=== PATIENT | female | born 1985 | race Caucasian/White ===

== ENCOUNTER 2016-12-30 08:31 | Emergency (ER) | payer BC, MEDICAID ==
[2016-12-30 08:47] VITALS: BP 110/63
--- NOTE | 2016-12-30 09:01 | EDM.PDOC ---
ED HPI ENT - General Chief Complaint: ENT Problem Stated Complaint: TOOTH Time Seen by Provider: 12/30/16 08:45 Source of Information: Reports: Patient History Limitations: Reports: No limitations - History of Present Illness INITIAL COMMENTS - FREE TEXT/NARRATIVE: HISTORY AND PHYSICAL: History of present illness: [31-year-old female with no significant past medical history now several days status post wisdom teeth extraction. Patient is a smoker and she has smoked after her extraction. Now she is having increased pain at the right maxillary molar extraction site. Patient thinks she has dry socket. She had it once before after an extraction and she smoked in that post procedural period as well. No swelling no fevers chills sweats or shaking chills no headache or stiff neck. Patient describes painless extraocular muscle excursion. No chest pain palpitations or shortness of breath Review of systems: As per history of present illness and below otherwise all systems reviewed and negative. Past medical history: As per history of present illness and as reviewed below otherwise noncontributory. Surgical history: As per history of present illness and as reviewed below otherwise noncontributory. Social history: No reported history of drug or alcohol abuse. Family history: As per history of present illness and as reviewed below otherwise noncontributory. Physical exam: HEENT: Atraumatic, normocephalic, pupils reactive, negative for conjunctival pallor or scleral icterus, mucous membranes moist, throat clear, neck supple, nontender, trachea midline. Intraoral exam benign and unremarkable appearance of right maxillary molar extraction site with no swelling mass or fluctuance. There is some local tenderness Lungs: Clear to auscultation, breath sounds equal bilaterally, chest nontender. Heart: S1S2, regular, negative for clicks, rubs, or JVD. Abdomen: nondistended, . Negative for costovertebral tenderness. Pelvis: Normal appearing. Genitourinary: Deferred. Rectal: Deferred. Extremities: Atraumatic, normal-appearing Neuro: Awake, alert, oriented. Cranial nerves grossly unremarkable. Cerebellum unremarkable. Motor and sensory unremarkable throughout. Exam nonfocal. Diagnostics: [] Therapeutics: [] Impression: [] Plan: [Signs and symptoms consistent with dry socket in a patient who is an active smoker with a prior history of dry socket in the context of smoking after prior dental extraction. Patient feels symptoms are identical with worsening pain at the site of a single extraction. No evidence of abscess swelling or mass. Patient aware to take NSAIDs. Topical lidocaine dental ball applied. Patient given dose of NSAIDs in the emergency department. Discussed with patient will give prescription for 5 [place] for use as needed as patient states the pain is significant and makes it difficult for her to sleep. She is aware to followup with her dental provider for reevaluation tomorrow. No further workup or treatment indicated. patient agrees with outpatient followup. Strict return precautions given Definitive disposition and diagnosis as appropriate pending reevaluation and review of above. - Related Data Allergies/ADRs: Allergies Allergy/AdvReac Type Severity Reaction Status Date / Time lurasidone [From Latuda] Allergy Hives Verified 12/30/16 08:45 Home Meds: Home Meds Levofloxacin [Levaquin] 750 mg PO DAILY #10 tablet 07/25/16 [Rx] Past Medical History - Past Health History Medical/Surgical History: Denies Medical/Surgical History HEENT History: Reports: Impaired vision Other HEENT History: wears glasses Cardiovascular History: Reports: None Respiratory History: Reports: None Gastrointestinal History: Reports: Chronic constipation Genitourinary History: Reports: None [employer] CHIEF History: Reports: Musculoskeletal History: Reports: Fracture, Fibromyalgia Other Musculoskeletal History: hx of fx left wrist Neurological History: Reports: None Psychiatric History: Reports: Anxiety, Depression Endocrine/Metabolic History: Reports: None Hematologic History: Reports: None Immunologic History: Reports: None Oncologic (Cancer) History: Reports: None Dermatologic History: Reports: None - Infectious Disease History Infectious Disease History: Reports: Chicken pox, MRSA - Past Surgical History Head Surgeries/Procedures: Reports: None HEENT Surgical History: Reports: None Cardiovascular Surgical History: Reports: None Respiratory Surgical History: Reports: None GI Surgical History: Reports: None Female Surgical History: Reports: Other (see below) Other Female Surgeries/Procedures: Laparoscopy Endocrine Surgical History: Reports: None Neurological Surgical History: Reports: None Musculoskeletal Surgical History: Reports: None Oncologic Surgical History: Reports: None Dermatological Surgical History: Reports: None Social & Family History - Family History Family Medical History: Noncontributory - Tobacco Use Smoking Status *Q: Current Every Day Smoker Years of Tobacco use: 13 Packs/Tins Daily: 0.5 Second Hand Smoke Exposure: Yes - Caffeine Use Caffeine Use: Reports: Coffee, Energy drinks, Soda Caffeine Use Comment: 1-2/day - Recreational Drug Use Recreational Drug Use: No Drug Use in Last 12 Months: Yes Recreational Drug Type: Reports: Methamphetamine, Other (see below) Other Recreational Drug Type: pain killers Recreational Drug Use Frequency: Weekly Recreational Drug Last Use: 07/23/16 ED ROS ENT - Review of Systems Review Of Systems: See Below (Per history of present illness) ED EXAM, ENT - Physical Exam Exam: See Below (Per history of present illness) Course - Vital Signs Last Recorded V/S: Last Vital Signs Temp 36.9 C 12/30/16 08:42 Pulse 92 12/30/16 08:42 Resp 16 12/30/16 08:42 BP 110/63 12/30/16 08:42 Pulse Ox 99 12/30/16 08:42 - Orders/Labs/Meds Meds: Medications Discontinued Medications Generic Name Dose Route Start Last Admin Trade Name Tony PRN Reason Stop Dose Admin Benzocaine 2 each 12/30/16 09:05 12/30/16 09:13 Hurricaine One 20% MUCMEM 12/30/16 09:06 2 each ONETIME ONE Administration Ketorolac Tromethamine 60 mg 12/30/16 09:05 12/30/16 09:13 Toradol IM 12/30/16 09:06 60 mg ONETIME ONE Administration Lidocaine HCl 20 ml 12/30/16 09:05 12/30/16 09:16 Xylocaine 2% Viscous PO 12/30/16 09:06 Not Given ONETIME ONE Lidocaine HCl 15 ml 12/30/16 09:12 12/30/16 09:13 Xylocaine 2% Viscous PO 12/30/16 09:13 15 ml ONETIME ONE Administration Lidocaine HCl Confirm 12/30/16 09:10 12/30/16 09:17 Xylocaine 2% Viscous Administered 12/30/16 09:11 Not Given Dose 15 ml .ROUTE .STK-MED ONE Departure - Departure Time of Disposition: 09:23 Disposition: Home, Self-Care 01 Condition: good Clinical Impression: Alveolar osteitis Instructions: Dental Dry Socket, [id number] Referrals: PCP,None [Primary Care Provider] - Forms: ED Department Discharge Additional Instructions: Your symptoms and findings suggesting a dry socket from your recent tooth extraction. It is very likely that your continued smoking after the dental procedure precipitated this. Stop smoking. Take 800 mg ibuprofen every 6 hours as needed for pain. You've been given a prescription for 5 [place] 5/325 -use [place] as needed time if you're unable to sleep because of pain drink alcohol or take any other sedative medication in addition to this medication. Failure to heed this warning could result in . Followup with your oral surgeon tomorrow for reevaluation, further care, and continued pain control as needed.
[2016-12-30] MEDS ORDERED: Benzocaine 20% Topical Spray UD MUCMEM ONE (09:05)
[2016-12-30] MEDS ORDERED: Lidocaine 2% Viscous Solution 100 ML Bottle PO ONE (09:05)
[2016-12-30] MEDS ORDERED: Ketorolac 60 MG/2 ML SDV IM ONE (09:05)
[2016-12-30] MEDS ORDERED: Lidocaine 2% Viscous Solution 15 ML Cup ONE (09:10)
[2016-12-30] MEDS ORDERED: Lidocaine 2% Viscous Solution 15 ML Cup PO ONE (09:12)
== END 2016-12-30 09:37 | disposition home or self-care (01) ==
LOC: MW.ED 08:31
DX: M27.3 Alveolitis of jaws (principal); F17.210 Nicotine dependence, cigarettes, uncomplicated; Z88.8 Allergy status to other drugs, medicaments and biological substances; Z79.899 Other long term (current) drug therapy; Z98.890 Other specified postprocedural states
CPT/HCPCS: 99282; A9270; J1885; 99283

== ENCOUNTER → 2017-01-22 | Outpatient (CLI) | payer BC, MEDICAID ==
--- NOTE | 2017-01-23 12:14 | CR ---
EXAM DATE: 01/22/17 PATIENT'S AGE: 31 Patient: GENEVIEVE GOMEZ Facility: [place], [place] Site . Site : 1985 Study: XRay Spine Cervical [id number]/25/2017 9:03:41 AM Ordering Physician: Germaine Otero Final Report: HISTORY: Neck pain to right shoulder. Findings: AP, lateral and open-mouth views of the cervical spine demonstrate the dens is intact. The lateral masses are situated normally on C2. The atlanto dens interval is normal. There is loss of lordosis present. Prevertebral soft tissues are normal. There is minimal peridiscal spurring seen at C5-6. No subluxation is seen. Impression: 1. Loss of lordosis. This may be a result of muscle spasm versus positioning. 2. Minimal degenerative changes of the disc at C5-6. Dictated by Brittany Reinoso MD @ Jan 23 2017 1:54AM (Electronic Signature) Report Signed by Proxy and Original Signed Document filed in the Medical Record. MTDD
--- NOTE | 2017-01-25 15:19 | BTN ---
SERVICE DATE: 01/25/2017 PATIENT #: [id number] #: NOT DICTATED IDENTIFICATION: Naveen is a 31-year-old female, who is here today for a followup visit. I saw her, almost a month ago. CURRENT MEDICATIONS: Wellbutrin XL 450 mg daily, Paxil 20 mg b.i.d. She also takes Seroquel 200 mg at bedtime, vitamin B complex, elemental folate, and fish oil. ALLERGIES: She has an allergy to Latuda. CHIEF COMPLAINT: "Alright." HISTORY OF PRESENT ILLNESS: Naveen states that she is kind a headed down week. Her mom and her 9-year-old daughter just left about a week ago, so she has been more down this week than before. She thinks the increase in the Paxil has helped a little bit and in reviewing her previous medications, she has been on just about every medication and most of them have provided very little benefit or no benefit at all. She is getting 7 or 8 hours of sleep at night, but does wake up in the night but gets to sleep within 5-10 minutes. Rates her mood on a scale of 1-10, 1 is the worst, 10 is the best, at about a seven. PHQ-9 score is 15, JORDEN-7 score is 8. She still has some anxiety symptoms, trouble relaxing, worries, feels anxious, no energy and that is probably her number one symptom. As she just has no energy, she constantly feels tired, trouble concentrating. No suicidal or homicidal ideation. Denies any hallucinations. PAST FAMILY SOCIAL HISTORY: She is going to probably be moving back to [place] where her daughter is. She said it is just too hard being away from her. Her mom lives in [place]. Her daughter lives with the daughter's dad in [place] and so Naveen feels that it would be best for her to go back there. She left there about 6-8 months ago because she got caught up in some drug staff, but she said she feels she has come a long ways and if she did leave it, would not be until at the earliest next June or maybe the following October. REVIEW OF SYSTEMS: She recently had some musculoskeletal issues. She felt something pulling her neck, so she went to see her primary care provider, and she may need to have an MRI. The provider gave her some diclofenac as well as some cyclobenzaprine. She said she did not have to take cyclobenzaprine during the day yesterday, but last night she did have to. She is also concerned because she has had a 35- pound weight gain in the last 6 months, but we discussed that this might because beforehand she was not eating when she was doing drugs and now she has a bigger appetite. It also could be from the Seroquel. PHYSICAL EXAMINATION: VITAL SIGNS: Blood pressure is 117/77, heart rate 88, respirations 16, temperature is 98.8. Height 65-1/2 inches tall, weight is 169.4 pounds. GENERAL APPEARANCE: She is very well groomed, very pleasant, appears her stated age. Muscle strength and tone appears good. Gait and station are good. Speech is clear and appropriate. Coherent. Thought processes are logical. Associations are intact. I do not see any delusions. She denies hallucinations. Mood and affect are pleasant, euthymic, and are congruent. Insight and judgment appear to be intact. MENTAL STATUS EXAM: She is alert and oriented x3. Recent and remote memory appear intact. Attention span appears to be good. Language is adequate. Fund of knowledge appears adequate. DIAGNOSES: [place] I: Bipolar depression, F31.60; anxiety, F41.8. [place] II: No diagnosis. [place] III: She has some kind of a muscle issue in her neck right now. [place] IV: Stressors, her daughter going back to [place], her fatigue during the day which has been significant still. [place] V: Current Global Assessment of Functioning score 69. TREATMENT PLAN: We discussed different options. We also discussed the possibility of maybe trying to get the sleep study done, but she said there was just absolutely no way she can afford it with her high deductible at this time. The tiredness and fatigue are not anything real new. She has always had a tendency to be very tired throughout her life, but she has noticed it more in the last year, so I am going to increase the Paxil to 30 mg b.i.d. and see if that makes any benefit for her or if it helps at all. Paxil has been the one thing that has been helpful to her, so hopefully we can get a little bit more benefit from it. I am going to see her back in a month. If she has problems before that, she will call. /[id number]
== END ==
LOC: MW.CHFP 08:50
PROVIDERS: ATTEND Nurse Practitioner Family
DX: S16.1XXA Strain of muscle, fascia and tendon at neck level, initial encounter (principal); M40.50 Lordosis, unspecified, site unspecified
CPT/HCPCS: 72040; 72040-26

== ENCOUNTER → 2017-02-13 | Outpatient (CLI) | payer BC, MEDICAID ==
--- NOTE | 2017-02-27 16:50 | BTN ---
SERVICE DATE: 02/27/2017 PATIENT #: [id number] #: NOT DICTATED IDENTIFICATION: Naveen is a 31-year-old female, who is here today for a followup. CURRENT MEDICATIONS: Paxil 30 mg b.i.d., Wellbutrin XL 450 mg a day, Seroquel 200 mg at bedtime, L- methylfolate 15 mg a day. She takes omega-3 fatty acids and B complex. ALLERGIES: She has an allergy to Latuda. CHIEF COMPLAINT: "just being so tired." HISTORY OF PRESENT ILLNESS: Naveen has had some issues with this fatigue now for quite a while. Initially it sounded like it just started recently, but in talking to her today, it has been going on for quite a while, even before she moved to [place], she has gained a lot a weight, but her weight has bounced back and forth over the last 5 years. Highest her weight went was 190 pounds, today she is at 171.8 pounds. She has lost weight in the past by doing exercising and doing phentermine from her doctor. She has tried recently shred stack, Hydroxycut, and crave but none of those seems to have helped. She is extremely tired. She does not get any exercise. She said her mood is okay. No suicidal or homicidal ideation. Sleeps too good. PHQ-9 score is 16. She states that since we increased the Paxil to 30 mg twice a day, she has not really seen a big change with that. Stressors are just her extreme fatigue, her weight gain, and the fact that her daughters in [place]. I talked to her about the Seroquel at bedtime and that could certainly create some of this weight gain plus it can also create the sedation, but she said she has to take Seroquel at bedtime or she does not sleep, so she does not want to get rid of that. She is willing to get rid of the Paxil and maybe try something different. She has tried just a huge variety of medications in the past and those include previous medication she has tried include Abilify, Cymbalta, Zoloft, Celexa, trazodone, Paxil, Effexor, Latuda, Lamictal, and Risperdal, to name a few, she said there might even be more than that, she does not remember. So, overall her big issues are the weight gain and extreme fatigue and she does have a history in the past of some drug abuse. She said her drug of choice was always the opiates. PAST FAMILY AND SOCIAL HISTORY: She is from [place], and I think part of the issue is that she is lonesome here, she does not have anyone here other than she does have a sister, but she is pretty much on her own. 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 REVIEW OF SYSTEMS: I went back, I checked her lab, she recently had a UTI but other than that, there have been no medical problems. She states that when she lived in [place], they did do some checking on her thyroid, she thinks, but she is not sure and I do not have anything on file for that, but she does not know about anemia. She is not really sure whether it is thyroid, but other than that, she has never had any like cardiac problems, respiratory problems, although she does smoke cigarettes still. PHYSICAL EXAMINATION: VITAL SIGNS: Blood pressure is 114/74, heart rate 92, respirations 16, temperature is 98.5, weight is 171.8 pounds, height 65-1/2 inches. GENERAL APPEARANCE: Naveen is well groomed. She is very pleasant, well developed, well nourished. She appears her stated age. Her gait and station are normal. Her speech is clear and appropriate. I do not see any perseverating. Her thought processes are logical and linear. I do not see any pressured speech or tangential speech. She denies hallucinations. I do not see any delusions. She said her mood is "okay." Affect appears a little bit flat. Insight and judgment appears to be fairly good. MENTAL STATUS EXAMINATION: She is alert and oriented x3. Recent and remote memory appear intact. Attention span appears good. Language good. Fund of knowledge appears adequate for developmental age. DIAGNOSES: [place] I: Bipolar, mixed, F31.60. Anxiety, F41.8. [place] II: No diagnosis. [place] III: No diagnosis. [place] IV: Current stressors; her fatigue, the weight gain. [place] V: Current Global Assessment of Functioning score 67. TREATMENT PLAN: We discussed many options, such as maybe going back to her primary care and see if she can get on phentermine again and get on a good diet plan and that might increase her energy and also help her lose weight on top of she needs to do some exercising. She does not want to stop the Seroquel because she feels like she will not sleep without that and that could be a culprit with both of these issues. She wants to try something different in the Paxil. She said she is doing okay, but she has never really seen a good benefit with it. We have talked in the past about different medications and whatever we have talked about is Trintellix. She would like to give that a try. If that does not work, I want her to see her primary care to see if they can come up with why she is so incredibly fatigued. She was supposed to have a sleep study done, that has not been done because she could not get to [facility] and do it and I do not know, if that is indeed what is going on here, but anyway we will wean off the Paxil, she will do 15 mg b.i.d. for 7 days and then discontinue. At the same time, this week, she will start Trintellix 5 mg a day. I discussed side effects with her. I had considered momentarily maybe doing a stimulant but with her history of drug abuse, I do not think that is a good idea. I am also going to get some labs. I cannot find any labs in her record whatsoever. I am going to get a CMP, a CBC, and a thyroid study and see if there is anything there that indicates why she is so incredibly tired. Hopefully, we will get some benefit from the Trintellix. I am going to see her back in a month. If she has problems before that, she will call. /[id number]
== END ==
LOC: MW.CHFP 15:35
PROVIDERS: ATTEND Nurse Practitioner Family
DX: Z00.00 Encounter for general adult medical examination without abnormal findings (principal); R39.9 Unspecified symptoms and signs involving the genitourinary system
CPT/HCPCS: 81001; 81025; 87086; 87088; 87186

== ENCOUNTER 2018-01-11 09:07 | Emergency (ER) | payer BC ==
[2018-01-11] MEDS ORDERED: Ketorolac 30 MG/ML SDV IVPUSH ONE (09:23)
[2018-01-11] MEDS ORDERED: Sodium Chloride 0.9% 1,000 ML IV ONE (09:23)
[2018-01-11] MEDS ORDERED: Sodium Chloride 0.9% 500 ML IV SCH ×2 (09:45)
[2018-01-11 10:21] LABS: CHLORIDE,CL 107 mmol/L (98-107); SODIUM,NA 141 mmol/L (136-145)
[2018-01-11] MEDS ORDERED: LORazepam 2 MG/ML SDV IVPUSH ONE (10:53)
[2018-01-11] MEDS ORDERED: Promethazine 25 MG/ML SDV IM ONE (10:53)
[2018-01-11] MEDS ORDERED: diphenhydrAMINE 50 MG/ML SDV IVPUSH ONE (10:53)
[2018-01-11] MEDS ORDERED: Meperidine PF 25 MG/ML Syringe IVPUSH ONE (11:29)
--- NOTE | 2018-01-11 11:36 | EDM.PDOC ---
ED HPI GENERAL MEDICAL PROBLEM - General Chief Complaint: Headache Stated Complaint: HEADACHES Time Seen by Provider: 01/11/18 11:32 Source of Information: Reports: Patient - History of Present Illness INITIAL COMMENTS - FREE TEXT/NARRATIVE: HISTORY AND PHYSICAL: History of present illness: [Patient with history of migraine presents with headache which is lasted 4-5 days, she has been taking Fioricet without any benefit she rates pain 5 out of 10 diffuse with intermittent nausea no current fever nausea vomiting diarrhea constipation chest pain shortness breath dizziness or palpitation no bowel or urine symptoms no scotomas or visual change ] Review of systems: As per history of present illness and below otherwise all systems reviewed and negative. Past medical history: As per history of present illness and as reviewed below otherwise noncontributory. Surgical history: As per history of present illness and as reviewed below otherwise noncontributory. Social history: No reported history of drug or alcohol abuse. Family history: As per history of present illness and as reviewed below otherwise noncontributory. Physical exam: HEENT: Atraumatic, normocephalic, pupils reactive, negative for conjunctival pallor or scleral icterus, mucous membranes moist, throat clear, neck supple, nontender, trachea midline. Lungs: Clear to auscultation, breath sounds equal bilaterally, chest nontender. Heart: S1S2, regular, negative for clicks, rubs, or JVD. Abdomen: Soft, nondistended, nontender. Negative for masses or hepatosplenomegaly. Negative for costovertebral tenderness. Pelvis: Stable nontender. Genitourinary: Deferred. Rectal: Deferred. Extremities: Atraumatic, negative for cords or calf pain. Neurovascular unremarkable. Neuro: Awake, alert, oriented. Cranial nerves II through XII unremarkable. Cerebellum unremarkable. Motor and sensory unremarkable throughout. Exam nonfocal. Diagnostics: [ BCT CMP UA hCG Head CT no contrast ] Therapeutics: [1 L normal saline bolus Zofran 8 mg IV Toradol 30 mg IV Ativan 1 mg, Benadryl 50 mg, Phenergan 25 mg IV Demerol 25 mg IV Patient headache improved Follow-up with neurology Impression: [ headache - improved] Definitive disposition and diagnosis as appropriate pending reevaluation and review of above. Headache Pain Score (Numeric/FACES): 7 - Related Data Allergies Allergy/AdvReac Type Severity Reaction Status Date / Time lurasidone [From Latuda] Allergy Hives Verified 01/11/18 09:16 Home Meds: Home Meds Levofloxacin [Levaquin] 750 mg PO DAILY #10 tablet 07/25/16 [Rx] Acetaminophen/Butalbital/Caff [Fioricet 325-50-40 MG] 1 tab PO BID 01/11/18 [ History] Desvenlafaxine Succinate [Pristiq] 25 mg PO DAILY 01/11/18 [History] Escitalopram [Lexapro] 20 mg PO DAILY 01/11/18 [History] Ramireno Carbonate [Eskalith] 300 mg PO DAILY 01/11/18 [History] buPROPion [buPROPion XL] 450 mg PO DAILY 01/11/18 [History] Past Medical History - Past Health History Medical/Surgical History: Denies Medical/Surgical History HEENT History: Reports: Impaired Vision Other HEENT History: wears glasses Cardiovascular History: Reports: None Respiratory History: Reports: None Gastrointestinal History: Reports: Chronic Constipation Genitourinary History: Reports: None 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: Musculoskeletal History: Reports: Fracture, Fibromyalgia Other Musculoskeletal History: hx of fx left wrist Neurological History: Reports: None Psychiatric History: Reports: Anxiety, Depression Endocrine/Metabolic History: Reports: None Hematologic History: Reports: None Immunologic History: Reports: None Oncologic (Cancer) History: Reports: None Dermatologic History: Reports: None - Infectious Disease History Infectious Disease History: Reports: Hepatitis C - Past Surgical History Head Surgeries/Procedures: Reports: None Cardiovascular Surgical History: Reports: None Respiratory Surgical History: Reports: None Female Surgical History: Reports: Other (See Below) Endocrine Surgical History: Reports: None Neurological Surgical History: Reports: None Musculoskeletal Surgical History: Reports: None Oncologic Surgical History: Reports: None Dermatological Surgical History: Reports: None Social & Family History - Family History Family Medical History: Noncontributory - Tobacco Use Smoking Status *Q: Current Every Day Smoker Years of Tobacco use: 15 Packs/Tins Daily: 0.2 Second Hand Smoke Exposure: Yes - Caffeine Use Caffeine Use: Reports: Energy Drinks Caffeine Use Comment: 1-2/day - Recreational Drug Use Recreational Drug Use: No Drug Use in Last 12 Months: Yes Recreational Drug Type: Reports: Methamphetamine, Other (see below) Other Recreational Drug Type: pain killers Recreational Drug Use Frequency: Weekly Recreational Drug Last Use: 07/23/16 ED ROS GENERAL - Review of Systems Review Of Systems: ROS reveals no pertinent complaints other than HPI. ED EXAM, GENERAL - Physical Exam Exam: See Below Course - Vital Signs Last Recorded V/S: Last Vital Signs Temp 98.0 F 01/11/18 09:14 Pulse 82 01/11/18 10:37 Resp 16 01/11/18 10:37 BP 113/63 01/11/18 10:37 Pulse Ox 98 01/11/18 10:37 - Orders/Labs/Meds Orders: Active Orders 24 hr Category Date Time Status Head wo Cont [CT] Stat Exams 01/11/18 09:19 Taken HCG QUALITATIVE,URINE [URCHEM] Stat Lab 01/11/18 09:25 Ordered LITHIUM [REF] Stat Lab 01/11/18 09:40 Received UA W/MICROSCOPIC [URIN] Stat Lab 01/11/18 09:25 Ordered Sodium Chloride 0.9% [Normal Saline] 500 ml Med 01/11/18 09:45 Active IV .BOLUS Sodium Chloride 0.9% [Normal Saline] 500 ml Med 01/11/18 09:45 Active IV .BOLUS Medication Orders Sodium Chloride (Normal Saline) 500 mls @ 999 mls/hr IV .BOLUS YESSI Last Admin: 01/11/18 09:42 Dose: 999 mls/hr Sodium Chloride (Normal Saline) 500 mls @ 99 mls/hr IV .BOLUS YESSI Last Admin: 01/11/18 09:41 Dose: 99 mls/hr Labs: Laboratory Tests 01/11/18 01/11/18 01/11/18 Range/Units 09:25 09:25 09:40 WBC 5.81 (4.0-11.0) K/uL RBC 4.33 (4.30-5.90) M/uL Hgb 13.6 (12.0-16.0) g/dL Hct 39.1 (36.0-46.0) % MCV 90.3 (80.0-98.0) fL MCH 31.4 (27.0-32.0) pg MCHC 34.8 (31.0-37.0) g/dL RDW Std Deviation 40.8 (28.0-62.0) fl RDW Coeff of Ana 12 (11.0-15.0) % Plt Count 238 (150-400) K/uL MPV 9.20 (7.40-12.00) fL Neut % (Auto) 59.6 (48.0-80.0) % Lymph % (Auto) 28.2 (16.0-40.0) % [place] % (Auto) 7.4 (0.0-15.0) % Eos % (Auto) 4.5 (0.0-7.0) % Baso % (Auto) 0.3 (0.0-1.5) % Neut # (Auto) 3.5 (1.4-5.7) K/uL Lymph # (Auto) 1.6 (0.6-2.4) K/uL [place] # (Auto) 0.4 (0.0-0.8) K/uL Eos # (Auto) 0.3 (0.0-0.7) K/uL Baso # (Auto) 0.0 (0.0-0.1) K/uL Nucleated RBC % 0.0 /100WBC Nucleated RBCs # 0 K/uL Sodium (136-145) mmol/L Potassium (3.5-5.1) mmol/L Chloride (98-107) mmol/L Carbon Dioxide (21.0-32.0) mmol/L BUN (7.0-18.0) mg/dL Creatinine (0.6-1.0) mg/dL Est Cr Clr Drug Dosing mL/min Estimated GFR (MDRD) ml/min Glucose (74-106) mg/dL Calcium (8.5-10.1) mg/dL Total Bilirubin (0.2-1.0) mg/dL AST (15-37) IU/L ALT (14-63) IU/L Alkaline Phosphatase (46-116) U/L Total Protein (6.4-8.2) g/dL Albumin (3.4-5.0) g/dL Globulin (2.0-3.5) g/dL Albumin/Globulin Ratio (1.3-2.8) Urine Color YELLOW Urine Appearance CLEAR Urine pH 5.5 (5.0-8.0) Ur Specific [place] >= 1.030 (1.001-1.035) Urine Protein NEGATIVE (NEGATIVE) mg/dL Urine Glucose (UA) NEGATIVE (NEGATIVE) mg/dL Urine Ketones NEGATIVE (NEGATIVE) mg/dL Urine Occult Blood NEGATIVE (NEGATIVE) Urine Nitrite NEGATIVE (NEGATIVE) Urine Bilirubin NEGATIVE (NEGATIVE) Urine Urobilinogen 0.2 (<2.0) EU/dL Ur Leukocyte Esterase NEGATIVE (NEGATIVE) Urine RBC 1-3 (0-2/HPF) Urine WBC 2-4 (0-5/HPF) Ur Epithelial Cells MODERATE (NONE-FEW) Urine Bacteria FEW (NEGATIVE) Urine Mucus LIGHT (NONE-MOD) Urine HCG, Qual NEGATIVE (NEGATIVE) 01/11/18 Range/Units 09:40 WBC (4.0-11.0) K/uL RBC (4.30-5.90) M/uL Hgb (12.0-16.0) g/dL Hct (36.0-46.0) % MCV (80.0-98.0) fL MCH (27.0-32.0) pg MCHC (31.0-37.0) g/dL RDW Std Deviation (28.0-62.0) fl RDW Coeff of Ana (11.0-15.0) % Plt Count (150-400) K/uL MPV (7.40-12.00) fL Neut % (Auto) (48.0-80.0) % Lymph % (Auto) (16.0-40.0) % [place] % (Auto) (0.0-15.0) % Eos % (Auto) (0.0-7.0) % Baso % (Auto) (0.0-1.5) % Neut # (Auto) (1.4-5.7) K/uL Lymph # (Auto) (0.6-2.4) K/uL [place] # (Auto) (0.0-0.8) K/uL Eos # (Auto) (0.0-0.7) K/uL Baso # (Auto) (0.0-0.1) K/uL Nucleated RBC % /100WBC Nucleated RBCs # K/uL Sodium 141 (136-145) mmol/L Potassium 3.7 (3.5-5.1) mmol/L Chloride 107 (98-107) mmol/L Carbon Dioxide 25.5 (21.0-32.0) mmol/L BUN 15 (7.0-18.0) mg/dL Creatinine 0.8 (0.6-1.0) mg/dL Est Cr Clr Drug Dosing 90.96 mL/min Estimated GFR (MDRD) > 60.0 ml/min Glucose 125 H (74-106) mg/dL Calcium 9.0 (8.5-10.1) mg/dL Total Bilirubin 0.2 (0.2-1.0) mg/dL AST 21 (15-37) IU/L ALT 21 (14-63) IU/L Alkaline Phosphatase 37 L (46-116) U/L Total Protein 7.3 (6.4-8.2) g/dL Albumin 3.8 (3.4-5.0) g/dL Globulin 3.5 (2.0-3.5) g/dL Albumin/Globulin Ratio 1.1 L (1.3-2.8) Urine Color Urine Appearance Urine pH (5.0-8.0) Ur Specific [place] (1.001-1.035) Urine Protein (NEGATIVE) mg/dL Urine Glucose (UA) (NEGATIVE) mg/dL Urine Ketones (NEGATIVE) mg/dL Urine Occult Blood (NEGATIVE) Urine Nitrite (NEGATIVE) Urine Bilirubin (NEGATIVE) Urine Urobilinogen (<2.0) EU/dL Ur Leukocyte Esterase (NEGATIVE) Urine RBC (0-2/HPF) Urine WBC (0-5/HPF) Ur Epithelial Cells (NONE-FEW) Urine Bacteria (NEGATIVE) Urine Mucus (NONE-MOD) Urine HCG, Qual (NEGATIVE) Meds: Medications Generic Name Dose Route Start Last Admin Trade Name Freq PRN Reason Stop Dose Admin Sodium Chloride 500 mls @ 999 mls/hr 01/11/18 09:45 01/11/18 09:42 Normal Saline IV 999 mls/hr .BOLUS YESSI Administration Sodium Chloride 500 mls @ 99 mls/hr 01/11/18 09:45 01/11/18 09:41 Normal Saline IV 99 mls/hr .BOLUS YESSI Administration Discontinued Medications Generic Name Dose Route Start Last Admin Trade Name Freq PRN Reason Stop Dose Admin Diphenhydramine HCl 50 mg 01/11/18 10:53 01/11/18 11:04 Benadryl IVPUSH 01/11/18 10:54 50 mg ONETIME ONE Administration Sodium Chloride 1,000 mls @ 999 mls/hr 01/11/18 09:23 01/11/18 09:42 Normal Saline IV 01/11/18 10:23 Not Given STAT ONE Ketorolac Tromethamine 30 mg 01/11/18 09:23 01/11/18 09:42 Toradol IVPUSH 01/11/18 09:24 30 mg ONETIME ONE Administration Lorazepam 1 mg 01/11/18 10:53 01/11/18 11:04 Ativan IVPUSH 01/11/18 10:54 1 mg ONETIME ONE Administration Meperidine HCl 25 mg 01/11/18 11:29 Demerol IVPUSH 01/11/18 11:30 ONETIME ONE Promethazine HCl 25 mg 01/11/18 10:53 01/11/18 11:04 Phenergan IM 01/11/18 10:54 25 mg ONETIME ONE Administration Departure - Departure Time of Disposition: 11:34 Disposition: Home, Self-Care 01 Condition: Good Clinical Impression: Migraine - Discharge Information Referrals: PCP,None [Primary Care Provider] - Additional Instructions: Continue current home medications as prescribed Return if symptoms persist or worsen ER referra for neurology consultation follow-up PRIMARY care as needed [facility] - Neurology Professional Building [address] [place] [address], [address] [place] [address] [facility] [address] [place] [address] The following information is given to patients seen in the emergency department who are being discharged to home. This information is to outline your options for follow-up care. We provide all patients seen in our emergency department with a follow-up referral. The need for follow-up, as well as the timing and circumstances, are variable depending upon the specifics of your emergency department visit. If you don't have a primary care physician on staff, we will provide you with a referral. We always advise you to contact your personal physician following an emergency department visit to inform them of the circumstance of the visit and for follow-up with them and/or the need for any referrals to a consulting specialist. The emergency department will also refer you to a specialist when appropriate. This referral assures that you have the opportunity for follow-up care with a specialist. All of these measure are taken in an effort to provide you with optimal care, which includes your follow-up. Under all circumstances we always encourage you to contact your private physician who remains a resource for coordinating your care. When calling for follow-up care, please make the office aware that this follow-up is from your recent emergency room visit. If for any reason you are refused follow-up, please contact the [facility] emergency department at and asked to speak to the emergency department charge nurse. - My Orders Last 24 Hours: My Active Orders 01/11/18 09:19 Head wo Cont [CT] Stat 01/11/18 09:25 HCG QUALITATIVE,URINE [URCHEM] Stat UA W/MICROSCOPIC [URIN] Stat 01/11/18 09:40 LITHIUM [REF] Stat 01/11/18 09:45 Sodium Chloride 0.9% [Normal Saline] 500 ml IV .BOLUS Sodium Chloride 0.9% [Normal Saline] 500 ml IV .BOLUS - Assessment/Plan Last 24 Hours: My Active Orders 01/11/18 09:19 Head wo Cont [CT] Stat 01/11/18 09:25 HCG QUALITATIVE,URINE [URCHEM] Stat UA W/MICROSCOPIC [URIN] Stat 01/11/18 09:40 LITHIUM [REF] Stat 01/11/18 09:45 Sodium Chloride 0.9% [Normal Saline] 500 ml IV .BOLUS Sodium Chloride 0.9% [Normal Saline] 500 ml IV .BOLUS
[2018-01-11 12:10] VITALS: BP 114/66
--- NOTE | 2018-01-13 09:57 | CT ---
EXAM DATE: 01/11/18 PATIENT'S AGE: 32 Patient: GENEVIEVE GOMEZ Facility: [place], [place] Site . Site : 1985 Study: CT Head WO CONT [id number]/14/2018 10:31:35 AM Ordering Physician: Doctor Kendall Final Report: INDICATION: Headaches. Frontal pain. COMPARISON: None. TECHNIQUE: Axial CT of the head without contrast. FINDINGS: Normal brain parenchymal morphology. No acute intracranial hemorrhage, focal edema, mass effect, or fracture. No midline shift. No abnormal ventricular dilatation. Normal calvarium and skull base. Visualized paranasal sinuses and mastoid air cells are clear. Visualized orbits are unremarkable. IMPRESSION: No acute intracranial abnormality. Normal brain parenchymal morphology Please note that all CT scans at this facility use dose modulation, iterative reconstruction, and/or weight-based dosing when appropriate to reduce radiation dose to as low as reasonably achievable. Dictated by Juan Carlos Vallejo MD @ Jan 11 2018 10:37AM (Electronic Signature) Report Signed by Proxy. MTDD
== END 2018-01-11 12:07 | disposition home or self-care (01) ==
LOC: MW.ED 09:07
DX: G43.909 Migraine, unspecified, not intractable, without status migrainosus (principal); F41.9 Anxiety disorder, unspecified; F17.210 Nicotine dependence, cigarettes, uncomplicated; F32.9 Major depressive disorder, single episode, unspecified; Z86.19 Personal history of other infectious and parasitic diseases; Z88.8 Allergy status to other drugs, medicaments and biological substances; Z79.899 Other long term (current) drug therapy
CPT/HCPCS: 70450; 80053; 80178; 81001; 81025; 85025; 96361; 96372; 96374; 96375; 99284; J1200; J1885; J2060; J2175; J2550; J7040

== ENCOUNTER 2018-05-05 08:00 | Day surgery (SDC) | payer BC ==
[~2018-05-05 08:00] MED LIST: Lactated Ringers 1,000 ML IV SCH
--- NOTE | 2018-05-05 08:40 | PCM.PREANE ---
Preanesthetic Assessment - Anesthesia/Transfusion/Family Hx Anesthesia History: Prior Anesthesia Without Reaction Family History of Anesthesia Reaction: No Transfusion History: No Prior Transfusion(s) - Review of Systems General: No Symptoms Pulmonary: No Symptoms Cardiovascular: No Symptoms Gastrointestinal: No Symptoms Neurological: No Symptoms Other: Reports: None - Physical Assessment NPO Status Date: 05/04/18 Height: 1.66 m Weight: 75.75 kg ASA Class: 2 Mental Status: Alert & Oriented x3 Airway Class: Mallampati = 1 Dentition: Reports: Normal Dentition ROM/Head Extension: Full Lungs: Clear to Auscultation, Normal Respiratory Effort Cardiovascular: Regular Rate, Regular Rhythm - Allergies Allergies/Adverse Reactions: Allergies Allergy/AdvReac Type Severity Reaction Status Date / Time lurasidone [From Latuda] Allergy Hives Verified 01/11/18 09:16 - Anesthesia Plan Pre-Op Medication Ordered: None - Acknowledgements Anesthesia Type Planned: General Anesthesia Pt an Appropriate Candidate for the Planned Anesthesia: Yes Alternatives and Risks of Anesthesia Discussed w Pt/Guardian: Yes Pt/Guardian Understands and Agrees with Anesthesia Plan: Yes Additional Comments: PMH: infrequent migraines, fibromyalgia controlled with NSAIDs, bipolar depression PLAN: GA-LMA PreAnesthesia Questionnaire - Past Health History Medical/Surgical History: Denies Medical/Surgical History HEENT History: Reports: Other (See Below) Other HEENT History: wears glasses Cardiovascular History: Reports: None Respiratory History: Reports: None Gastrointestinal History: Reports: GERD, Hepatitis Other Gastrointestinal History: takes OTC medications for heartburn- HX of Hepatitis C- took medication and is now negative Genitourinary History: Reports: None SU[employer] History: Reports: Musculoskeletal History: Reports: Fracture, Fibromyalgia Other Musculoskeletal History: hx of fx left wrist Neurological History: Reports: Concussion, Migraines Psychiatric History: Reports: Anxiety, Depression, PTSD Endocrine/Metabolic History: Reports: None Hematologic History: Reports: None Immunologic History: Reports: None Oncologic (Cancer) History: Reports: None Dermatologic History: Reports: None - Infectious Disease History Infectious Disease History: Reports: Hepatitis C - Past Surgical History Musculoskeletal Surgical History: Reports: Other (See Below) Other Musculoskeletal Surgeries/Procedures:: hx of I&D of arm abscess - SUBSTANCE USE Smoking Status *Q: Current Every Day Smoker Tobacco Use Within Last Twelve Months: Cigarettes Recreational Drug Use History: Yes - HOME MEDS Home Medications: Home Meds Desvenlafaxine Succinate [Pristiq] 100 mg PO DAILY 05/01/18 [History] Phendimetrazine Tartrate 35 mg PO TID 05/01/18 [History] QUEtiapine Fumarate [Seroquel] 25 - 50 mg PO BEDTIME 05/01/18 [History] buPROPion HCl [Wellbutrin Xl] 300 mg PO DAILY 05/01/18 [History] lamoTRIgine [Lamictal] 100 mg PO DAILY 05/01/18 [History] - CURRENT (IN HOUSE) MEDS Current Meds: Current Medications Lactated Ringer's (Ringers, Lactated) 1,000 mls @ 125 mls/hr IV ASDIRECTED YESSI
[2018-05-05] MEDS ORDERED: fentaNYL 100 MCG/2 ML SDV ONE (09:46)
[2018-05-05] MEDS ORDERED: Propofol 200 MG/20 ML SDV ONE (09:46)
[2018-05-05] MEDS ORDERED: Midazolam 1 MG/ML 2 ML SDV ONE (09:46)
[2018-05-05] MEDS ORDERED: Lidocaine 2% 5 ML SDV ONE (09:46)
[2018-05-05] MEDS ORDERED: Ondansetron 4 MG/2 ML SDV ONE (09:47)
[2018-05-05] MEDS ORDERED: Lidocaine 1% with EPINEPHrine 1:100,000 20 ML MDV ONE (10:50)
[2018-05-05] MEDS ORDERED: Ketorolac 15 MG/ML SDV IVPUSH ONE (12:24)
--- NOTE | 2018-05-05 12:30 | PCM.OPNOTE ---
- General Post-Op/Procedure Note Date of Surgery/Procedure: 05/05/18 Operative Procedure(s): LEEP Findings: EUA showed normal sized anteverted uterus Cervix stained with acetic acid showed acetowhite at 9oclock and 3 0clock Pre Op Diagnosis: SUSAN 3 Post-Op Diagnosis: SUSAN 3 Primary Surgeon: Komal Horn Anesthesia Provider: Preston Shannon Pathology: Leep specimen in 2 parts Top and bottom part Fluid Replacement, Intraop: 1,300 EBL in mLs: 5 Complications: None Condition: Good
--- NOTE | 2018-05-05 12:39 | PCM.POSTAN ---
POST ANESTHESIA ASSESSMENT - MENTAL STATUS Mental Status: Alert, Oriented - RESPIRATORY Respiratory Status: Respiratory Rate WNL, Airway Patent, O2 Saturation Stable - CARDIOVASCULAR CV Status: Pulse Rate WNL - GASTROINTESTINAL GI Status: No Symptoms - PAIN Pain Score: 5 - POST OP HYDRATION Hydration Status: Adequate & Stable - OBSERVATIONS Free Text/Narrative:: no anesthesia problems
--- NOTE | 2018-05-05 13:13 | PCM48HPAN ---
Post Anesthesia Note - EVALUATION WITHIN 48HRS OF ANESTHETIC Vital Signs in Normal Range: Yes Patient Participated in Evaluation: Yes Respiratory Function Stable: Yes Airway Patent: Yes Cardiovascular Function Stable: Yes Hydration Status Stable: Yes Pain Control Satisfactory: Yes Nausea and Vomiting Control Satisfactory: Yes Mental Status Recovered: Yes Resp Rate: 15 - COMMENTS/OBSERVATIONS Free Text/Narrative:: no anesthesia problems
[2018-05-05 13:16] VITALS: BP 115/56
--- NOTE | 2018-05-06 13:59 | OR ---
SURGEON: ANJU TOSCANO DATE OF PROCEDURE: 05/05/2018 PREOPERATIVE DIAGNOSIS: Cervical intraepithelial neoplasia III. POSTOPERATIVE DIAGNOSIS: Cervical intraepithelial neoplasia III. PROCEDURE: Loop electrosurgical excision procedure. IV FLUIDS: 700. ESTIMATED BLOOD LOSS: Minimal. ANESTHESIA: General anesthesia. FINDINGS: A normal-sized uterus. Colposcopy yielded acetowhite at 9 o'clock and 3 o'clock positions. BRIEF HISTORY ABOUT THE PATIENT: The patient has a history of high-grade Pap smear.Based on the result, patient had a colposcopy done in the office and had acetowhite at 9 o'clock and 3 o'clock positions. The patient could only tolerate biopsy at 9 o'clock position and ECC - result of biopsy SUSAN III. Based on the patient's results and pathology of SUSAN III, the patient was counseled for excision procedure. The patient understood the risks, benefits, and alternatives and decided to proceed with the procedure. PROCEDURE: The patient was taken to the operating room and placed in the dorsal supine position on where general anesthesia was administered without difficulty. She was placed in the dorsal lithotomy position where examination under anesthesia was performed. The patient was prepared and draped in the usual fashion. An insulated bivalve speculum was inserted into the vagina to expose the cervix. The cervix was injected with Lidocaine with epinephrine at 12 o'clock, 3 o'clock, 6 o'clock, and 9 o'clock . a 20 x 10 mm loop was then obtained and then used to obtain a cone biopsy. There was no bleeding countered. An endocervical hat was obtained with the 10mm X 5mm loop. Hemostasis was noted after the procedure, and the ball electrode was then used to cauterize the edges and base of the endocervical canal. All instruments were removed. The patient was awakened from general anesthesia without difficulty and transferred to the recovery room in stable condition. The patient tolerated the procedure well. AUBREY CONTRERAS /[id number] TALIB
== END 2018-05-05 13:05 | disposition home or self-care (01) ==
LOC: MW.SDS 08:00
PROVIDERS: ATTEND Obstetrics & Gynecology
DX: D06.0 Carcinoma in situ of endocervix (principal); F17.210 Nicotine dependence, cigarettes, uncomplicated; M79.7 Fibromyalgia; F41.9 Anxiety disorder, unspecified; F31.9 Bipolar disorder, unspecified; Z79.899 Other long term (current) drug therapy; Z88.8 Allergy status to other drugs, medicaments and biological substances
CPT/HCPCS: 36415; 57522; 84703; 85027; 86850; 86900; 86901; J2250; J2405; J2704; J3010; J7120; 00940

== ENCOUNTER 2018-06-17 00:50 | Emergency (ER) | payer BC ==
[2018-06-17] MEDS ORDERED: Sodium Chloride 0.9% 2.5 ML Syringe FLUSH PRN (01:09)
[2018-06-17] MEDS ORDERED: Ketorolac 30 MG/ML SDV IVPUSH ONE (01:09)
[2018-06-17] MEDS ORDERED: Sodium Chloride 0.9% 10 ML Syringe FLUSH PRN (01:09)
[2018-06-17] MEDS ORDERED: Morphine 2 MG/ML Syringe IVPUSH ONE (01:09)
[2018-06-17] MEDS ORDERED: Ondansetron 4 MG/2 ML SDV IVPUSH ONE ×2 (01:09→03:15)
[2018-06-17] MEDS ORDERED: Sodium Chloride 0.9% 1,000 ML IV ONE ×2 (01:09→03:29)
[2018-06-17] MEDS ORDERED: Pantoprazole 40 MG Vial IVPUSH ONE (01:09)
--- NOTE | 2018-06-17 01:14 | EDM.PDOC ---
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 She says she did not have fever or any flank pain and no chest pain or shortness of breath. She' s been nauseated with the pain and had one episodes of vomiting which was not black or bloody. Her last bowel movement was yesterday which was normal not diarrhea black or bloody. Patient says she does feel bloated and she hasn't a home test that was negative. She said that since her procedure on May 06 she has not yet started having a period. Patient says that since the procedure she has had several UTIs and still complains of urinary issues such as urgency and discomfort with urination but no hematuria. The patient currently says she is starting to have some spotting but is not bleeding like a menstrual cycle. She describes the pain as deep aching and cramping and she does feel bloated. She Has not had much to eat since this started has not taken any medications for the pain. Review of systems: As per history of present illness and below otherwise all systems reviewed and negative. Past medical history: As per history of present illness and as reviewed below otherwise noncontributory. Surgical history: As per history of present illness and as reviewed below otherwise noncontributory. Social history: No reported history of drug or alcohol abuse. Family history: As per history of present illness and as reviewed below otherwise noncontributory. Physical exam: General: Well-developed well-nourished female who looks uncomfortable in the room but is nontoxic and speaking clearly and moves easily in the ED without distress. Vital signs are noted by me HEENT: Atraumatic, normocephalic, pupils reactive, negative for conjunctival pallor or scleral icterus, mucous membranes a little tachycardia throat clear, neck supple, nontender, trachea midline. No cervical adenopathy Lungs: Clear to auscultation, breath sounds equal bilaterally, chest nontender. Heart: S1S2, regular rhythm and slightly tachycardic rate on my evaluation Abdomen: Soft, nondistended, with normoactive bowel sounds but there is tympany on percussion of the entire upper abdomen and the patient is uncomfortable with this. There is no rebound or guarding but she is diffusely tender more in the epigastrium and the mid abdominal areas. It does not localize right or left. Negative for masses or hepatosplenomegaly. Negative for costovertebral tenderness. Pelvis: Stable nontender. Genitourinary: Deferred. Rectal: Deferred. Extremities: Atraumatic, negative for cords or calf pain. Neurovascular unremarkable. Neuro: Awake, alert, oriented. Cranial nerves II through XII unremarkable. Cerebellum unremarkable. Motor and sensory unremarkable throughout. Exam nonfocal. Diagnostics: CBC CMP amylase lipase hCG UA urine culture H. pylori CT scan of the abdomen and pelvis Therapeutics: IV fluids Zofran Toradol Protonix morphine Dilaudid, Bentyl Levaquin All testing results were discussed with the patient and we will give her a dose of Levaquin for her UTI and send a urine culture. Patient is aware that CT scan is negative except for copious gas throughout the entire bowel and colonic fecal retention. I will give her dose of Bentyl here and send her home with Bentyl as well as Cipro for her UTI. I will give her Zofran for nausea and advised [id number] indications to evacuate gas and stool. Impression: Abdominal pain with nausea and vomiting, copious gas and colonic fecal retention , UTI Definitive disposition and diagnosis as appropriate pending reevaluation and review of above. Lower Abdominal Pain Score (Numeric/FACES): 8 - Related Data Allergies Allergy/AdvReac Type Severity Reaction Status Date / Time lurasidone [From Latuda] Allergy Hives Verified 01/11/18 09:16 Past Medical History - Past Health History Medical/Surgical History: Denies Medical/Surgical History HEENT History: Reports: Other (See Below) Other HEENT History: wears glasses Cardiovascular History: Reports: None Respiratory History: Reports: None Gastrointestinal History: Reports: GERD, Hepatitis Other Gastrointestinal History: takes OTC medications for heartburn- HX of Hepatitis C- took medication and is now negative Genitourinary History: Reports: None, UTI, Recurrent [employer] History: Reports: Musculoskeletal History: Reports: Fracture, Fibromyalgia Other Musculoskeletal History: hx of fx left wrist Neurological History: Reports: Concussion, Migraines Psychiatric History: Reports: Anxiety, Depression, PTSD Endocrine/Metabolic History: Reports: None Hematologic History: Reports: None Immunologic History: Reports: None Oncologic (Cancer) History: Reports: None Dermatologic History: Reports: None - Infectious Disease History Infectious Disease History: Reports: Hepatitis C - Past Surgical History Head Surgeries/Procedures: Reports: None HEENT Surgical History: Reports: None Cardiovascular Surgical History: Reports: None Respiratory Surgical History: Reports: None GI Surgical History: Reports: None Female Surgical History: Reports: Other (See Below) Other Female Surgeries/Procedures: Laparoscopy Endocrine Surgical History: Reports: None Neurological Surgical History: Reports: None Musculoskeletal Surgical History: Reports: Other (See Below) Other Musculoskeletal Surgeries/Procedures:: hx of I&D of arm abscess Oncologic Surgical History: Reports: None Dermatological Surgical History: Reports: None Social & Family History - Family History Family Medical History: Noncontributory - Tobacco Use Smoking Status *Q: Current Every Day Smoker Years of Tobacco use: 20 Packs/Tins Daily: 0.5 - Caffeine Use Caffeine Use: Reports: Coffee Caffeine Use Comment: 1-2/day - Recreational Drug Use Recreational Drug Use: No ED ROS GENERAL - Review of Systems Review Of Systems: ROS reveals no pertinent complaints other than HPI. ED EXAM, GENERAL - Physical Exam Exam: See Below (See dictation) Course - Vital Signs Last Recorded V/S: Last Vital Signs Temp 36.6 C 06/17/18 01:00 Pulse 74 06/17/18 03:12 Resp 16 06/17/18 03:12 BP 122/74 06/17/18 03:12 Pulse Ox 100 06/17/18 03:12 - Orders/Labs/Meds Orders: Active Orders 24 hr Category Date Time Status Abdomen Pelvis w Cont [CT] Stat Exams 06/17/18 01:09 Taken CULTURE URINE [RM] Stat Lab 06/17/18 01:12 Received Levofloxacin/Dextrose 5%-Water [Levaquin in D5W 500 MG/ Med 06/17/18 03:28 Ordered 100 ML] 500 mg Premix Bag 1 bag IV ONETIME Sodium Chloride 0.9% [Normal Saline] 1,000 ml Med 06/17/18 03:29 Ordered IV STAT Sodium Chloride 0.9% [Saline Flush] Med 06/17/18 01:09 Active 10 ml FLUSH ASDIRECTED PRN Sodium Chloride 0.9% [Saline Flush] Med 06/17/18 01:09 Active 2.5 ml FLUSH ASDIRECTED PRN Saline Lock Insert [OM.PC] Stat Oth 06/17/18 01:09 Ordered Medication Orders Levofloxacin/Dextrose 500 mg/ (Premix) 100 mls @ 100 mls/hr IV ONETIME ONE Stop: 06/17/18 04:27 Sodium Chloride (Saline Flush) 10 ml FLUSH ASDIRECTED PRN PRN Reason: Keep Vein Open Last Admin: 06/17/18 01:30 Dose: 10 ml Sodium Chloride (Saline Flush) 2.5 ml FLUSH ASDIRECTED PRN PRN Reason: Keep Vein Open Last Admin: 06/17/18 01:30 Dose: 2.5 ml Labs: Laboratory Tests 06/17/18 06/17/18 06/17/18 Range/Units 01:12 01:53 02:05 WBC 6.74 (4.0-11.0) K/uL RBC 4.40 (4.30-5.90) M/uL Hgb 14.2 (12.0-16.0) g/dL Hct 42.1 (36.0-46.0) % MCV 95.7 (80.0-98.0) fL MCH 32.3 H (27.0-32.0) pg MCHC 33.7 (31.0-37.0) g/dL RDW Std Deviation 43.0 (28.0-62.0) fl RDW Coeff of Ana 13 (11.0-15.0) % Plt Count 270 (150-400) K/uL MPV 10.90 (7.40-12.00) fL Neut % (Auto) 58.1 (48.0-80.0) % Lymph % (Auto) 33.2 (16.0-40.0) % [place] % (Auto) 7.4 (0.0-15.0) % Eos % (Auto) 1.2 (0.0-7.0) % Baso % (Auto) 0.1 (0.0-1.5) % Neut # (Auto) 3.9 (1.4-5.7) K/uL Lymph # (Auto) 2.2 (0.6-2.4) K/uL [place] # (Auto) 0.5 (0.0-0.8) K/uL Eos # (Auto) 0.1 (0.0-0.7) K/uL Baso # (Auto) 0.0 (0.0-0.1) K/uL Sodium (136-145) mmol/L Potassium (3.5-5.1) mmol/L Chloride (98-107) mmol/L Carbon Dioxide (21.0-32.0) mmol/L BUN (7.0-18.0) mg/dL Creatinine (0.6-1.0) mg/dL Est Cr Clr Drug Dosing mL/min Estimated GFR (MDRD) ml/min Glucose (74-106) mg/dL Calcium (8.5-10.1) mg/dL Total Bilirubin (0.2-1.0) mg/dL AST (15-37) IU/L ALT (14-63) IU/L Alkaline Phosphatase (46-116) U/L Total Protein (6.4-8.2) g/dL Albumin (3.4-5.0) g/dL Globulin (2.0-3.5) g/dL Albumin/Globulin Ratio (1.3-2.8) Amylase (25-115) U/L Lipase (73-393) U/L Urine Color DARK YELLOW Urine Appearance CLOUDY Urine pH 6.0 (5.0-8.0) Ur Specific [place] 1.025 (1.001-1.035) Urine Protein 100 (NEGATIVE) mg/dL Urine Glucose (UA) NEGATIVE (NEGATIVE) mg/dL Urine Ketones 40 H (NEGATIVE) mg/dL Urine Occult Blood LARGE H (NEGATIVE) Urine Nitrite POSITIVE H (NEGATIVE) Urine Bilirubin SMALL H (NEGATIVE) Urine Urobilinogen 1.0 (<2.0) EU/dL Ur Leukocyte Esterase TRACE (NEGATIVE) Urine RBC TOO NUMEROUS TO CT H (0-2/HPF) Urine WBC 4-7 (0-5/HPF) Ur Epithelial Cells MODERATE (NONE-FEW) Urine Bacteria 1+ H (NEGATIVE) Urine HCG, Qual NEGATIVE (NEGATIVE) H. pylori IgG Antibody (NEG) 06/17/18 06/17/18 Range/Units 02:05 02:05 WBC (4.0-11.0) K/uL RBC (4.30-5.90) M/uL Hgb (12.0-16.0) g/dL Hct (36.0-46.0) % MCV (80.0-98.0) fL MCH (27.0-32.0) pg MCHC (31.0-37.0) g/dL RDW Std Deviation (28.0-62.0) fl RDW Coeff of Ana (11.0-15.0) % Plt Count (150-400) K/uL MPV (7.40-12.00) fL Neut % (Auto) (48.0-80.0) % Lymph % (Auto) (16.0-40.0) % [place] % (Auto) (0.0-15.0) % Eos % (Auto) (0.0-7.0) % Baso % (Auto) (0.0-1.5) % Neut # (Auto) (1.4-5.7) K/uL Lymph # (Auto) (0.6-2.4) K/uL [place] # (Auto) (0.0-0.8) K/uL Eos # (Auto) (0.0-0.7) K/uL Baso # (Auto) (0.0-0.1) K/uL Sodium 140 (136-145) mmol/L Potassium 3.4 L (3.5-5.1) mmol/L Chloride 104 (98-107) mmol/L Carbon Dioxide 23.6 (21.0-32.0) mmol/L BUN 13 (7.0-18.0) mg/dL Creatinine 0.7 (0.6-1.0) mg/dL Est Cr Clr Drug Dosing 101.90 mL/min Estimated GFR (MDRD) > 60.0 ml/min Glucose 108 H (74-106) mg/dL Calcium 9.1 (8.5-10.1) mg/dL Total Bilirubin 0.7 (0.2-1.0) mg/dL AST 19 (15-37) IU/L ALT 24 (14-63) IU/L Alkaline Phosphatase 43 L (46-116) U/L Total Protein 7.9 (6.4-8.2) g/dL Albumin 4.3 (3.4-5.0) g/dL Globulin 3.6 H (2.0-3.5) g/dL Albumin/Globulin Ratio 1.2 L (1.3-2.8) Amylase 72 (25-115) U/L Lipase 182 (73-393) U/L Urine Color Urine Appearance Urine pH (5.0-8.0) Ur Specific [place] (1.001-1.035) Urine Protein (NEGATIVE) mg/dL Urine Glucose (UA) (NEGATIVE) mg/dL Urine Ketones (NEGATIVE) mg/dL Urine Occult Blood (NEGATIVE) Urine Nitrite (NEGATIVE) Urine Bilirubin (NEGATIVE) Urine Urobilinogen (<2.0) EU/dL Ur Leukocyte Esterase (NEGATIVE) Urine RBC (0-2/HPF) Urine WBC (0-5/HPF) Ur Epithelial Cells (NONE-FEW) Urine Bacteria (NEGATIVE) Urine HCG, Qual (NEGATIVE) H. pylori IgG Antibody NEGATIVE (NEG) Meds: Medications Generic Name Dose Route Start Last Admin Trade Name Tony PRN Reason Stop Dose Admin Levofloxacin/Dextrose 500 mg/ 100 mls @ 100 mls/hr 06/17/18 03:28 Premix IV 06/17/18 04:27 ONETIME ONE Sodium Chloride 10 ml 06/17/18 01:09 06/17/18 01:30 Saline Flush FLUSH 10 ml ASDIRECTED PRN Administration Keep Vein Open Sodium Chloride 2.5 ml 06/17/18 01:09 06/17/18 01:30 Saline Flush FLUSH 2.5 ml ASDIRECTED PRN Administration Keep Vein Open Discontinued Medications Generic Name Dose Route Start Last Admin Trade Name Tony PRN Reason Stop Dose Admin Dicyclomine HCl 20 mg 06/17/18 03:28 Bentyl PO 06/17/18 03:29 ONETIME ONE Hydromorphone HCl 1 mg 06/17/18 03:14 06/17/18 03:20 Dilaudid IVPUSH 06/17/18 03:15 1 mg ONETIME ONE Administration Sodium Chloride 1,000 mls @ 999 mls/hr 06/17/18 01:09 06/17/18 01:29 Normal Saline IV 06/17/18 02:09 999 mls/hr STAT ONE Administration Iopamidol 85 ml 06/17/18 03:15 06/17/18 03:15 Isovue-370 (76%) IVPUSH 06/17/18 03:16 85 ml ONETIME STA Administration Ketorolac Tromethamine 30 mg 06/17/18 01:06/17/18 01:30 Toradol IVPUSH 06/17/18 01:10 30 mg ONETIME ONE Administration Morphine Sulfate 4 mg 06/17/18 01:09 06/17/18 01:30 Morphine IVPUSH 06/17/18 01:10 4 mg ONETIME ONE Administration Ondansetron HCl 4 mg 06/17/18 01:09 06/17/18 01:30 Zofran IVPUSH 06/17/18 01:10 4 mg ONETIME ONE Administration Ondansetron HCl 4 mg 06/17/18 03:15 06/17/18 03:19 Zofran IVPUSH 06/17/18 03:16 4 mg ONETIME ONE Administration Pantoprazole Sodium 80 mg 06/17/18 01:09 06/17/18 01:29 Protonix Iv IVPUSH 06/17/18 01:10 80 mg .BOLUS ONE Administration Departure - Departure Time of Disposition: 03:30 Disposition: Home, Self-Care 01 Condition: Good Clinical Impression: Colic in adult Abdominal pain Qualifiers: Abdominal location: generalized Qualified Code(s): R10.84 - Generalized abdominal pain Vomiting Qualifiers: Vomiting type: unspecified Vomiting Intractability: non-intractable Nausea presence: with nausea Qualified Code(s): R11.2 - Nausea with vomiting, unspecified UTI (urinary tract infection) Qualifiers: Urinary tract infection type: site unspecified Hematuria presence: without hematuria Qualified Code(s): N39.0 - Urinary tract infection, site not specified Constipation Qualifiers: Constipation type: unspecified constipation type Qualified Code(s): K59.00 - Constipation, unspecified - Discharge Information Referrals: PCP,None [Primary Care Provider] - Forms: ED Department Discharge Additional Instructions: The following information is given to patients seen in the emergency department who are being discharged to home. This information is to outline your options for follow-up care. We provide all patients seen in our emergency department with a follow-up referral. The need for follow-up, as well as the timing and circumstances, are variable depending upon the specifics of your emergency department visit. If you don't have a primary care physician on staff, we will provide you with a referral. We always advise you to contact your personal physician following an emergency department visit to inform them of the circumstance of the visit and for follow-up with them and/or the need for any referrals to a consulting specialist. The emergency department will also refer you to a specialist when appropriate. This referral assures that you have the opportunity for followup care with a specialist. All of these measure are taken in an effort to provide you with optimal care, which includes your followup. Under all circumstances we always encourage you to contact your private physician who remains a resource for coordinating your care. When calling for followup care, please make the office aware that this follow-up is from your recent emergency room visit. If for any reason you are refused follow-up, please contact the [facility] emergency department at and ask to speak to the emergency department charge nurse. [facility] Primary care- Internal Medicine and [facility] [address] [place] [id number] [facility] [address] [place] [id number] Please take antibiotics until they're finished and please contact and follow-up with your provider at [facility] to discuss your gynecologic concerns. Please use Bentyl as needed for cramping and pain and use over-the- counter gas preparations such as Mylicon and Gas-X to help eliminate the copious gas that is in your bowel. Use [id number] MiraLAX as the bottle says for the next few days to help gently evacuate stool and assist with gas elimination. Use Zofran you have been given via [facility] for any nausea and vomiting and eating a clear liquid diet for the next 24 hours. Return to ER as needed and as discussed. Contact primary care clinic for further care and reevaluation as well. You have been given Zofran dicyclomine/Bentyl and Cipro antibiotics via [facility] - My Orders Last 24 Hours: My Active Orders 06/17/18 01:09 Abdomen Pelvis w Cont [CT] Stat Sodium Chloride 0.9% [Saline Flush] 10 ml FLUSH ASDIRECTED PRN Sodium Chloride 0.9% [Saline Flush] 2.5 ml FLUSH ASDIRECTED PRN Saline Lock Insert [OM.PC] Stat 06/17/18 01:12 CULTURE URINE [RM] Stat 06/17/18 03:28 Levofloxacin/Dextrose 5%-Water [Levaquin in D5W 500 MG/100 ML] 500 mg Premix Bag 1 bag IV ONETIME 06/17/18 03:29 Sodium Chloride 0.9% [Normal Saline] 1,000 ml IV STAT - Assessment/Plan Last 24 Hours: My Active Orders 06/17/18 01:09 Abdomen Pelvis w Cont [CT] Stat Sodium Chloride 0.9% [Saline Flush] 10 ml FLUSH ASDIRECTED PRN Sodium Chloride 0.9% [Saline Flush] 2.5 ml FLUSH ASDIRECTED PRN Saline Lock Insert [OM.PC] Stat 06/17/18 01:12 CULTURE URINE [RM] Stat 06/17/18 03:28 Levofloxacin/Dextrose 5%-Water [Levaquin in D5W 500 MG/100 ML] 500 mg Premix Bag 1 bag IV ONETIME 06/17/18 03:29 Sodium Chloride 0.9% [Normal Saline] 1,000 ml IV STAT
[2018-06-17 02:42] LABS: CHLORIDE,CL 104 mmol/L (98-107); SODIUM,NA 140 mmol/L (136-145)
[2018-06-17] MEDS ORDERED: HYDROmorphone 1 MG/ML Syringe IVPUSH ONE (03:14)
[2018-06-17] MEDS ORDERED: Iopamidol 755 Mg/ML 100 ML Bottle IVPUSH STA (03:15)
[2018-06-17] MEDS ORDERED: Levofloxacin/Dextrose 5%-Water 500 MG in Premix Bag 1 BAG IV ONE (03:28)
[2018-06-17] MEDS ORDERED: Dicyclomine 10 MG Cap PO ONE (03:28)
[2018-06-17 05:45] VITALS: BP 116/73
--- NOTE | 2018-06-17 14:10 | CT ---
EXAM DATE: 06/17/18 PATIENT'S AGE: 32 Patient: GENEVIEVE GOMEZ Facility: [place], [place] Site . Site : 1985 Study: CT Abdomen/Pelvis W CONT [id number]/18/2018 3:14:16 AM Ordering Physician: Fox Wolf Final Report: INDICATION: Abdominal pain, dysuria TECHNIQUE: CT abdomen and pelvis acquired with IV contrast. 85 cc Isovue 370 COMPARISON: None FINDINGS: Lower chest: Unremarkable. Liver: Unremarkable. Spleen: Unremarkable. Pancreas: Unremarkable. Gallbladder and bile ducts: Unremarkable. Kidneys: Unremarkable. Adrenal glands: Unremarkable. GI tract: Colonic fecal retention. Appendix is normal. Vascular structures: Unremarkable. Lymph nodes: Unremarkable. Miscellaneous: Small fat containing umbilical hernia. No free air or significant free fluid. Pelvic Organs: Unremarkable. Bones: Unremarkable for age. IMPRESSION: Colonic fecal retention, otherwise unremarkable CT of the abdomen and pelvis. Dictated by Dani Lipscomb MD @ 06/17/2018 3:27:04 AM Dictated by: Dani Lipscomb MD @ 06/17/2018 03:27:10 (Electronic Signature) Report Signed by Proxy. [facility] PS[facility]CH[facility] CENTERJane
== END 2018-06-17 05:35 | disposition home or self-care (01) ==
LOC: MW.ED 00:50
DX: N39.0 Urinary tract infection, site not specified (principal); R10.84 Generalized abdominal pain; K59.00 Constipation, unspecified; F17.210 Nicotine dependence, cigarettes, uncomplicated; Z88.8 Allergy status to other drugs, medicaments and biological substances
CPT/HCPCS: 36415; 74177; 80053; 81001; 81025; 82150; 83690; 85025; 86677; 87086; 87088; 87186; 96361; 96365; 96375; 96376; 99284; A9270; C9113; J1170; J1885; J1956; J2270; J2405; J7040; Q9967

== ENCOUNTER 2018-12-08 15:33 | Emergency (ER) | payer BC ==
--- NOTE | 2018-12-08 15:47 | EDM.PDOCBH ---
ED HPI GENERAL MEDICAL PROBLEM - General Chief Complaint: Behavioral/Psych Stated Complaint: ANXIETY Time Seen by Provider: 12/08/18 15:35 Source of Information: Reports: Patient History Limitations: Reports: No Limitations - History of Present Illness INITIAL COMMENTS - FREE TEXT/NARRATIVE: HISTORY AND PHYSICAL: History of present illness: Patient is a 33-year-old female who presents to the emergency room with anxiety attack. She says she has had increased stressors due to work, financial reasons and separation of her daughter at this time. She was supposed to be evaluated at the clinic this morning with Dr. Lee had overslept and missed her appointment. When she called to have this appointment rescheduled she is not able to be seen in appropriate time manner. At her appointment she was supposed to address her pain management with her fibromyalgia. She states she has been taking Robaxin and tramadol without any relief. While at work today she states that she became overwhelmed, tearful and began to have an anxiety attack. It was recommended that she come in for evaluation. Upon my evaluation the patient is tearful, anxious appearing and avoids making eye contact. Patient has a past medical history of GERD, treated hepatitis C, fibromyalgia, anxiety, depression, PTSD, migraines, and drug abuse. Review of systems: As per history of present illness and below otherwise all systems reviewed and negative. Past medical history: As per history of present illness and as reviewed below otherwise noncontributory. Surgical history: As per history of present illness and as reviewed below otherwise noncontributory. Social history: See social history for further information Family history: As per history of present illness and as reviewed below otherwise noncontributory. Physical exam: General: Well-developed and well-nourished 33-year-old female. Alert and oriented. Nontoxic appearing and in no acute distress. HEENT: Atraumatic, normocephalic, pupils equal and reactive bilaterally, negative for conjunctival pallor or scleral icterus, mucous membranes moist, TMs normal bilaterally, throat clear, neck supple, nontender, trachea midline. No drooling or trismus noted. No meningeal signs. No hot potato voice noted. Lungs: Clear to auscultation, breath sounds equal bilaterally, chest nontender. Heart: S1S2, regular rate and rhythm without overt murmur Abdomen: Soft, nondistended, nontender. Negative for masses or hepatosplenomegaly. Negative for costovertebral tenderness. Pelvis: Stable nontender. Genitourinary: Deferred. Rectal: Deferred. Skin: Intact, warm, dry. No lesions or rashes noted. Extremities: Atraumatic, negative for cords or calf pain. Neurovascular unremarkable. Neuro: Awake, alert, oriented. Cranial nerves II through XII unremarkable. Cerebellum unremarkable. Motor and sensory unremarkable throughout. Exam nonfocal. Notes: I did offer to do some routine lab work with her which she declines. She states she has had labs within the last 4-6 months. Initially the plan was to give her some Ativan IM. She states that this does not work for her and request a alternative medication. She does request something for pain. I informed her that we would start with the Valium at this time and reassess once she is able to calm down. Patient has been resting comfortably, eyes have been closed with lights off. Vital signs have been stable. Patient has multiple medications she currently takes for her fibromyalgia and mental health; per Andreea Ventura. She states that Lorenzo and Jesus manage her medications. At this time I do not feel comfortable adjusting or adding any new medications to her regiment. We discussed the need for appropriate follow-up with her primary care or mental health practitioner. Supportive care measures were reviewed and discussed. Voices understanding and is agreeable to plan of care. Denies any further questions or concerns at this time. Diagnostics: CBC, CMP, TSH (declines) Therapeutics: Valium 5mg IV push Prescription: None Impression: Panic Attack Plan: 1. Please call to reschedule your appointment to have your medications adjusted for your fibromyalgia and anxiety. 2. The medication he received today does cause drowsiness so do not drive for the remaining day 3. Return to the ED as needed and as discussed. Definitive disposition and diagnosis as appropriate pending reevaluation and review of above. Duration: Chronic Generalized Pain Score (Numeric/FACES): 8 - Related Data Allergies Allergy/AdvReac Type Severity Reaction Status Date / Time lurasidone [From Latuda] Allergy Hives Verified 12/08/18 15:59 Home Meds: Home Meds Estazolam 4 mg PO DAILY 12/08/18 [History] FLUoxetine HCl [Prozac] 40 mg PO DAILY 12/08/18 [History] Methocarbamol [Robaxin] 500 mg PO TID 12/08/18 [History] Phentermine HCl 37.5 mg PO DAILY 12/08/18 [History] Pregabalin [Lyrica] 150 mg PO BID 12/08/18 [History] traZODone HCl [Trazodone HCl] 200 mg PO BEDTIME PRN 12/08/18 [History] Past Medical History - Past Health History Medical/Surgical History: Denies Medical/Surgical History HEENT History: Reports: Other (See Below) Other HEENT History: wears glasses Cardiovascular History: Reports: None Respiratory History: Reports: None Gastrointestinal History: Reports: GERD, Hepatitis Other Gastrointestinal History: takes OTC medications for heartburn- HX of Hepatitis C- took medication and is now negative Genitourinary History: Reports: None, UTI, 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: Musculoskeletal History: Reports: Fracture, Fibromyalgia Other Musculoskeletal History: hx of fx left wrist Neurological History: Reports: Concussion, Migraines Psychiatric History: Reports: Anxiety, Depression, PTSD Endocrine/Metabolic History: Reports: None Hematologic History: Reports: None Immunologic History: Reports: None Oncologic (Cancer) History: Reports: None Dermatologic History: Reports: None - Infectious Disease History Infectious Disease History: Reports: Hepatitis C - Past Surgical History Head Surgeries/Procedures: Reports: None HEENT Surgical History: Reports: None Cardiovascular Surgical History: Reports: None Respiratory Surgical History: Reports: None GI Surgical History: Reports: None Female Surgical History: Reports: Other (See Below) Other Female Surgeries/Procedures: Laparoscopy Endocrine Surgical History: Reports: None Neurological Surgical History: Reports: None Musculoskeletal Surgical History: Reports: Other (See Below) Other Musculoskeletal Surgeries/Procedures:: hx of I&D of arm abscess Oncologic Surgical History: Reports: None Dermatological Surgical History: Reports: None Social & Family History - Family History Family Medical History: Noncontributory - Caffeine Use Caffeine Use: Reports: Coffee Caffeine Use Comment: 1-2/day ED ROS GENERAL - Review of Systems Review Of Systems: ROS reveals no pertinent complaints other than HPI. ED EXAM, BEHAVIORAL HEALTH - Physical Exam Exam: See Below (See dictation) COURSE, BEHAVIORAL HEALTH COMP - Course Vital Signs: Last Vital Signs Temp 99.0 F 12/08/18 15:40 Pulse 74 12/08/18 16:48 Resp 22 H 12/08/18 16:48 BP 117/66 12/08/18 15:40 Pulse Ox 98 12/08/18 16:48 Orders, Labs, Meds: Medications Discontinued Medications Generic Name Dose Route Start Last Admin Trade Name Tony PRSammie Reason Stop Dose Admin Diazepam 5 mg 12/08/18 16:10 12/08/18 16:38 Valium IVPUSH 12/08/18 16:11 Not Given ONETIME ONE Diazepam 5 mg 12/08/18 16:35 12/08/18 16:36 Valium IVPUSH 12/08/18 16:36 Not Given ONETIME ONE Diazepam 5 mg 12/08/18 16:45 12/08/18 16:48 Valium IVPUSH 12/08/18 16:46 5 mg ONETIME ONE Administration Lorazepam 1 mg 12/08/18 15:54 12/08/18 16:12 Ativan IM 12/08/18 15:55 Not Given ONETIME ONE Departure - Departure Time of Disposition: 17:25 Disposition: Home, Self-Care 01 Clinical Impression: Panic attack, History of fibromyalgia - Discharge Information Instructions: Panic Attack, Wiyn-ee-Dhvy Referrals: PCP,None [Primary Care Provider] - Forms: ED Department Discharge Additional Instructions: The following information is given to patients seen in the emergency department who are being discharged to home. This information is to outline your options for follow-up care. We provide all patients seen in our emergency department with a follow-up referral. The need for follow-up, as well as the timing and circumstances, are variable depending upon the specifics of your emergency department visit. If you don't have a primary care physician on staff, we will provide you with a referral. We always advise you to contact your personal physician following an emergency department visit to inform them of the circumstance of the visit and for follow-up with them and/or the need for any referrals to a consulting specialist. The emergency department will also refer you to a specialist when appropriate. This referral assures that you have the opportunity for follow-up care with a specialist. All of these measure are taken in an effort to provide you with optimal care, which includes your follow-up. Under all circumstances we always encourage you to contact your private physician who remains a resource for coordinating your care. When calling for follow-up care, please make the office aware that this follow-up is from your recent emergency room visit. If for any reason you are refused follow-up, please contact the [facility] Emergency Department at and asked to speak to the emergency department charge nurse. [facility] [address] [place] [id number] [address] 1. Please call to reschedule your appointment to have your medications adjusted for your fibromyalgia and anxiety. 2. The medication he received today does cause drowsiness so do not drive for the remaining day 3. Return to the ED as needed and as discussed.
[2018-12-08] MEDS ORDERED: LORazepam 2 MG/ML SDV IM ONE (15:54)
[2018-12-08] MEDS ORDERED: diazePAM 5 MG/ML MDV IVPUSH ONE (16:45)
[2018-12-08 18:22] VITALS: BP 97/44
== END 2018-12-08 18:22 | disposition home or self-care (01) ==
LOC: MW.ED 15:33
DX: F41.0 Panic disorder [episodic paroxysmal anxiety] (principal); N39.0 Urinary tract infection, site not specified; M79.7 Fibromyalgia; Z88.8 Allergy status to other drugs, medicaments and biological substances; Z79.899 Other long term (current) drug therapy
CPT/HCPCS: 81001; 87086; 96374; 99283; A9270; 87088; 87186

== ENCOUNTER 2019-01-01 19:21 | Emergency (ER) | payer BC ==
[2019-01-01] MEDS ORDERED: Albuterol/Ipratropium 3.0-0.5 MG/3 ML Neb Soln NEB ONE (19:30)
--- NOTE | 2019-01-01 19:42 | EDM.PDOC ---
ED HPI GENERAL MEDICAL PROBLEM - General Chief Complaint: Respiratory Problem Stated Complaint: COUGH & FEVER Time Seen by Provider: 01/01/19 19:24 Source of Information: Reports: Patient History Limitations: Reports: No Limitations - History of Present Illness INITIAL COMMENTS - FREE TEXT/NARRATIVE: HISTORY AND PHYSICAL: History of present illness: Patient is a 33-year-old female who presents to the ED today with concern of fever and cough 4 days. Patient states she has taken Sudafed [id number] without relief of symptoms. Patient states she also has had a headache and some body aches since yesterday. Patient denies chest pain, shortness of breath. Denies neck stiffness. Denies nausea, vomiting, abdominal pain, diarrhea, constipation, or dysuria. Has not noted any blood in urine or stool. Patient has decrease in appetite but has been eating and drinking appropriately. Patient has a history of fibromyalgia and depression but denies any other health history. Review of systems: As per history of present illness and below otherwise all systems reviewed and negative. Past medical history: As per history of present illness and as reviewed below otherwise noncontributory. Surgical history: As per history of present illness and as reviewed below otherwise noncontributory. Social history: See social history for further information Family history: As per history of present illness and as reviewed below otherwise noncontributory. Physical exam: General: Patient is alert, oriented, and in no acute distress. She is sitting comfortably on exam table. Non toxic. Non focal. HEENT: Atraumatic, normocephalic, pupils equal and reactive bilaterally, negative for conjunctival pallor or scleral icterus, mucous membranes moist, Right TM has clear fluid behind the TM, left TM is normal, throat clear, neck supple, nontender, trachea midline. No drooling or trismus noted. No meningeal signs. No hot potato voice noted. Clear bilateral nasal drainage. Lungs: Clear to auscultation, breath sounds equal bilaterally, chest nontender. Heart: S1S2, regular rate and rhythm without overt murmur Abdomen: Soft, nondistended, nontender. Negative for masses or hepatosplenomegaly. Negative for costovertebral tenderness. Pelvis: Stable nontender. Genitourinary: Deferred. Rectal: Deferred. Skin: Intact, warm, dry. No lesions or rashes noted. Extremities: Atraumatic, negative for cords or calf pain. Neurovascular unremarkable. Neuro: Awake, alert, oriented. Cranial nerves II through XII unremarkable. Cerebellum unremarkable. Motor and sensory unremarkable throughout. Exam nonfocal. Notes: CXR shows no acute cardiopulmonary process. These findings were discussed with patient. Supportive care measures were reviewed and discussed. Voices understanding and is agreeable to plan of care. Denies any further questions or concerns at this time. Diagnostics: influenza, strep, cxr Therapeutics: duoneb Prescription: Proair, Medrol dose pack Impression: Bronchitis Plan: 1. Take medication as prescribed. 2. You can alternating ibuprofen and Tylenol as directed for pain and discomfort. 3. Follow up with primary care provider as discussed. 4. Return to ED as needed and as discussed. Definitive disposition and diagnosis as appropriate pending reevaluation and review of above. - Related Data Allergies Allergy/AdvReac Type Severity Reaction Status Date / Time lurasidone [From Latuda] Allergy Hives Verified 01/01/19 19:22 Home Meds: Home Meds Estazolam 4 mg PO DAILY 12/08/18 [History] FLUoxetine HCl [Prozac] 40 mg PO DAILY 12/08/18 [History] Methocarbamol [Robaxin] 500 mg PO TID 12/08/18 [History] Phentermine HCl 37.5 mg PO DAILY 12/08/18 [History] Pregabalin [Lyrica] 150 mg PO BID 12/08/18 [History] traZODone HCl [Trazodone HCl] 200 mg PO BEDTIME PRN 12/08/18 [History] Past Medical History - Past Health History Medical/Surgical History: Denies Medical/Surgical History HEENT History: Reports: Other (See Below) Other HEENT History: wears glasses Cardiovascular History: Reports: None Respiratory History: Reports: None Gastrointestinal History: Reports: GERD, Hepatitis Other Gastrointestinal History: takes OTC medications for heartburn- HX of Hepatitis C- took medication and is now negative Genitourinary History: Reports: None, UTI, 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: Musculoskeletal History: Reports: Fracture, Fibromyalgia Other Musculoskeletal History: hx of fx left wrist Neurological History: Reports: Concussion, Migraines Psychiatric History: Reports: Anxiety, Depression, PTSD Endocrine/Metabolic History: Reports: None Hematologic History: Reports: None Immunologic History: Reports: None Oncologic (Cancer) History: Reports: None Dermatologic History: Reports: None - Infectious Disease History Infectious Disease History: Reports: Hepatitis C - Past Surgical History Head Surgeries/Procedures: Reports: None HEENT Surgical History: Reports: None Cardiovascular Surgical History: Reports: None Respiratory Surgical History: Reports: None GI Surgical History: Reports: None Female Surgical History: Reports: Other (See Below) Other Female Surgeries/Procedures: Laparoscopy Endocrine Surgical History: Reports: None Neurological Surgical History: Reports: None Musculoskeletal Surgical History: Reports: Other (See Below) Other Musculoskeletal Surgeries/Procedures:: hx of I&D of arm abscess Oncologic Surgical History: Reports: None Dermatological Surgical History: Reports: None Social & Family History - Family History Family Medical History: Noncontributory Cardiac: Reports: CAD Oncologic: Reports: Other (See Below) Other Oncologic Family History: CA - Tobacco Use Smoking Status *Q: Current Every Day Smoker Years of Tobacco use: 16 Packs/Tins Daily: 1 - Caffeine Use Caffeine Use: Reports: Coffee Caffeine Use Comment: 1-2/day - Recreational Drug Use Recreational Drug Use: No ED ROS GENERAL - Review of Systems Review Of Systems: ROS reveals no pertinent complaints other than HPI. ED EXAM, GENERAL - Physical Exam Exam: See Below (see dictation) Course - Vital Signs Last Recorded V/S: Last Vital Signs Temp 36.4 C 01/01/19 19:25 Pulse 75 01/01/19 19:25 Resp 18 01/01/19 19:25 BP 98/54 L 01/01/19 19:25 Pulse Ox 95 01/01/19 19:39 - Orders/Labs/Meds Orders: Active Orders 24 hr Category Date Time Status RT Aerosol Therapy [RC] ASDIRECTED Care 01/01/19 19:30 Active CULTURE STREP A CONFIRMATION [] Stat Lab 01/01/19 19:30 Results STREP SCRN A RAPID W CULT CONF [] Stat Lab 01/01/19 19:30 Results Meds: Medications Discontinued Medications Generic Name Dose Route Start Last Admin Trade Name Freq PRN Reason Stop Dose Admin Albuterol/Ipratropium 3 ml 01/01/19 19:30 01/01/19 19:39 Duoneb 3.0-0.5 Mg/3 Ml NEB 01/01/19 19:31 3 ml ONETIME ONE Administration Departure - Departure Time of Disposition: 20:06 Disposition: Home, Self-Care 01 Clinical Impression: Bronchitis - Discharge Information Instructions: Acute Bronchitis, Adult Referrals: PCP,None [Primary Care Provider] - Forms: ED Department Discharge Additional Instructions: The following information is given to patients seen in the emergency department who are being discharged to home. This information is to outline your options for follow-up care. We provide all patients seen in our emergency department with a follow-up referral. The need for follow-up, as well as the timing and circumstances, are variable depending upon the specifics of your emergency department visit. If you don't have a primary care physician on staff, we will provide you with a referral. We always advise you to contact your personal physician following an emergency department visit to inform them of the circumstance of the visit and for follow-up with them and/or the need for any referrals to a consulting specialist. The emergency department will also refer you to a specialist when appropriate. This referral assures that you have the opportunity for follow-up care with a specialist. All of these measure are taken in an effort to provide you with optimal care, which includes your follow-up. Under all circumstances we always encourage you to contact your private physician who remains a resource for coordinating your care. When calling for follow-up care, please make the office aware that this follow-up is from your recent emergency room visit. If for any reason you are refused follow-up, please contact the [facility] Emergency Department at and asked to speak to the emergency department charge nurse. [facility] [address] [place] [id number] [address] [address] 1. Take medication as prescribed. 2. You can alternating ibuprofen and Tylenol as directed for pain and discomfort. 3. Follow up with primary care provider as discussed. 4. Return to ED as needed and as discussed. - My Orders Last 24 Hours: My Active Orders 01/01/19 19:30 RT Aerosol Therapy [RC] ASDIRECTED CULTURE STREP A CONFIRMATION [RM] Stat STREP SCRN A RAPID W CULT CONF [RM] Stat - Assessment/Plan Last 24 Hours: My Active Orders 01/01/19 19:30 RT Aerosol Therapy [RC] ASDIRECTED CULTURE STREP A CONFIRMATION [RM] Stat STREP SCRN A RAPID W CULT CONF [RM] Stat
--- NOTE | 2019-01-01 20:01 | CR ---
INDICATION: Cough TECHNIQUE: Chest radiograph 2 views COMPARISON: None FINDINGS: Mediastinum: The mediastinum is normal in appearance. The heart silhouette is normal in size and morphology. Lung: Both lungs are unremarkable in appearance. No sign of pleural effusion seen. No pneumothorax is identified. Musculoskeletal: Unremarkable for age. IMPRESSION: 1. No acute cardiopulmonary disease is seen. Dictated by: Braulio Souza MD @ 01/01/2019 19:58:47 (Electronically Signed)
[2019-01-01 20:22] VITALS: BP 101/52
== END 2019-01-01 20:10 | disposition home or self-care (01) ==
LOC: MW.ED 19:21
DX: J40 Bronchitis, not specified as acute or chronic (principal); F41.9 Anxiety disorder, unspecified; F32.9 Major depressive disorder, single episode, unspecified; F17.210 Nicotine dependence, cigarettes, uncomplicated; Z79.899 Other long term (current) drug therapy
CPT/HCPCS: 71046; 71046-26; 87081; 87804; 87880-QW; 94640; 99284-25; J7620-GY

== ENCOUNTER 2019-03-29 15:55 | Emergency (ER) | payer SELFPAY ==
--- NOTE | 2019-03-29 16:11 | EDM.PDOC ---
ED HPI GENERAL MEDICAL PROBLEM - General Stated Complaint: PAIN Time Seen by Provider: 03/29/19 16:11 Source of Information: Reports: Patient History Limitations: Reports: No Limitations - History of Present Illness INITIAL COMMENTS - FREE TEXT/NARRATIVE: HISTORY AND PHYSICAL: History of present illness: Patient is a 33-year-old female who presents to the emergency room with complaints of right knee pain. She states she was out at the [employer] yesterday and had "overdone it" and developed pain in the right knee. Patient reports she does have fibromyalgia and does have chronic pain which she takes several prescribed medications for. She states that prescribed pain medications have not alleviated her discomfort. She denies any new injury, trauma or falls. She is ambulatory although weightbearing does cause pain. Patient denies any fever, chills, headache, change in vision, syncope or near syncope. Denies any chest pain, back pain, shortness of breath or cough. Denies any abdominal pain, nausea, vomiting, diarrhea, constipation or dysuria. Has not noted any blood in urine or stool. Patient has been eating and drinking appropriately. Review of systems: As per history of present illness and below otherwise all systems reviewed and negative. Past medical history: As per history of present illness and as reviewed below otherwise noncontributory. Surgical history: As per history of present illness and as reviewed below otherwise noncontributory. Social history: See social history for further information Family history: As per history of present illness and as reviewed below otherwise noncontributory. Physical exam: General: Well-developed and well-nourished 33-year-old female. Alert and oriented. Nontoxic appearing and in no acute distress. HEENT: Atraumatic, normocephalic, pupils equal and reactive bilaterally, negative for conjunctival pallor or scleral icterus, mucous membranes moist, trachea midline. No drooling or trismus noted. No meningeal signs. No hot potato voice noted. Lungs: Clear to auscultation, breath sounds equal bilaterally, chest nontender. Heart: S1S2, regular rate and rhythm without overt murmur Abdomen: Soft, nondistended, nontender. Skin: Intact, warm, dry. No lesions or rashes noted. Extremities: Atraumatic, moves all extremities per self without difficulty or deficits, negative for cords or calf pain. Pain with touch to the knee, no knee instability noted. Strong pedal pulses. Cap refill less than 3 seconds. Neurovascular unremarkable. Neuro: Awake, alert, oriented. Cranial nerves II through XII unremarkable. Cerebellum unremarkable. Motor and sensory unremarkable throughout. Exam nonfocal. Notes: X-ray shows no acute findings. I will give her one tablet of Bridgewater while here. Crutches and knee immobilizer given with education. Encouraged her to follow up with her primary caregiver and the orthopedic provider for her chronic fibromyalgia pain and the new right knee pain. Supportive care measures were reviewed and discussed. Voices understanding and is agreeable to plan of care. Denies any further questions or concerns at this time. Diagnostics: Knee x-ray Therapeutics: Crutches, knee sleeve, Bridgewater Prescription: None Impression: Right knee pain History of fibromyalgia Plan: 1. Rest, ice, elevate the affected extremity. Please wear the splint as directed. 2. Tylenol and/or Ibuprofen as needed for pain management. Take your prescribed pain medications that you already have available to you as directed. 3. Follow up with the Orthopedic provider as we discussed. Return to the ED as needed and as discussed. Definitive disposition and diagnosis as appropriate pending reevaluation and review of above. Right Knee Pain Score (Numeric/FACES): 8 - Related Data Allergies Allergy/AdvReac Type Severity Reaction Status Date / Time lurasidone [From Latuda] Allergy Hives Verified 01/01/19 19:22 Home Meds: Home Meds Estazolam 2 mg PO DAILY 12/08/18 [History] FLUoxetine HCl [Prozac] 40 mg PO DAILY 12/08/18 [History] Methocarbamol [Robaxin] 500 mg PO TID 12/08/18 [History] Phentermine HCl 37.5 mg PO DAILY 12/08/18 [History] Pregabalin [Lyrica] 150 mg PO BID 12/08/18 [History] traZODone HCl [Trazodone HCl] 200 mg PO BEDTIME PRN 12/08/18 [History] traMADol [Ultram] 50 mg PO QID 03/29/19 [History] Past Medical History - Past Health History Medical/Surgical History: Denies Medical/Surgical History HEENT History: Reports: Other (See Below) Other HEENT History: wears glasses Cardiovascular History: Reports: None Respiratory History: Reports: None Gastrointestinal History: Reports: GERD, Hepatitis Other Gastrointestinal History: takes OTC medications for heartburn- HX of Hepatitis C- took medication and is now negative Genitourinary History: Reports: None, UTI, 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: Musculoskeletal History: Reports: Fracture, Fibromyalgia Other Musculoskeletal History: hx of fx left wrist Neurological History: Reports: Concussion, Migraines Psychiatric History: Reports: Anxiety, Depression, PTSD Endocrine/Metabolic History: Reports: None Hematologic History: Reports: None Immunologic History: Reports: None Oncologic (Cancer) History: Reports: None Dermatologic History: Reports: None - Infectious Disease History Infectious Disease History: Reports: Hepatitis C - Past Surgical History Head Surgeries/Procedures: Reports: None HEENT Surgical History: Reports: None Cardiovascular Surgical History: Reports: None Respiratory Surgical History: Reports: None GI Surgical History: Reports: None Female Surgical History: Reports: Other (See Below) Other Female Surgeries/Procedures: Laparoscopy Endocrine Surgical History: Reports: None Neurological Surgical History: Reports: None Musculoskeletal Surgical History: Reports: Other (See Below) Other Musculoskeletal Surgeries/Procedures:: hx of I&D of arm abscess Oncologic Surgical History: Reports: None Dermatological Surgical History: Reports: None Social & Family History - Family History Family Medical History: Noncontributory Cardiac: Reports: CAD Oncologic: Reports: Other (See Below) Other Oncologic Family History: CA - Caffeine Use Caffeine Use: Reports: Coffee Caffeine Use Comment: 1-2/day ED ROS GENERAL - Review of Systems Review Of Systems: ROS reveals no pertinent complaints other than HPI. ED EXAM, GENERAL - Physical Exam Exam: See Below (See dictation) Course - Vital Signs Last Recorded V/S: Last Vital Signs Temp 97.6 F 03/29/19 16:12 Pulse 67 03/29/19 16:12 Resp 22 H 03/29/19 16:12 BP 104/63 03/29/19 16:12 Pulse Ox 99 03/29/19 16:12 - Orders/Labs/Meds Orders: Active Orders 24 hr Category Date Time Status DME for Discharge [COMM] Stat Oth 03/29/19 16:29 Ordered Meds: Medications Discontinued Medications Generic Name Dose Route Start Last Admin Trade Name Freq PRN Reason Stop Dose Admin Hydrocodone Bitart/Acetaminophen 1 tab 03/29/19 16:29 03/29/19 16:36 Bridgewater 325-5 Mg PO 03/29/19 16:30 1 tab ONETIME ONE Administration Departure - Departure Time of Disposition: 17:11 Disposition: Home, Self-Care 01 Clinical Impression: History of fibromyalgia Right knee pain Qualifiers: Chronicity: acute Qualified Code(s): M25.561 - Pain in right knee - Discharge Information Instructions: Knee Pain, Adult, [id number] Additional Instructions: The following information is given to patients seen in the emergency department who are being discharged to home. This information is to outline your options for follow-up care. We provide all patients seen in our emergency department with a follow-up referral. The need for follow-up, as well as the timing and circumstances, are variable depending upon the specifics of your emergency department visit. If you don't have a primary care physician on staff, we will provide you with a referral. We always advise you to contact your personal physician following an emergency department visit to inform them of the circumstance of the visit and for follow-up with them and/or the need for any referrals to a consulting specialist. The emergency department will also refer you to a specialist when appropriate. This referral assures that you have the opportunity for follow-up care with a specialist. All of these measure are taken in an effort to provide you with optimal care, which includes your follow-up. Under all circumstances we always encourage you to contact your private physician who remains a resource for coordinating your care. When calling for follow-up care, please make the office aware that this follow-up is from your recent emergency room visit. If for any reason you are refused follow-up, please contact the Emergency Department at and asked to speak to the emergency department charge nurse. Primary Care [address] [place] [phone] [address] Specialty Care - [facility] Professional Building [address] [facility], [address] [place] [address] 1. Rest, ice, elevate the affected extremity. Please wear the splint as directed. 2. Tylenol and/or Ibuprofen as needed for pain management. Take your prescribed pain medications that you already have available to you as directed. 3. Follow up with the Orthopedic provider as we discussed. Return to the ED as needed and as discussed. - My Orders Last 24 Hours: My Active Orders 03/29/19 16:29 DME for Discharge [COMM] Stat - Assessment/Plan Last 24 Hours: My Active Orders 03/29/19 16:29 DME for Discharge [COMM] Stat
[2019-03-29] MEDS ORDERED: Acetaminophen/HYDROcodone 325-5 MG Tab PO ONE (16:29)
--- NOTE | 2019-03-29 17:05 | CR ---
Indication: Knee pain Technique: Right knee 3 views Comparison: None Findings: Bones: Alignment is normal. No fractures or bone lesions. Joint spaces: Joint spaces are well maintained. No degenerative changes. No sign of joint effusion. Soft tissues: Unremarkable. Impression: No findings to explain pain. Dictated by Sukhjinder Crockett MD @ Mar 29 2019 5:02PM Signed by Dr. Sukhjinder Crockett @ Mar 29 2019 5:03PM
[2019-03-29] MEDS ORDERED: Ketorolac 60 MG/2 ML SDV IM ONE (17:21)
[2019-03-29 17:26] VITALS: BP 110/70
== END 2019-03-29 17:37 | disposition home or self-care (01) ==
LOC: MW.ED 15:55
DX: M25.561 Pain in right knee (principal); M79.7 Fibromyalgia; F41.9 Anxiety disorder, unspecified; F32.9 Major depressive disorder, single episode, unspecified; Z79.899 Other long term (current) drug therapy; Z88.8 Allergy status to other drugs, medicaments and biological substances
CPT/HCPCS: 73562; 96372; 99283; A9270; J1885

== ENCOUNTER 2019-07-13 13:46 | Emergency (ER) | payer BC, OTHER, SELFPAY ==
[2019-07-13] MEDS ORDERED: Sodium Chloride 0.9% 1,000 ML IV ONE (14:10)
[2019-07-13] MEDS ORDERED: Metoclopramide 10 MG/2 ML SDV IV ONE (14:10)
[2019-07-13] MEDS ORDERED: Ketorolac 30 MG/ML SDV IVPUSH ONE (14:10)
[2019-07-13] MEDS ORDERED: Ondansetron 4 MG/2 ML SDV IVPUSH ONE (14:10)
[2019-07-13] MEDS ORDERED: diphenhydrAMINE 50 MG/ML SDV IVPUSH ONE (14:11)
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
[2019-07-13 16:14] VITALS: BP 117/62; PULSE 89
== END 2019-07-13 16:10 | disposition home or self-care (01) ==
LOC: MW.ED 13:46
DX: J02.9 Acute pharyngitis, unspecified (principal); R45.851 Suicidal ideations; R51 Headache; F32.9 Major depressive disorder, single episode, unspecified; F41.9 Anxiety disorder, unspecified; F17.210 Nicotine dependence, cigarettes, uncomplicated; Z88.8 Allergy status to other drugs, medicaments and biological substances; Z79.899 Other long term (current) drug therapy
CPT/HCPCS: 87081; 87804; 87880; 96361; 96374; 96375; 99284; J1200; J1885; J2405; J2765; J7040

== ENCOUNTER 2019-07-21 16:48 | Emergency (ER) | payer MEDICAID ==
--- NOTE | 2019-07-21 17:19 | EDM.PDOC ---
ED HPI GENERAL MEDICAL PROBLEM - General Chief Complaint: Respiratory Problem Stated Complaint: COUGH, PINK EYE Time Seen by Provider: 07/21/19 17:17 Source of Information: Reports: Patient - History of Present Illness INITIAL COMMENTS - FREE TEXT/NARRATIVE: HISTORY AND PHYSICAL: History of present illness: []Patient presents with sinus pain and pressure intermittent cough and conjunctivitis no fever nausea vomiting chills sweats 2 weeks of symptoms she has failed [id number] symptomatic therapy Review of systems: As per history of present illness and below otherwise all systems reviewed and negative. Past medical history: As per history of present illness and as reviewed below otherwise noncontributory. Surgical history: As per history of present illness and as reviewed below otherwise noncontributory. Social history: No reported history of drug or alcohol abuse. Family history: As per history of present illness and as reviewed below otherwise noncontributory. Physical exam: HEENT: Atraumatic, normocephalic, pupils reactive, negative for conjunctival pallor or scleral icterus, mucous membranes moist, throat clear, neck supple, nontender, trachea midline.Tender maxillary and supraorbital sinuses Lungs: Clear to auscultation, breath sounds equal bilaterally, chest nontender. Heart: S1S2, regular, negative for clicks, rubs, or JVD. Abdomen: Soft, nondistended, nontender. Negative for masses or hepatosplenomegaly. Negative for costovertebral tenderness. Pelvis: Stable nontender. Genitourinary: Deferred. Rectal: Deferred. Extremities: Atraumatic, negative for cords or calf pain. Neurovascular unremarkable. Neuro: Awake, alert, oriented. Cranial nerves II through XII unremarkable. Cerebellum unremarkable. Motor and sensory unremarkable throughout. Exam nonfocal. Diagnostics: [Clinical ] Therapeutics: [Levaquin Gent ophthalmic ] Impression: [ sinusitis Conjunctivitis ] Definitive disposition and diagnosis as appropriate pending reevaluation and review of above. Head Pain Score (Numeric/FACES): 8 - Related Data Allergies Allergy/AdvReac Type Severity Reaction Status Date / Time lurasidone [From Latuda] Allergy Hives Verified 07/21/19 17:07 Home Meds: Home Meds Citalopram Hydrobromide [Celexa] 20 mg PO DAILY 07/21/19 [History] Past Medical History - Past Health History Medical/Surgical History: Denies Medical/Surgical History HEENT History: Reports: Other (See Below) Other HEENT History: wears glasses Cardiovascular History: Reports: None Respiratory History: Reports: None Gastrointestinal History: Reports: GERD, Hepatitis Other Gastrointestinal History: takes OTC medications for heartburn- HX of Hepatitis C- took medication and is now negative Genitourinary History: Reports: None, UTI, 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: Musculoskeletal History: Reports: Fracture, Fibromyalgia Other Musculoskeletal History: hx of fx left wrist Neurological History: Reports: Concussion, Migraines Psychiatric History: Reports: Anxiety, Depression, PTSD Endocrine/Metabolic History: Reports: None Hematologic History: Reports: None Immunologic History: Reports: None Oncologic (Cancer) History: Reports: None Dermatologic History: Reports: None - Infectious Disease History Infectious Disease History: Reports: None - Past Surgical History Head Surgeries/Procedures: Reports: None HEENT Surgical History: Reports: None Cardiovascular Surgical History: Reports: None Respiratory Surgical History: Reports: None GI Surgical History: Reports: None Female Surgical History: Reports: Other (See Below) Other Female Surgeries/Procedures: Laparoscopy Endocrine Surgical History: Reports: None Neurological Surgical History: Reports: None Musculoskeletal Surgical History: Reports: Other (See Below) Other Musculoskeletal Surgeries/Procedures:: hx of I&D of arm abscess Oncologic Surgical History: Reports: None Dermatological Surgical History: Reports: None Social & Family History - Family History Family Medical History: Noncontributory Cardiac: Reports: CAD Oncologic: Reports: Other (See Below) Other Oncologic Family History: CA - Tobacco Use Smoking Status *Q: Never Smoker - Caffeine Use Caffeine Use: Reports: Coffee Caffeine Use Comment: 1-2/day - Recreational Drug Use Recreational Drug Use: No ED ROS GENERAL - Review of Systems Review Of Systems: See Below ED EXAM, GENERAL - Physical Exam Exam: See Below Course - Vital Signs Last Recorded V/S: Last Vital Signs Temp 97.3 F 07/21/19 17:04 Pulse 70 07/21/19 17:04 Resp 16 07/21/19 17:04 BP 121/66 07/21/19 17:04 Pulse Ox 96 07/21/19 17:04 Departure - Departure Time of Disposition: 17:18 Disposition: Home, Self-Care 01 Condition: Good Clinical Impression: Conjunctivitis, Sinusitis - Discharge Information Referrals: PCP,None [Primary Care Provider] - Additional Instructions: The following information is given to patients seen in the emergency department who are being discharged to home. This information is to outline your options for follow-up care. We provide all patients seen in our emergency department with a follow-up referral. The need for follow-up, as well as the timing and circumstances, are variable depending upon the specifics of your emergency department visit. If you don't have a primary care physician on staff, we will provide you with a referral. We always advise you to contact your personal physician following an emergency department visit to inform them of the circumstance of the visit and for follow-up with them and/or the need for any referrals to a consulting specialist. The emergency department will also refer you to a specialist when appropriate. This referral assures that you have the opportunity for follow-up care with a specialist. All of these measure are taken in an effort to provide you with optimal care, which includes your follow-up. Under all circumstances we always encourage you to contact your private physician who remains a resource for coordinating your care. When calling for follow-up care, please make the office aware that this follow-up is from your recent emergency room visit. If for any reason you are refused follow-up, please contact the [facility] emergency department at and asked to speak to the emergency department charge nurse.
[2019-07-21 18:00] VITALS: BP 109/68; PULSE 81
== END 2019-07-21 18:00 | disposition home or self-care (01) ==
LOC: MW.ED 16:48
DX: J32.9 Chronic sinusitis, unspecified (principal); H10.9 Unspecified conjunctivitis; F41.9 Anxiety disorder, unspecified; F32.9 Major depressive disorder, single episode, unspecified; Z88.8 Allergy status to other drugs, medicaments and biological substances; Z79.899 Other long term (current) drug therapy
CPT/HCPCS: 99282

== ENCOUNTER 2019-09-13 18:38 | Observation (INO) | payer OTHER ==
[2019-09-13] MEDS ORDERED: Sodium Chloride 0.9% 1,000 ML IV ONE (19:40)
[2019-09-13] MEDS ORDERED: Clindamycin Phosphate in D5W 900 MG in Premix Bag 1 BAG IV ONE ×2 (19:42)
[2019-09-13] MEDS ORDERED: Ketorolac 30 MG/ML SDV ONE (19:57)
[2019-09-13] MEDS ORDERED: Ketorolac 30 MG/ML SDV IVPUSH ONE (19:57)
[2019-09-13] MEDS: Dexamethasone 10 MG/ML SDV IVPUSH ONE (20:03)
[2019-09-13 20:24] LABS: BLOOD UREA NITROGEN,BUN 12 mg/dL (7.0-18.0); CARBON DIOXIDE,CO2 27.2 mmol/L (21.0-32.0); CHLORIDE,CL 102 mmol/L (98-107); GLUCOSE RANDOM 95 mg/dL (74-106); POTASSIUM,K 4.2 mmol/L (3.5-5.1); SODIUM,NA 139 mmol/L (136-145)
--- NOTE | 2019-09-13 20:36 | EDM.PDOC ---
ED HPI GENERAL MEDICAL PROBLEM - General Chief Complaint: ENT Problem Stated Complaint: SORE THROAT Time Seen by Provider: 09/13/19 19:31 Source of Information: Reports: Patient History Limitations: Reports: No Limitations - History of Present Illness INITIAL COMMENTS - FREE TEXT/NARRATIVE: HISTORY AND PHYSICAL: History of present illness: Patient is a 34-year-old female who presents to the ED today with concern of sore throat over the past 2 days. Patient states starting yesterday and today she has not been able to eat or drink anything. Patient states she has not able to drink any water or any fluids either. Patient denies any other symptoms or concerns. Patient denies fever, chills, chest pain, shortness of breath, or cough. Denies headache, neck stiff ness, change in vision, syncope, or near syncope. Denies nausea, vomiting, abdominal pain, diarrhea, constipation, or dysuria. Has not noted any blood in urine or stool. Review of systems: As per history of present illness and below otherwise all systems reviewed and negative. Past medical history: As per history of present illness and as reviewed below otherwise noncontributory. Surgical history: As per history of present illness and as reviewed below otherwise noncontributory. Social history: See social history for further information Family history: As per history of present illness and as reviewed below otherwise noncontributory. Physical exam: General: Patient is alert, oriented, and in no acute distress. Patient sitting comfortably on exam table. HEENT: Atraumatic, normocephalic, pupils equal and reactive bilaterally, negative for conjunctival pallor or scleral icterus, mucous membranes moist, TMs normal bilaterally, throat is erythematous and the right side of the tonsil is moderately enlarged with the uvula shifted to the left suggestive of peritonsillar abscess, neck supple, nontender, trachea midline. No drooling but positive trismus noted. No meningeal signs. No hot potato voice noted. Lungs: Clear to auscultation, breath sounds equal bilaterally, chest nontender. Heart: S1S2, regular rate and rhythm without overt murmur Abdomen: Soft, nondistended, nontender. Negative for masses or hepatosplenomegaly. Negative for costovertebral tenderness. Pelvis: Stable nontender. Genitourinary: Deferred. Rectal: Deferred. Skin: Intact, warm, dry. No lesions or rashes noted. Extremities: Atraumatic, negative for cords or calf pain. Neurovascular unremarkable. Neuro: Awake, alert, oriented. Cranial nerves II through XII unremarkable. Cerebellum unremarkable. Motor and sensory unremarkable throughout. Exam nonfocal. Notes: Dr. Lou, ENT industrial automation engineer for [facility], consulted on patient and thoroughly discussed patient case. Dr. Lou states that the area of probable abscess is too small for him to drain and he would recommend admission to the hospitalist (here) for IV antibiotics and that ENT specialist is not necessary at this time as there is nothing to drain/area is too small. He recommends admission to hospitalist for IV Unasyn 3g every 6 hours and IV Decadron 7mg every 8 hours and anticipates this to resolve with antibiotics without further treatment necessary from ENT. Dr. Hopper, hospitalist on-call, made aware of this consult and accepting of admission to observation Voices understanding and is agreeable to plan of care. Denies any further questions or concerns at this time. Diagnostics: CBC, CMP, UA, serum hCG, lactate, blood cultures 2, soft tissue neck CT Therapeutics: Clindamycin, Toradol, Decadron, NS, Unasyn, Morphine Impression: Peritonsillar abscess Plan: Admit to observation to Dr. Hopper. Definitive disposition and diagnosis as appropriate pending reevaluation and review of above. - Related Data Allergies Allergy/AdvReac Type Severity Reaction Status Date / Time lurasidone [From Latuda] Allergy Hives Verified 09/13/19 19:15 Home Meds: Home Meds . 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: Musculoskeletal History: Reports: Fracture, Fibromyalgia Other Musculoskeletal History: hx of fx left wrist Neurological History: Reports: Concussion, Migraines Psychiatric History: Reports: Anxiety, Depression, PTSD Endocrine/Metabolic History: Reports: None Hematologic History: Reports: None Immunologic History: Reports: None Oncologic (Cancer) History: Reports: None Dermatologic History: Reports: None - Infectious Disease History Infectious Disease History: Reports: Chicken Pox - Past Surgical History Head Surgeries/Procedures: Reports: None HEENT Surgical History: Reports: None Cardiovascular Surgical History: Reports: None Respiratory Surgical History: Reports: None GI Surgical History: Reports: None Female Surgical History: Reports: Other (See Below) Other Female Surgeries/Procedures: Laparoscopy Endocrine Surgical History: Reports: None Neurological Surgical History: Reports: None Musculoskeletal Surgical History: Reports: Other (See Below) Other Musculoskeletal Surgeries/Procedures:: hx of I&D of arm abscess Oncologic Surgical History: Reports: None Dermatological Surgical History: Reports: None Social & Family History - Family History Family Medical History: Noncontributory Cardiac: Reports: CAD Oncologic: Reports: Other (See Below) Other Oncologic Family History: CA - Tobacco Use Smoking Status *Q: Current Every Day Smoker Years of Tobacco use: 17 Packs/Tins Daily: 1 - Caffeine Use Caffeine Use: Reports: None Caffeine Use Comment: 1-2/day - Recreational Drug Use Recreational Drug Use: No ED ROS GENERAL - Review of Systems Review Of Systems: Comprehensive ROS is negative, except as noted in HPI. ED EXAM, GENERAL - Physical Exam Exam: See Below (see dictation) Course - Vital Signs Last Recorded V/S: Last Vital Signs Temp 97.4 F 09/13/19 21:15 Pulse 84 09/13/19 21:15 Resp 18 09/13/19 21:15 BP 99/52 L 09/13/19 21:15 Pulse Ox 100 09/13/19 21:15 - Orders/Labs/Meds Orders: Active Orders 24 hr Category Date Time Status Admission Status [Patient Status] [ADT] Stat ADT 09/13/19 21:35 Ordered CULTURE BLOOD [BC] Stat Lab 09/13/19 19:52 Received CULTURE BLOOD [BC] Stat Lab 09/13/19 20:10 Received UA RFX HAL AND CULT IF INDIC [URIN] Stat Lab 09/13/19 19:40 Ordered Ampicillin/Sulbactam Na [Unasyn] 3 gm Med 09/13/19 21:33 Ordered Sodium Chloride 0.9% [Normal Saline] 100 ml IV ONETIME Morphine Med 09/13/19 21:36 Once 2 mg IVPUSH ONETIME ONE Blood Culture x2 Reflex Set [OM.PC] Stat Oth 09/13/19 19:44 Ordered Medication Orders Ampicillin Sodium/Sulbactam (Sodium 3 gm/ Sodium Chloride) 100 mls @ 200 mls/ hr IV ONETIME ONE Stop: 09/13/19 22:02 Labs: Laboratory Tests 09/13/19 09/13/19 09/13/19 Range/Units 19:52 19:52 19:52 WBC 11.20 H (4.0-11.0) K/uL RBC 4.76 (4.30-5.90) M/uL Hgb 15.2 (12.0-16.0) g/dL Hct 44.1 (36.0-46.0) % MCV 92.6 (80.0-98.0) fL MCH 31.9 (27.0-32.0) pg MCHC 34.5 (31.0-37.0) g/dL RDW Std Deviation 42.0 (28.0-62.0) fl RDW Coeff of Ana 12 (11.0-15.0) % Plt Count 270 (150-400) K/uL MPV 9.40 (7.40-12.00) fL Neut % (Auto) 80.7 H (48.0-80.0) % Lymph % (Auto) 11.9 L (16.0-40.0) % [place] % (Auto) 6.3 (0.0-15.0) % Eos % (Auto) 0.9 (0.0-7.0) % Baso % (Auto) 0.2 (0.0-1.5) % Neut # (Auto) 9.0 H (1.4-5.7) K/uL Lymph # (Auto) 1.3 (0.6-2.4) K/uL [place] # (Auto) 0.7 (0.0-0.8) K/uL Eos # (Auto) 0.1 (0.0-0.7) K/uL Baso # (Auto) 0.0 (0.0-0.1) K/uL Nucleated RBC % 0.0 /100WBC Nucleated RBCs # 0 K/uL Lactate (0.20-2.00) mmol/L Sodium 139 (136-145) mmol/L Potassium 4.2 (3.5-5.1) mmol/L Chloride 102 (98-107) mmol/L Carbon Dioxide 27.2 (21.0-32.0) mmol/L BUN 12 (7.0-18.0) mg/dL Creatinine 0.6 (0.6-1.0) mg/dL Est Cr Clr Drug Dosing 116.64 mL/min Estimated GFR (MDRD) > 60.0 ml/min Glucose 95 (74-106) mg/dL Calcium 9.0 (8.5-10.1) mg/dL Total Bilirubin 0.5 (0.2-1.0) mg/dL AST 15 (15-37) IU/L ALT 19 (14-63) IU/L Alkaline Phosphatase 52 (46-116) U/L Total Protein 8.0 (6.4-8.2) g/dL Albumin 3.9 (3.4-5.0) g/dL Globulin 4.1 H (2.6-4.0) g/dL Albumin/Globulin Ratio 1.0 (0.9-1.6) HCG, Qual NEGATIVE (NEG) 09/13/19 Range/Units 19:52 WBC (4.0-11.0) K/uL RBC (4.30-5.90) M/uL Hgb (12.0-16.0) g/dL Hct (36.0-46.0) % MCV (80.0-98.0) fL MCH (27.0-32.0) pg MCHC (31.0-37.0) g/dL RDW Std Deviation (28.0-62.0) fl RDW Coeff of Ana (11.0-15.0) % Plt Count (150-400) K/uL MPV (7.40-12.00) fL Neut % (Auto) (48.0-80.0) % Lymph % (Auto) (16.0-40.0) % [place] % (Auto) (0.0-15.0) % Eos % (Auto) (0.0-7.0) % Baso % (Auto) (0.0-1.5) % Neut # (Auto) (1.4-5.7) K/uL Lymph # (Auto) (0.6-2.4) K/uL [place] # (Auto) (0.0-0.8) K/uL Eos # (Auto) (0.0-0.7) K/uL Baso # (Auto) (0.0-0.1) K/uL Nucleated RBC % /100WBC Nucleated RBCs # K/uL Lactate 0.9 (0.20-2.00) mmol/L Sodium (136-145) mmol/L Potassium (3.5-5.1) mmol/L Chloride (98-107) mmol/L Carbon Dioxide (21.0-32.0) mmol/L BUN (7.0-18.0) mg/dL Creatinine (0.6-1.0) mg/dL Est Cr Clr Drug Dosing mL/min Estimated GFR (MDRD) ml/min Glucose (74-106) mg/dL Calcium (8.5-10.1) mg/dL Total Bilirubin (0.2-1.0) mg/dL AST (15-37) IU/L ALT (14-63) IU/L Alkaline Phosphatase (46-116) U/L Total Protein (6.4-8.2) g/dL Albumin (3.4-5.0) g/dL Globulin (2.6-4.0) g/dL Albumin/Globulin Ratio (0.9-1.6) HCG, Qual (NEG) Meds: Medications Generic Name Dose Route Start Last Admin Trade Name Freq PRN Reason Stop Dose Admin Ampicillin Sodium/Sulbactam 100 mls @ 200 mls/hr 09/13/19 21:33 Sodium 3 gm/ Sodium Chloride IV 09/13/19 22:02 ONETIME ONE Discontinued Medications Generic Name Dose Route Start Last Admin Trade Name Freq PRN Reason Stop Dose Admin Dexamethasone 10 mg 09/13/19 19:43 09/13/19 20:03 Dexamethasone IVPUSH 09/13/19 19:44 10 mg ONETIME ONE Administration Sodium Chloride 1,000 mls @ 999 mls/hr 09/13/19 19:40 09/13/19 20:03 Normal Saline IV 09/13/19 20:40 999 mls/hr BOLUS ONE Administration Clindamycin Phosphate 900 mg/ 50 mls @ 100 mls/hr 09/13/19 19:42 09/13/19 20: 03 Premix IV 09/13/19 20:11 100 mls/hr ONETIME ONE Administration Iopamidol 100 ml 09/13/19 20:37 09/13/19 20:53 Isovue-370 (76%) IVPUSH 09/13/19 20:38 100 ml ONETIME ONE Administration Ketorolac Tromethamine 30 mg 09/13/19 19:57 09/13/19 20:03 Toradol IVPUSH 09/13/19 19:58 30 mg ONETIME ONE Administration Ketorolac Tromethamine Confirm 09/13/19 19:57 Toradol Administered 09/13/19 19:58 Dose 30 mg .ROUTE .STK-MED ONE Departure - Departure Time of Disposition: 21:39 Disposition: Refer to Observation Clinical Impression: Peritonsillar abscess - Discharge Information Referrals: Annamaria Lee DO [Primary Care Provider] - Forms: ED Department Discharge Sepsis Event Note - Evaluation Sepsis Screening Result: No Definite Risk - Focused Exam Vital Signs: Vital Signs Temp Pulse Resp BP Pulse Ox 09/13/19 21:15 97.4 F 84 18 99/52 L 100 09/13/19 19:16 98.2 F 92 16 111/60 97 Date Exam was Performed: 09/13/19 Time Exam was Performed: 21:36 - My Orders Last 24 Hours: My Active Orders 09/13/19 19:40 UA RFX HAL AND CULT IF INDIC [URIN] Stat 09/13/19 19:44 Blood Culture x2 Reflex Set [OM.PC] Stat 09/13/19 19:52 CULTURE BLOOD [BC] Stat 09/13/19 20:10 CULTURE BLOOD [BC] Stat 09/13/19 21:33 Ampicillin/Sulbactam Na [Unasyn] 3 gm Sodium Chloride 0.9% [Normal Saline] 100 ml IV ONETIME 09/13/19 21:35 Admission Status [Patient Status] [ADT] Stat 09/13/19 21:36 Morphine 2 mg IVPUSH ONETIME ONE - Assessment/Plan Last 24 Hours: My Active Orders 09/13/19 19:40 UA RFX HAL AND CULT IF INDIC [URIN] Stat 09/13/19 19:44 Blood Culture x2 Reflex Set [OM.PC] Stat 09/13/19 19:52 CULTURE BLOOD [BC] Stat 09/13/19 20:10 CULTURE BLOOD [BC] Stat 09/13/19 21:33 Ampicillin/Sulbactam Na [Unasyn] 3 gm Sodium Chloride 0.9% [Normal Saline] 100 ml IV ONETIME 09/13/19 21:35 Admission Status [Patient Status] [ADT] Stat 09/13/19 21:36 Morphine 2 mg IVPUSH ONETIME ONE
[2019-09-13] MEDS ORDERED: Iopamidol 755 Mg/ML 100 ML Bottle IVPUSH ONE (20:37)
--- NOTE | 2019-09-13 21:16 | CT ---
INDICATION: Right tonsillar swelling. COMPARISON: None available TECHNIQUE: CT examination of the neck is performed using spiral technique during the uneventful intravenous administration of 100 cc of Isovue 370.. 3 mm thick axial sections were made along with coronal and sagittal sections. Please note that all CT scans at this facility use dose modulation, iterative reconstruction, and/or weight-based dosing when appropriate to reduce radiation dose to as low as reasonably achievable. FINDINGS: There is moderate fullness of the right pharyngeal tonsil with a poorly defined probable abscess in the anterior superior portion measuring 1.6 x 1.3 x 1.6 centimeters. There is mild swelling of the left pharyngeal tonsil with no sign of any abscess. The hypopharyngeal airway is mildly narrowed by the swollen tonsils, but there is no suggestion of impending airway compromise. Incidental note is made of fullness of the lymphoid tissue at the base the tongue, nonspecific. The rest of the airway structures are normal in appearance. There is mild right level 2 lymphadenopathy with the largest lymph node measuring 1.3 centimeters in diameter, probably reactive. There is mild prominence of left level 2 lymph nodes, with short axis diameter of 10 millimeters or less, consistent with reactive nodes. There is no sign of additional cervical mass or adenopathy on today`s study. The salivary glands are normal in appearance. The visualized posterior fossa, mastoids, skull base, orbits, and paranasal sinuses are normal in appearance. The great vessels are unremarkable. The thyroid gland is normal in appearance. The visualized upper chest is clear. The visualized upper mediastinum is normal in appearance. The osseous structures are unremarkable. IMPRESSION: Moderate fullness of the right pharyngeal tonsil with a poorly defined probable abscess in the anterior superior portion measuring 1.6 x 1.3 x 1.6 centimeters. Mild right superior jugular chain lymphadenopathy (level 2), and mild prominence of left superior jugular chain lymph nodes. These are probably reactive. Mild enlargement of the left pharyngeal tonsil, probably reactive. No findings to suggest impending hypopharyngeal airway compromise. Please note that all CT scans at this facility use dose modulation, iterative reconstruction, and/or weight-based dosing when appropriate to reduce radiation dose to as low as reasonably achievable. Dictated by Sumit Lane MD @ Sep 13 2019 9:07PM Signed by Dr. Sumit Lane @ Sep 13 2019 9:14PM
[2019-09-13] MEDS ORDERED: Ampicillin/Sulbactam Na 3 GM in Sodium Chloride 0.9% 100 ML IV ONE ×2 (21:33→22:15)
[2019-09-13] MEDS ORDERED: Morphine 2 MG/ML Syringe IVPUSH ONE (21:36)
[2019-09-13] MEDS ORDERED: Albuterol/Ipratropium 3.0-0.5 MG/3 ML Neb Soln NEB PRN (22:49)
[2019-09-13] MEDS: Sodium Chloride 0.9% 1,000 ML IV SCH (23:11)
[2019-09-13] MEDS: Ampicillin/Sulbactam Na 3 GM in Sodium Chloride 0.9% 100 ML IV SCH (23:11)
[2019-09-13] MEDS: Dexamethasone 10 MG/ML SDV IVPUSH SCH (23:21)
[2019-09-14] MEDS: Ketorolac 30 MG/ML SDV IV PRN ×3 (03:05→17:29)
[2019-09-14] MEDS ORDERED: Ampicillin/Sulbactam Na 3 GM in Sodium Chloride 0.9% 100 ML IV SCH (04:00)
[2019-09-14] MEDS: Ampicillin/Sulbactam Na 3 GM in Sodium Chloride 0.9% 100 ML IV SCH ×4 (04:47→23:20)
[2019-09-14 06:32] LABS: BLOOD UREA NITROGEN,BUN 12 mg/dL (7.0-18.0); CARBON DIOXIDE,CO2 24.7 mmol/L (21.0-32.0); CHLORIDE,CL 106 mmol/L (98-107); GLUCOSE RANDOM 130 mg/dL (74-106); POTASSIUM,K 4.4 mmol/L (3.5-5.1); SODIUM,NA 139 mmol/L (136-145)
[2019-09-14] MEDS: Dexamethasone 10 MG/ML SDV IVPUSH SCH ×3 (07:40→23:17)
[2019-09-14] MEDS: Sodium Chloride 0.9% 1,000 ML IV SCH ×2 (08:47→16:18)
[2019-09-14] MEDS ORDERED: Morphine 2 MG/ML Syringe IVPUSH PRN (11:15)
[2019-09-14] MEDS: Morphine 2 MG/ML Syringe IVPUSH PRN ×2 (11:25→18:55)
--- NOTE | 2019-09-14 11:50 | PCM.HP.2 ---
H&P History of Present Illness - General Date of Service: 09/13/19 (Late note entry due to patient care) Admit Problem/Dx: Admission Diagnosis/Problem Admission Diagnosis/Problem Peritonsillar abscess Source of Information: Patient - History of Present Illness Initial Comments - Free Text/Narative: Patient is a 34 y/o F with PMH of Hepatitis C, s/p treatment, h/o IV drug abuse comes in with c/o sore throat and feeling fatigued for last 3-4 days. Patient states her sore throat has been getting worse and she has been unable to eat or driink much due to pain. In the ER patient was found to have positive strep throat, CT neck showed right tonsillar abscess, measuring 1.6x1.3x1.6. ENT at [place] was consulyed, recommnded to start IV antibiotics and no need for drainiage as of now. No airway compromise was noted on CT. Patient is being admitted for management of tonsillar abscess secondary to strep throat. Onset of Symptoms: Reports: Gradual Duration of Symptoms: Reports: Day(s): Location: Reports: Neck Quality: Reports: Pressure, Throbbing Severity: Moderate Throat Pain Score (Numeric/FACES): 7 - Related Data Allergies/Adverse Reactions: Allergies Allergy/AdvReac Type Severity Reaction Status Date / Time lurasidone [From Latuda] Allergy Hives Verified 09/13/19 22:53 Home Medications: Home Meds Amitriptyline [Elavil] 50 mg PO BEDTIME 09/14/19 [History] OLANZapine [Olanzapine] 2.5 mg PO BEDTIME 09/14/19 [History] Phentermine HCl 37.5 mg PO DAILY 09/14/19 [History] hydrOXYzine HCL [hydrOXYzine] 25 mg PO BID 09/14/19 [History] valACYclovir HCl [Valtrex] 500 mg PO DAILY 09/14/19 [History] Past Medical History - Past Health History Medical/Surgical History: Denies Medical/Surgical History HEENT History: Reports: Other (See Below) Other HEENT History: wears glasses Cardiovascular History: Reports: None Respiratory History: Reports: None Gastrointestinal History: Reports: Hepatitis Other Gastrointestinal History: HX of Hepatitis C- took medication and is now negative Genitourinary History: Reports: None [employer] History: Reports: Musculoskeletal History: Reports: Fracture, Fibromyalgia Other Musculoskeletal History: hx of fx left wrist Neurological History: Reports: Concussion Psychiatric History: Reports: Anxiety, Depression, PTSD Endocrine/Metabolic History: Reports: None Hematologic History: Reports: None Immunologic History: Reports: None Oncologic (Cancer) History: Reports: None Dermatologic History: Reports: None - Infectious Disease History Infectious Disease History: Reports: Chicken Pox, Hepatitis C, Herpes, Human Papilloma Virus (HPV), Influenza - Past Surgical History Head Surgeries/Procedures: Reports: None HEENT Surgical History: Reports: None Cardiovascular Surgical History: Reports: None Respiratory Surgical History: Reports: None GI Surgical History: Reports: None Female Surgical History: Reports: Other (See Below) Other Female Surgeries/Procedures: Laparoscopy Endocrine Surgical History: Reports: None Neurological Surgical History: Reports: None Musculoskeletal Surgical History: Reports: Other (See Below) Other Musculoskeletal Surgeries/Procedures:: hx of I&D of arm abscess Oncologic Surgical History: Reports: None Dermatological Surgical History: Reports: None Social & Family History - Family History Family Medical History: Noncontributory Cardiac: Reports: CAD Oncologic: Reports: Other (See Below) Other Oncologic Family History: CA - Tobacco Use Smoking Status *Q: Current Every Day Smoker Years of Tobacco use: 17 Packs/Tins Daily: 0.5 Used Tobacco, but Quit: No - Caffeine Use Caffeine Use: Reports: Coffee Caffeine Use Comment: 1-2/day - Recreational Drug Use Recreational Drug Use: No H&P Review of Systems - Review of Systems: Review Of Systems: See Below General: Reports: Fever, Chills, Malaise, Decreased Appetite. Denies: Weakness , Fatigue, Night Sweats HEENT: Reports: Dysphasia, Sore Throat. Denies: Ear Pain, Eye Pain, Headaches, Visual Changes Pulmonary: Denies: Shortness of Breath, Wheezing, Pleuritic Chest Pain Cardiovascular: Denies: Chest Pain, Palpitations, Dyspnea on Exertion Gastrointestinal: Denies: Abdominal Pain, Anorexia, Black Stool Genitourinary: Denies: Dysuria, Frequency, Burning, Pain Musculoskeletal: Denies: Neck Pain, Shoulder Pain, Arm Pain Skin: Denies: Cyanosis, Jaundice, Mottled Psychiatric: Denies: Confusion, Depression, Mood Lability Neurological: Denies: Confusion, Dizziness, Headache, Numbness Hematologic/Lymphatic: Denies: Anemia, Easy Bleeding, Easy Bruising Exam - Exam Exam: See Below - Vital Signs Vital Signs: Last Vital Signs Temp 35.8 C 09/14/19 08:00 Pulse 61 09/14/19 08:00 Resp 17 09/14/19 08:00 BP 97/54 L 09/14/19 08:00 Pulse Ox 96 09/14/19 08:00 Weight: 68.039 kg - Exam General: No: Alert, Oriented HEENT: No: Conjunctiva Clear Neck: Supple, Trachea Midline Lungs: Clear to Auscultation, Normal Respiratory Effort Cardiovascular: Regular Rate, Regular Rhythm, Normal S1, Normal S2 GI/Abdominal Exam: Normal Bowel Sounds, Soft, Non-Tender Peripheral Pulses: 3+: Dorsalis Pedis (L), Dorsalis Pedis (R) Psychiatric: Alert, Normal Affect, Normal Mood - Patient Data Lab Results Last 24 hrs: Laboratory Results - last 24 hr 09/13/19 09/13/19 09/13/19 Range/Units 19:52 19:52 19:52 WBC 11.20 H (4.0-11.0) K/uL RBC 4.76 (4.30-5.90) M/uL Hgb 15.2 (12.0-16.0) g/dL Hct 44.1 (36.0-46.0) % MCV 92.6 (80.0-98.0) fL MCH 31.9 (27.0-32.0) pg MCHC 34.5 (31.0-37.0) g/dL RDW Std Deviation 42.0 (28.0-62.0) fl RDW Coeff of Ana 12 (11.0-15.0) % Plt Count 270 (150-400) K/uL MPV 9.40 (7.40-12.00) fL Neut % (Auto) 80.7 H (48.0-80.0) % Lymph % (Auto) 11.9 L (16.0-40.0) % [place] % (Auto) 6.3 (0.0-15.0) % Eos % (Auto) 0.9 (0.0-7.0) % Baso % (Auto) 0.2 (0.0-1.5) % Neut # (Auto) 9.0 H (1.4-5.7) K/uL Lymph # (Auto) 1.3 (0.6-2.4) K/uL [place] # (Auto) 0.7 (0.0-0.8) K/uL Eos # (Auto) 0.1 (0.0-0.7) K/uL Baso # (Auto) 0.0 (0.0-0.1) K/uL Nucleated RBC % 0.0 /100WBC Nucleated RBCs # 0 K/uL Lactate (0.20-2.00) mmol/L Sodium 139 (136-145) mmol/L Potassium 4.2 (3.5-5.1) mmol/L Chloride 102 (98-107) mmol/L Carbon Dioxide 27.2 (21.0-32.0) mmol/L BUN 12 (7.0-18.0) mg/dL Creatinine 0.6 (0.6-1.0) mg/dL Est Cr Clr Drug Dosing 116.64 mL/min Estimated GFR (MDRD) > 60.0 ml/min Glucose 95 (74-106) mg/dL Calcium 9.0 (8.5-10.1) mg/dL Total Bilirubin 0.5 (0.2-1.0) mg/dL AST 15 (15-37) IU/L ALT 19 (14-63) IU/L Alkaline Phosphatase 52 (46-116) U/L Total Protein 8.0 (6.4-8.2) g/dL Albumin 3.9 (3.4-5.0) g/dL Globulin 4.1 H (2.6-4.0) g/dL Albumin/Globulin Ratio 1.0 (0.9-1.6) HCG, Qual NEGATIVE (NEG) Urine Color Urine Appearance Urine pH (5.0-8.0) Ur Specific [place] (1.001-1.035) Urine Protein (NEGATIVE) mg/dL Urine Glucose (UA) (NEGATIVE) mg/dL Urine Ketones (NEGATIVE) mg/dL Urine Occult Blood (NEGATIVE) Urine Nitrite (NEGATIVE) Urine Bilirubin (NEGATIVE) Urine Urobilinogen (<2.0) EU/dL Ur Leukocyte Esterase (NEGATIVE) 09/13/19 09/14/19 09/14/19 Range/Units 19:52 06:00 06:00 WBC 7.90 (4.0-11.0) K/uL RBC 4.25 L (4.30-5.90) M/uL Hgb 13.4 (12.0-16.0) g/dL Hct 38.9 (36.0-46.0) % MCV 91.5 (80.0-98.0) fL MCH 31.5 (27.0-32.0) pg MCHC 34.4 (31.0-37.0) g/dL RDW Std Deviation 41.0 (28.0-62.0) fl RDW Coeff of Ana 12 (11.0-15.0) % Plt Count 243 (150-400) K/uL MPV 9.10 (7.40-12.00) fL Neut % (Auto) 91.4 H (48.0-80.0) % Lymph % (Auto) 8.0 L (16.0-40.0) % [place] % (Auto) 0.6 (0.0-15.0) % Eos % (Auto) 0.0 (0.0-7.0) % Baso % (Auto) 0.0 (0.0-1.5) % Neut # (Auto) 7.2 H (1.4-5.7) K/uL Lymph # (Auto) 0.6 (0.6-2.4) K/uL [place] # (Auto) 0.1 (0.0-0.8) K/uL Eos # (Auto) 0.0 (0.0-0.7) K/uL Baso # (Auto) 0.0 (0.0-0.1) K/uL Nucleated RBC % 0.0 /100WBC Nucleated RBCs # 0 K/uL Lactate 0.9 (0.20-2.00) mmol/L Sodium 139 (136-145) mmol/L Potassium 4.4 (3.5-5.1) mmol/L Chloride 106 (98-107) mmol/L Carbon Dioxide 24.7 (21.0-32.0) mmol/L BUN 12 (7.0-18.0) mg/dL Creatinine 0.6 (0.6-1.0) mg/dL Est Cr Clr Drug Dosing 116.64 mL/min Estimated GFR (MDRD) > 60.0 ml/min Glucose 130 H (74-106) mg/dL Calcium 8.1 L (8.5-10.1) mg/dL Total Bilirubin (0.2-1.0) mg/dL AST (15-37) IU/L ALT (14-63) IU/L Alkaline Phosphatase (46-116) U/L Total Protein (6.4-8.2) g/dL Albumin (3.4-5.0) g/dL Globulin (2.6-4.0) g/dL Albumin/Globulin Ratio (0.9-1.6) HCG, Qual (NEG) Urine Color Urine Appearance Urine pH (5.0-8.0) Ur Specific [place] (1.001-1.035) Urine Protein (NEGATIVE) mg/dL Urine Glucose (UA) (NEGATIVE) mg/dL Urine Ketones (NEGATIVE) mg/dL Urine Occult Blood (NEGATIVE) Urine Nitrite (NEGATIVE) Urine Bilirubin (NEGATIVE) Urine Urobilinogen (<2.0) EU/dL Ur Leukocyte Esterase (NEGATIVE) 09/14/19 Range/Units 08:56 WBC (4.0-11.0) K/uL RBC (4.30-5.90) M/uL Hgb (12.0-16.0) g/dL Hct (36.0-46.0) % MCV (80.0-98.0) fL MCH (27.0-32.0) pg MCHC (31.0-37.0) g/dL RDW Std Deviation (28.0-62.0) fl RDW Coeff of Ana (11.0-15.0) % Plt Count (150-400) K/uL MPV (7.40-12.00) fL Neut % (Auto) (48.0-80.0) % Lymph % (Auto) (16.0-40.0) % [place] % (Auto) (0.0-15.0) % Eos % (Auto) (0.0-7.0) % Baso % (Auto) (0.0-1.5) % Neut # (Auto) (1.4-5.7) K/uL Lymph # (Auto) (0.6-2.4) K/uL [place] # (Auto) (0.0-0.8) K/uL Eos # (Auto) (0.0-0.7) K/uL Baso # (Auto) (0.0-0.1) K/uL Nucleated RBC % /100WBC Nucleated RBCs # K/uL Lactate (0.20-2.00) mmol/L Sodium (136-145) mmol/L Potassium (3.5-5.1) mmol/L Chloride (98-107) mmol/L Carbon Dioxide (21.0-32.0) mmol/L BUN (7.0-18.0) mg/dL Creatinine (0.6-1.0) mg/dL Est Cr Clr Drug Dosing mL/min Estimated GFR (MDRD) ml/min Glucose (74-106) mg/dL Calcium (8.5-10.1) mg/dL Total Bilirubin (0.2-1.0) mg/dL AST (15-37) IU/L ALT (14-63) IU/L Alkaline Phosphatase (46-116) U/L Total Protein (6.4-8.2) g/dL Albumin (3.4-5.0) g/dL Globulin (2.6-4.0) g/dL Albumin/Globulin Ratio (0.9-1.6) HCG, Qual (NEG) Urine Color YELLOW Urine Appearance CLEAR Urine pH 6.0 (5.0-8.0) Ur Specific [place] 1.025 (1.001-1.035) Urine Protein NEGATIVE (NEGATIVE) mg/dL Urine Glucose (UA) NEGATIVE (NEGATIVE) mg/dL Urine Ketones TRACE H (NEGATIVE) mg/dL Urine Occult Blood NEGATIVE (NEGATIVE) Urine Nitrite NEGATIVE (NEGATIVE) Urine Bilirubin NEGATIVE (NEGATIVE) Urine Urobilinogen 0.2 (<2.0) EU/dL Ur Leukocyte Esterase NEGATIVE (NEGATIVE) Result Diagrams: 09/14/19 06:00 09/14/19 06:00 Robbie Results Last 24 hrs: Microbiology 09/13/19 19:08 Group A Streptococcus Rapid Screen - Final Throat Positive Strep A Screen Sepsis Event Note - Evaluation Sepsis Screening Result: No Definite Risk - Focused Exam Vital Signs: Vital Signs Temp Pulse Resp BP Pulse Ox 09/14/19 08:00 35.8 C 61 17 97/54 L 96 09/14/19 04:44 35.9 C 62 16 95/51 L 95 Date Exam was Performed: 09/14/19 Time Exam was Performed: 21:26 - Problem List (1) Peritonsillar abscess SNOMED Code(s): 20080470 ICD Code: J36 - PERITONSILLAR ABSCESS Status: Acute Current Visit: Yes (2) H/O drug abuse SNOMED Code(s): 246603594 ICD Code: F19.11 - OTHER PSYCHOACTIVE SUBSTANCE ABUSE, IN REMISSION Status : Acute Current Visit: Yes (3) H/O hepatitis SNOMED Code(s): 883506481 ICD Code: Z86.19 - PERSONAL HISTORY OF OTHER INFECTIOUS AND PARASITIC DISEASES Status: Acute Current Visit: Yes Problem List Initiated/Reviewed/Updated: Yes Orders Last 24hrs: Active Orders 24 hr Category Date Time Status Admission Status [Patient Status] [ADT] Stat ADT 09/13/19 21:35 Active Oxygen Therapy [RC] PRN Care 09/13/19 22:49 Active RT Aerosol Therapy [RC] ASDIRECTED Care 09/13/19 22:53 Active VTE/DVT Education [RC] PER UNIT ROUTINE Care 09/13/19 22:49 Active Vital Signs [RC] Q4H Care 09/13/19 22:49 Active Clear Liquid Diet [DIET] Diet 09/14/19 Lunch Active CULTURE BLOOD [BC] Stat Lab 09/13/19 19:52 Received CULTURE BLOOD [BC] Stat Lab 09/13/19 20:10 Received Albuterol/Ipratropium [DuoNeb 3.0-0.5 MG/3 ML] Med 09/13/19 22:49 Active 3 ml NEB Q4HRRT PRN Ampicillin/Sulbactam Na [Unasyn] 3 gm Med 09/13/19 22:57 Active Sodium Chloride 0.9% [Normal Saline] 100 ml IV Q6H Ketorolac [Toradol] Med 09/13/19 22:49 Active 30 mg IV Q6H PRN Morphine Med 09/14/19 11:15 Active 1 mg IVPUSH Q6H PRN Sodium Chloride 0.9% [Normal Saline] 1,000 ml Med 09/13/19 23:00 Active IV ASDIRECTED dexAMETHasone [Dexamethasone] Med 09/13/19 23:00 Active 7 mg IVPUSH Q8H Blood Culture x2 Reflex Set [OM.PC] Stat Oth 09/13/19 19:44 Ordered Resuscitation Status Routine Resus Stat 09/13/19 22:49 Ordered Medication Orders Albuterol/Ipratropium (Duoneb 3.0-0.5 Mg/3 Ml) 3 ml NEB Q4HRRT PRN PRN Reason: Shortness Of Breath/wheezing Dexamethasone (Dexamethasone) 7 mg IVPUSH Q8H [facility] Last Admin: 09/14/19 07:40 Dose: 7 mg Admin: 09/13/19 23:21 Dose: 7 mg Sodium Chloride (Normal Saline) 1,000 mls @ 125 mls/hr IV ASDIRECTED [facility] Last Admin: 09/14/19 08:47 Dose: 125 mls/hr Infusion: 09/14/19 07:11 Dose: 125 mls/hr Admin: 09/13/19 23:11 Dose: 125 mls/hr Ampicillin Sodium/Sulbactam (Sodium 3 gm/ Sodium Chloride) 100 mls @ 200 mls/ hr IV Q6H [facility] Last Admin: 09/14/19 10:30 Dose: 200 mls/hr Infusion: 09/14/19 05:17 Dose: 200 mls/hr Admin: 09/14/19 04:47 Dose: 200 mls/hr Infusion: 09/13/19 23:41 Dose: 200 mls/hr Admin: 09/13/19 23:11 Dose: 200 mls/hr Ketorolac Tromethamine (Toradol) 30 mg IV Q6H PRN PRN Reason: Pain (moderate 4-6) Last Admin: 09/14/19 10:35 Dose: 30 mg Admin: 09/14/19 03:05 Dose: 30 mg Morphine Sulfate (Morphine) 1 mg IVPUSH Q6H PRN PRN Reason: PAIN Last Admin: 09/14/19 11:25 Dose: 1 mg Assessment/Plan Comment:: A/P: 34 y/o F comes in for evaluation of sore throat, was found to have Tonsillar abscess of CT neck, strep throat positive Per ENT surgeon at [place], doesn't need to be drained start IV Unasyn, and IV Decadron start IV Toradol and IV morphine for pain Advance diet as tolerated Monitor vitals closely Monitor and replete electrolytes as needed DVT ppx with SCD
[2019-09-14] MEDS: Dexamethasone 10 MG/ML SDV IVPUSH ONE (16:29)
[2019-09-14] MEDS ORDERED: Sodium Chloride 0.9% 500 ML IV SCH (19:30)
--- NOTE | 2019-09-14 21:26 | PCM.PN ---
- General Info Date of Service: 09/14/19 Admission Dx/Problem (Free Text): Admission Diagnosis/Problem Admission Diagnosis/Problem Peritonsillar abscess Functional Status: Reports: Urinating. Denies: New Symptoms - Review of Systems General: Reports: Fatigue, Chills. Denies: Fever, Weakness HEENT: Reports: Dysphasia, Sore Throat. Denies: Ear Pain, Eye Pain Pulmonary: Denies: Shortness of Breath, Pleuritic Chest Pain Cardiovascular: Denies: Chest Pain, Palpitations, Dyspnea on Exertion Gastrointestinal: Denies: Abdominal Pain, Constipation, Decreased Appetite, Diarrhea Genitourinary: Denies: Dysuria, Frequency, Burning Musculoskeletal: Denies: Neck Pain, Shoulder Pain, Arm Pain Skin: Denies: Cyanosis, Jaundice, Mottled Neurological: Reports: Headache. Denies: Confusion, Dizziness - Patient Data Vitals - Most Recent: Last Vital Signs Temp 36.6 C 09/14/19 15:58 Pulse 80 09/14/19 15:58 Resp 16 09/14/19 15:58 BP 90/44 L 09/14/19 15:58 Pulse Ox 97 09/14/19 15:58 Weight - Most Recent: 68.039 kg I&O - Last 24 Hours: Intake & Output 09/14/19 09/14/19 09/14/19 06:59 14:59 22:59 Intake Total 817 1632 Output Total 400 Balance 817 1232 Lab Results Last 24 Hours: Laboratory Results - last 24 hr 09/14/19 09/14/19 09/14/19 Range/Units 06:00 06:00 08:56 WBC 7.90 (4.0-11.0) K/uL RBC 4.25 L (4.30-5.90) M/uL Hgb 13.4 (12.0-16.0) g/dL Hct 38.9 (36.0-46.0) % MCV 91.5 (80.0-98.0) fL MCH 31.5 (27.0-32.0) pg MCHC 34.4 (31.0-37.0) g/dL RDW Std Deviation 41.0 (28.0-62.0) fl RDW Coeff of Ana 12 (11.0-15.0) % Plt Count 243 (150-400) K/uL MPV 9.10 (7.40-12.00) fL Neut % (Auto) 91.4 H (48.0-80.0) % Lymph % (Auto) 8.0 L (16.0-40.0) % [place] % (Auto) 0.6 (0.0-15.0) % Eos % (Auto) 0.0 (0.0-7.0) % Baso % (Auto) 0.0 (0.0-1.5) % Neut # (Auto) 7.2 H (1.4-5.7) K/uL Lymph # (Auto) 0.6 (0.6-2.4) K/uL [place] # (Auto) 0.1 (0.0-0.8) K/uL Eos # (Auto) 0.0 (0.0-0.7) K/uL Baso # (Auto) 0.0 (0.0-0.1) K/uL Nucleated RBC % 0.0 /100WBC Nucleated RBCs # 0 K/uL Sodium 139 (136-145) mmol/L Potassium 4.4 (3.5-5.1) mmol/L Chloride 106 (98-107) mmol/L Carbon Dioxide 24.7 (21.0-32.0) mmol/L BUN 12 (7.0-18.0) mg/dL Creatinine 0.6 (0.6-1.0) mg/dL Est Cr Clr Drug Dosing 116.64 mL/min Estimated GFR (MDRD) > 60.0 ml/min Glucose 130 H (74-106) mg/dL Calcium 8.1 L (8.5-10.1) mg/dL Urine Color YELLOW Urine Appearance CLEAR Urine pH 6.0 (5.0-8.0) Ur Specific [place] 1.025 (1.001-1.035) Urine Protein NEGATIVE (NEGATIVE) mg/dL Urine Glucose (UA) NEGATIVE (NEGATIVE) mg/dL Urine Ketones TRACE H (NEGATIVE) mg/dL Urine Occult Blood NEGATIVE (NEGATIVE) Urine Nitrite NEGATIVE (NEGATIVE) Urine Bilirubin NEGATIVE (NEGATIVE) Urine Urobilinogen 0.2 (<2.0) EU/dL Ur Leukocyte Esterase NEGATIVE (NEGATIVE) Robbie Results Last 24 Hours: Microbiology 09/13/19 20:10 Aerobic Blood Culture - Preliminary Blood - Venous - Lab Draw NO GROWTH AFTER 1 DAY Anaerobic Blood Culture - Preliminary NO GROWTH AFTER 1 DAY 09/13/19 19:52 Aerobic Blood Culture - Preliminary Blood - Venous NO GROWTH AFTER 1 DAY Anaerobic Blood Culture - Preliminary NO GROWTH AFTER 1 DAY 09/13/19 19:08 Group A Streptococcus Rapid Screen - Final Throat Positive Strep A Screen Med Orders - Current: Current Medications Acetaminophen (Tylenol) 650 mg PO Q6H PRN PRN Reason: Headache/Pain Albuterol/Ipratropium (Duoneb 3.0-0.5 Mg/3 Ml) 3 ml NEB Q4HRRT PRN PRN Reason: Shortness Of Breath/wheezing Dexamethasone (Dexamethasone) 7 mg IVPUSH Q8H [facility] Last Admin: 09/14/19 16:30 Dose: Not Given Sodium Chloride (Normal Saline) 1,000 mls @ 125 mls/hr IV ASDIRECTED [facility] Last Admin: 09/14/19 16:18 Dose: 125 mls/hr Ampicillin Sodium/Sulbactam (Sodium 3 gm/ Sodium Chloride) 100 mls @ 200 mls/ hr IV Q6H [facility] Last Admin: 09/14/19 16:37 Dose: 200 mls/hr Sodium Chloride (Normal Saline) 500 mls @ 999 mls/hr IV .BOLUS [facility] Last Admin: 09/14/19 20:01 Dose: 999 mls/hr Ketorolac Tromethamine (Toradol) 30 mg IV Q6H PRN PRN Reason: Pain (moderate 4-6) Last Admin: 09/14/19 17:29 Dose: 30 mg Morphine Sulfate (Morphine) 1 mg IVPUSH Q6H PRN PRN Reason: PAIN Last Admin: 09/14/19 18:55 Dose: 1 mg Discontinued Medications Dexamethasone (Dexamethasone) 10 mg IVPUSH ONETIME ONE Stop: 09/13/19 19:44 Last Admin: 09/14/19 16:29 Dose: 10 mg Sodium Chloride (Normal Saline) 1,000 mls @ 999 mls/hr IV BOLUS ONE Stop: 09/13/19 20:40 Last Admin: 09/13/19 20:03 Dose: 999 mls/hr Clindamycin Phosphate 900 mg/ (Premix) 50 mls @ 100 mls/hr IV ONETIME ONE Stop: 09/13/19 20:11 Last Admin: 09/13/19 20:03 Dose: 100 mls/hr Ampicillin Sodium/Sulbactam (Sodium 3 gm/ Sodium Chloride) 100 mls @ 200 mls/ hr IV ONETIME ONE Stop: 09/13/19 22:02 Last Admin: 09/13/19 23:33 Dose: Not Given Ampicillin Sodium/Sulbactam (Sodium 3 gm/ Sodium Chloride) 100 mls @ 200 mls/ hr IV ONETIME ONE Stop: 09/13/19 22:44 Last Admin: 09/13/19 23:33 Dose: Not Given Ampicillin Sodium/Sulbactam (Sodium 3 gm/ Sodium Chloride) 100 mls @ 200 mls/ hr IV Q6H YESSI Iopamidol (Isovue-370 (76%)) 100 ml IVPUSH ONETIME ONE Stop: 09/13/19 20:38 Last Admin: 09/13/19 20:53 Dose: 100 ml Ketorolac Tromethamine (Toradol) 30 mg IVPUSH ONETIME ONE Stop: 09/13/19 19:58 Last Admin: 09/13/19 20:03 Dose: 30 mg Ketorolac Tromethamine (Toradol) Confirm Administered Dose 30 mg .ROUTE .STK- MED ONE Stop: 09/13/19 19:58 Last Admin: 09/13/19 21:41 Dose: Not Given Morphine Sulfate (Morphine) 2 mg IVPUSH ONETIME ONE Stop: 09/13/19 21:37 Last Admin: 09/13/19 21:47 Dose: 2 mg Morphine Sulfate (Morphine) 2 mg IVPUSH Q6H PRN PRN Reason: PAIN - Exam Quality Assessment: No: Supplemental Oxygen General: Alert, Oriented, No Acute Distress Neck: Supple, Trachea Midline. No: JVD, Thyromegaly Lungs: Clear to Auscultation, Normal Respiratory Effort Cardiovascular: Regular Rate, Regular Rhythm GI/Abdominal Exam: Normal Bowel Sounds, Soft, Non-Tender, No Abnormal Bruit Peripheral Pulses: 3+: Dorsalis Pedis (L), Dorsalis Pedis (R) Skin: Warm, Dry Sepsis Event Note - Evaluation Sepsis Screening Result: No Definite Risk - Focused Exam Vital Signs: Vital Signs Temp Pulse Resp BP Pulse Ox 09/14/19 15:58 36.6 C 80 16 90/44 L 97 09/14/19 12:00 36.5 C 69 16 108/53 L 97 Date Exam was Performed: 09/19/19 Time Exam was Performed: 14:30 - Problem List & Annotations (1) Peritonsillar abscess SNOMED Code(s): 37083541 Code(s): J36 - PERITONSILLAR ABSCESS Status: Acute (2) H/O drug abuse SNOMED Code(s): 394073061 Code(s): F19.11 - OTHER PSYCHOACTIVE SUBSTANCE ABUSE, IN REMISSION Status: Acute (3) H/O hepatitis SNOMED Code(s): 630967781 Code(s): Z86.19 - PERSONAL HISTORY OF OTHER INFECTIOUS AND PARASITIC DISEASES Status: Acute - Problem List Review Problem List Initiated/Reviewed/Updated: Yes - My Orders Last 24 Hours: My Active Orders 09/13/19 22:49 Oxygen Therapy [RC] PRN VTE/DVT Education [RC] PER UNIT ROUTINE Vital Signs [RC] Q4H Albuterol/Ipratropium [DuoNeb 3.0-0.5 MG/3 ML] 3 ml NEB Q4HRRT PRN Ketorolac [Toradol] 30 mg IV Q6H PRN Resuscitation Status Routine 09/13/19 22:53 RT Aerosol Therapy [RC] ASDIRECTED 09/13/19 22:57 Ampicillin/Sulbactam Na [Unasyn] 3 gm Sodium Chloride 0.9% [Normal Saline] 100 ml IV Q6H 09/13/19 23:00 Sodium Chloride 0.9% [Normal Saline] 1,000 ml IV ASDIRECTED dexAMETHasone [Dexamethasone] 7 mg IVPUSH Q8H 09/14/19 19:30 Sodium Chloride 0.9% [Normal Saline] 500 ml IV .BOLUS 09/14/19 21:20 Acetaminophen [Tylenol] 650 mg PO Q6H PRN 09/14/19 Lunch Clear Liquid Diet [DIET] 09/15/19 05:11 BMP [BASIC METABOLIC PANEL,BMP] [CHEM] AM CBC WITH AUTO DIFF [HEME] AM MAGNESIUM [CHEM] AM PHOSPHORUS [CHEM] AM - Plan Plan:: A/P: 34 y/o F comes in for evaluation of sore throat, was found to have Tonsillar abscess of CT neck, strep throat positive Per ENT surgeon at [place], doesn't need to be drained cont IV Unasyn, and IV Decadron cont IV Toradol and IV morphine for pain Advance diet to clear diet Monitor vitals closely Monitor and replete electrolytes as needed DVT ppx with SCD Anticipate 2-3 midnight stays
[2019-09-14] MEDS: Acetaminophen 325 MG Tab PO PRN (21:53)
[2019-09-15] MEDS: Ketorolac 30 MG/ML SDV IV PRN ×3 (00:12→21:02)
[2019-09-15] MEDS: Morphine 2 MG/ML Syringe IVPUSH PRN (01:19)
[2019-09-15] MEDS: Sodium Chloride 0.9% 1,000 ML IV SCH ×3 (01:45→14:38)
[2019-09-15] MEDS: Acetaminophen 325 MG Tab PO PRN ×2 (03:39→10:32)
[2019-09-15] MEDS ORDERED: Morphine 2 MG/ML Syringe IVPUSH PRN (04:42)
[2019-09-15] MEDS: Ampicillin/Sulbactam Na 3 GM in Sodium Chloride 0.9% 100 ML IV SCH ×4 (05:20→22:55)
[2019-09-15] MEDS: Dexamethasone 10 MG/ML SDV IVPUSH SCH ×3 (06:23→22:55)
[2019-09-15 07:08] LABS: BLOOD UREA NITROGEN,BUN 15 mg/dL (7.0-18.0); CARBON DIOXIDE,CO2 23.9 mmol/L (21.0-32.0); CHLORIDE,CL 109 mmol/L (98-107); GLUCOSE RANDOM 131 mg/dL (74-106); POTASSIUM,K 3.6 mmol/L (3.5-5.1); SODIUM,NA 141 mmol/L (136-145)
[2019-09-15] MEDS: Benzocaine/Cetylpyridinium/Menthol Lozenge MUCMEM PRN ×2 (11:54→18:43)
[2019-09-15] MEDS: SUMAtriptan 50 MG Tab PO PRN ×2 (11:54→23:21)
[2019-09-15] MEDS ORDERED: oxyCODONE 5 MG Tab PO PRN (12:27)
--- NOTE | 2019-09-15 12:34 | PCM.PN ---
- General Info Date of Service: 09/15/19 Admission Dx/Problem (Free Text): Admission Diagnosis/Problem Admission Diagnosis/Problem Peritonsillar abscess Subjective Update: Continues to have sore throat, but this is improving slightly, pain was extreme overnight. No breathing concerns. No chest pain. Reports she feels like migraine is coming on. Functional Status: Reports: Pain Controlled, Tolerating Diet, Ambulating, Urinating - Review of Systems General: Reports: Weakness, Malaise HEENT: Reports: Headaches, Sore Throat Pulmonary: Reports: No Symptoms. Denies: Shortness of Breath Cardiovascular: Reports: No Symptoms. Denies: Chest Pain Gastrointestinal: Reports: No Symptoms. Denies: Abdominal Pain, Nausea, Vomiting Genitourinary: Reports: No Symptoms Musculoskeletal: Reports: No Symptoms Skin: Reports: No Symptoms Neurological: Reports: Tingling Psychiatric: Reports: No Symptoms - Patient Data Vitals - Most Recent: Last Vital Signs Temp 97.2 F 09/15/19 12:00 Pulse 58 L 09/15/19 12:00 Resp 60 H 09/15/19 12:00 BP 92/50 L 09/15/19 12:00 Pulse Ox 98 09/15/19 12:00 Weight - Most Recent: 68.039 kg I&O - Last 24 Hours: Intake & Output 09/14/19 09/15/19 09/15/19 22:59 06:59 14:59 Intake Total 2132 997 Output Total 400 Balance 1732 997 Lab Results Last 24 Hours: Laboratory Results - last 24 hr 09/15/19 09/15/19 Range/Units 06:28 06:28 WBC 10.33 (4.0-11.0) K/uL RBC 3.74 L (4.30-5.90) M/uL Hgb 11.6 L (12.0-16.0) g/dL Hct 34.2 L (36.0-46.0) % MCV 91.4 (80.0-98.0) fL MCH 31.0 (27.0-32.0) pg MCHC 33.9 (31.0-37.0) g/dL RDW Std Deviation 41.0 (28.0-62.0) fl RDW Coeff of Ana 12 (11.0-15.0) % Plt Count 219 (150-400) K/uL MPV 9.20 (7.40-12.00) fL Neut % (Auto) 88.5 H (48.0-80.0) % Lymph % (Auto) 8.1 L (16.0-40.0) % [place] % (Auto) 3.3 (0.0-15.0) % Eos % (Auto) 0.0 (0.0-7.0) % Baso % (Auto) 0.1 (0.0-1.5) % Neut # (Auto) 9.1 H (1.4-5.7) K/uL Lymph # (Auto) 0.8 (0.6-2.4) K/uL [place] # (Auto) 0.3 (0.0-0.8) K/uL Eos # (Auto) 0.0 (0.0-0.7) K/uL Baso # (Auto) 0.0 (0.0-0.1) K/uL Nucleated RBC % 0.0 /100WBC Nucleated RBCs # 0 K/uL Sodium 141 (136-145) mmol/L Potassium 3.6 (3.5-5.1) mmol/L Chloride 109 H (98-107) mmol/L Carbon Dioxide 23.9 (21.0-32.0) mmol/L BUN 15 (7.0-18.0) mg/dL Creatinine 0.6 (0.6-1.0) mg/dL Est Cr Clr Drug Dosing 116.64 mL/min Estimated GFR (MDRD) > 60.0 ml/min Glucose 131 H (74-106) mg/dL Calcium 7.9 L (8.5-10.1) mg/dL Phosphorus 3.0 (2.6-4.7) mg/dL Magnesium 1.8 (1.8-2.4) mg/dL Robbie Results Last 24 Hours: Microbiology 09/13/19 20:10 Aerobic Blood Culture - Preliminary Blood - Venous - Lab Draw NO GROWTH AFTER 1 DAY Anaerobic Blood Culture - Preliminary NO GROWTH AFTER 1 DAY 09/13/19 19:52 Aerobic Blood Culture - Preliminary Blood - Venous NO GROWTH AFTER 1 DAY Anaerobic Blood Culture - Preliminary NO GROWTH AFTER 1 DAY Med Orders - Current: Current Medications Acetaminophen (Tylenol) 650 mg PO Q6H PRN PRN Reason: Headache/Pain Last Admin: 09/15/19 10:32 Dose: 650 mg Albuterol/Ipratropium (Duoneb 3.0-0.5 Mg/3 Ml) 3 ml NEB Q4HRRT PRN PRN Reason: Shortness Of Breath/wheezing Benzocaine/Menthol (Cepacol Sore Throat) 1 lozenge MUCMEM Q2H PRN PRN Reason: Sore Throat Last Admin: 09/15/19 11:54 Dose: 1 lozenge Dexamethasone (Dexamethasone) 7 mg IVPUSH Q8H YESSI Last Admin: 09/15/19 06:23 Dose: 7 mg Sodium Chloride (Normal Saline) 1,000 mls @ 125 mls/hr IV ASDIRECTED YESSI Last Admin: 09/15/19 10:36 Dose: 125 mls/hr Ampicillin Sodium/Sulbactam (Sodium 3 gm/ Sodium Chloride) 100 mls @ 200 mls/ hr IV Q6H YESSI Last Admin: 09/15/19 10:37 Dose: 200 mls/hr Sodium Chloride (Normal Saline) 500 mls @ 999 mls/hr IV .[facility] Last Admin: 09/14/19 20:01 Dose: 999 mls/hr Ketorolac Tromethamine (Toradol) 30 mg IV Q6H PRN PRN Reason: Pain (moderate 4-6) Last Admin: 09/15/19 09:15 Dose: 30 mg Morphine Sulfate (Morphine) 2 mg IVPUSH Q4H PRN PRN Reason: PAIN Last Admin: 09/15/19 05:15 Dose: 2 mg Oxycodone HCl (Oxycodone) 5 mg PO Q6H PRN PRN Reason: Pain Sumatriptan Succinate (Imitrex) 50 mg PO Q2H PRN PRN Reason: migraine Last Admin: 09/15/19 11:54 Dose: 50 mg Discontinued Medications Dexamethasone (Dexamethasone) 10 mg IVPUSH ONETIME ONE Stop: 09/13/19 19:44 Last Admin: 09/14/19 16:29 Dose: 10 mg Sodium Chloride (Normal Saline) 1,000 mls @ 999 mls/hr IV BOLUS ONE Stop: 09/13/19 20:40 Last Admin: 09/13/19 20:03 Dose: 999 mls/hr Clindamycin Phosphate 900 mg/ (Premix) 50 mls @ 100 mls/hr IV ONETIME ONE Stop: 09/13/19 20:11 Last Admin: 09/13/19 20:03 Dose: 100 mls/hr Ampicillin Sodium/Sulbactam (Sodium 3 gm/ Sodium Chloride) 100 mls @ 200 mls/ hr IV ONETIME ONE Stop: 09/13/19 22:02 Last Admin: 09/13/19 23:33 Dose: Not Given Ampicillin Sodium/Sulbactam (Sodium 3 gm/ Sodium Chloride) 100 mls @ 200 mls/ hr IV ONETIME ONE Stop: 09/13/19 22:44 Last Admin: 09/13/19 23:33 Dose: Not Given Ampicillin Sodium/Sulbactam (Sodium 3 gm/ Sodium Chloride) 100 mls @ 200 mls/ hr IV Q6H YESSI Iopamidol (Isovue-370 (76%)) 100 ml IVPUSH ONETIME ONE Stop: 09/13/19 20:38 Last Admin: 09/13/19 20:53 Dose: 100 ml Ketorolac Tromethamine (Toradol) 30 mg IVPUSH ONETIME ONE Stop: 09/13/19 19:58 Last Admin: 09/13/19 20:03 Dose: 30 mg Ketorolac Tromethamine (Toradol) Confirm Administered Dose 30 mg .ROUTE .STK- MED ONE Stop: 09/13/19 19:58 Last Admin: 09/13/19 21:41 Dose: Not Given Morphine Sulfate (Morphine) 2 mg IVPUSH ONETIME ONE Stop: 09/13/19 21:37 Last Admin: 09/13/19 21:47 Dose: 2 mg Morphine Sulfate (Morphine) 2 mg IVPUSH Q6H PRN PRN Reason: PAIN Morphine Sulfate (Morphine) 1 mg IVPUSH Q6H PRN PRN Reason: PAIN Last Admin: 09/15/19 01:19 Dose: 1 mg - Exam General: Alert, Oriented, Cooperative HEENT: Other (L tonsil improving, no purulent drainage, swelling decreasing) Neck: Supple, Lymphadenopathy Lungs: Clear to Auscultation, Normal Respiratory Effort Cardiovascular: Regular Rate, Regular Rhythm GI/Abdominal Exam: Normal Bowel Sounds, Soft, Non-Tender Extremities: Normal Inspection, Normal Range of Motion, Non-Tender, No Pedal Edema Neurological: No New Focal Deficit Psy/Mental Status: Alert, Normal Affect, Normal Mood Sepsis Event Note - Evaluation Sepsis Screening Result: No Definite Risk - Focused Exam Vital Signs: Vital Signs Temp Pulse Resp BP Pulse Ox 09/15/19 12:00 97.2 F 58 L 60 H 92/50 L 98 09/15/19 10:00 96.9 F 57 L 17 102/56 L 98 09/15/19 03:38 97.9 F 65 17 105/58 L 97 Date Exam was Performed: 09/15/19 Time Exam was Performed: 12:34 - Problem List & Annotations (1) Peritonsillar abscess SNOMED Code(s): 49279594 Code(s): J36 - PERITONSILLAR ABSCESS Status: Acute Current Visit: Yes (2) Strep pharyngitis SNOMED Code(s): 89766275 Code(s): J02.0 - STREPTOCOCCAL PHARYNGITIS Status: Acute Current Visit: Yes (3) Headache SNOMED Code(s): 33231695 Code(s): R51 - HEADACHE Status: Acute Current Visit: No Qualifiers: Headache type: unspecified Headache chronicity pattern: acute headache Intractability: not intractable Qualified Code(s): R51 - Headache (4) Migraine SNOMED Code(s): 37611710 Code(s): G43.909 - MIGRAINE, UNSP, NOT INTRACTABLE, WITHOUT STATUS MIGRAINOSUS Status: Acute Current Visit: No - Problem List Review Problem List Initiated/Reviewed/Updated: Yes - My Orders Last 24 Hours: My Active Orders 09/15/19 09:07 Benzocaine/Cetylpyrd/Menthol [Cepacol Sore Throat] 1 lozenge MUCMEM Q2H PRN 09/15/19 10:42 SUMAtriptan [Imitrex] 50 mg PO Q2H PRN 09/15/19 12:27 oxyCODONE 5 mg PO Q6H PRN 09/15/19 Lunch Soft Diet [DIET] 09/16/19 05:11 BMP [BASIC METABOLIC PANEL,BMP] [CHEM] AM CBC WITH AUTO DIFF [HEME] AM 09/17/19 05:11 BMP [BASIC METABOLIC PANEL,BMP] [CHEM] AM CBC WITH AUTO DIFF [HEME] AM - Plan Plan:: This 34 year old female admitted with Tonsillar abscess neck, strep throat positive 1. Tonsillar abscess/strep throat: ENT consulted via phone in ED, recommended only IV antibiotics. Continue Unasyn, swelling improving, pain is tolerable now. Continue Decadron for now. Toradol and low dose Morphine for pain PRN. Advance diet today as swelling improving. Monitor today. 2. Migraine: Trial Imitrex today. VTE prophylaxis: SCDs and ambulation. Dispo: 1-2 days
[2019-09-15] MEDS: oxyCODONE 5 MG Tab PO PRN ×2 (12:51→18:43)
[2019-09-16] MEDS: oxyCODONE 5 MG Tab PO PRN ×3 (00:31→13:47)
[2019-09-16] MEDS: Ketorolac 30 MG/ML SDV IV PRN (03:13)
[2019-09-16] MEDS: Benzocaine/Cetylpyridinium/Menthol Lozenge MUCMEM PRN (03:14)
[2019-09-16] MEDS: Sodium Chloride 0.9% 1,000 ML IV SCH (03:15)
[2019-09-16] MEDS: Ampicillin/Sulbactam Na 3 GM in Sodium Chloride 0.9% 100 ML IV SCH ×2 (04:37→10:10)
[2019-09-16] MEDS: Dexamethasone 10 MG/ML SDV IVPUSH SCH (06:37)
[2019-09-16 06:57] LABS: BLOOD UREA NITROGEN,BUN 19 mg/dL (7.0-18.0); CARBON DIOXIDE,CO2 23.4 mmol/L (21.0-32.0); CHLORIDE,CL 109 mmol/L (98-107); GLUCOSE RANDOM 125 mg/dL (74-106); POTASSIUM,K 3.7 mmol/L (3.5-5.1); SODIUM,NA 142 mmol/L (136-145)
[2019-09-16 13:42] VITALS: BP 121/60; PULSE 60
--- NOTE | 2019-09-16 14:16 | PCM.DCSUM1 ---
Discharge Summary - Hospital Course Brief History: Patient is a 34 y/o F with PMH of Hepatitis C, s/p treatment, h/ o IV drug abuse comes in with c/o sore throat and feeling fatigued for last 3-4 days. Patient states her sore throat has been getting worse and she has been unable to eat or driink much due to pain. In the ER patient was found to have positive strep throat, CT neck showed right tonsillar abscess, measuring 1.6x1.3x1.6. ENT at [place] was consulyed, recommnded to start IV antibiotics and no need for drainiage as of now. No airway compromise was noted on CT. Patient is being admitted for management of tonsillar abscess secondary to strep throat. Diagnosis: Stroke: No - Discharge Data Discharge Date: 09/16/19 Discharge Disposition: Home, Self-Care 01 Condition: Stable - Referral to Home Health Primary Care Physician: Annamaria Lee, DO - Discharge Diagnosis/Problem(s) (1) Peritonsillar abscess SNOMED Code(s): 81664184 ICD Code: J36 - PERITONSILLAR ABSCESS Status: Acute Current Visit: Yes (2) Strep pharyngitis SNOMED Code(s): 13036598 ICD Code: J02.0 - STREPTOCOCCAL PHARYNGITIS Status: Acute Current Visit: Yes (3) Headache SNOMED Code(s): 78816708 ICD Code: R51 - HEADACHE Status: Acute Current Visit: No Qualifiers: Headache type: unspecified Headache chronicity pattern: acute headache Intractability: not intractable Qualified Code(s): R51 - Headache (4) Migraine SNOMED Code(s): 92175514 ICD Code: G43.909 - MIGRAINE, UNSP, NOT INTRACTABLE, WITHOUT STATUS MIGRAINOSUS Status: Acute Current Visit: No - Patient Instructions Diet: Mechanical Soft Activity: As Tolerated, No Strenuous Activities Driving: Do Not Drive Showering/Bathing: May Shower Notify Provider of: Fever, Increased Pain, Swelling and Redness, Drainage, Nausea and/or Vomiting - Discharge Plan *PRESCRIPTION DRUG MONITORING PROGRAM REVIEWED*: Not Applicable *COPY OF PRESCRIPTION DRUG MONITORING REPORT IN PATIENT LIVAN: Not Applicable Prescriptions/Med Rec: Benzocaine/Menthol [Cepacol Sore Throat Lozenge] 1 each MM Q2H #30 lozenge Clindamycin HCl 300 mg PO QID #28 capsule Ibuprofen 400 mg PO Q6H #1 tablet traMADol HCl [Tramadol HCl] 50 mg PO Q6H PRN #10 tablet PRN Reason: severe pain Home Medications: Home Meds OLANZapine [Olanzapine] 2.5 mg PO BEDTIME 09/14/19 [History] hydrOXYzine HCL [hydrOXYzine] 25 mg PO BID 09/14/19 [History] valACYclovir HCl [Valtrex] 500 mg PO DAILY 09/14/19 [History] Acetaminophen [Tylenol] 650 mg PO Q6H PRN tablet 09/16/19 [Rx] Benzocaine/Menthol [Cepacol Sore Throat Lozenge] 1 each MM Q2H #30 lozenge 09/16 [Rx] Clindamycin HCl 300 mg PO QID #28 capsule 09/16/19 [Rx] Ibuprofen 400 mg PO Q6H #1 tablet 09/16/19 [Rx] traMADol HCl [Tramadol HCl] 50 mg PO Q6H PRN #10 tablet 09/16/19 [Rx] Patient Handouts: Ibuprofen tablets and capsules, Peritonsillar Abscess, Easy- to-Read, Clindamycin capsules, Tramadol tablets, Benzocaine Oral Lozenges, Pharyngitis, [id number] Referrals: [facility] [Outside] Cain De MD [Ordering Only Provider] - (They will call with appointment ) Annamaria Lee DO [Primary Care Provider] - 10/01/19 10:30 am - Discharge Summary/Plan Comment DC Time >30 min.: No Discharge Summary/Plan Comment: Admitting Diagnosis: Tonsillar abscess Strep A pharyngitis Discharge Diagnoses: Tonsillar abscess Other PMH: Hepatitis C s/p treatment Hx IV drug abuse Naveen was admitted secondary to sore throat, in the ED she was noted to have L tonsillar abscess. ENT in [place] was consulted over the phone, they recommended IV antibiotics and no transfer at that time. She was admitted and treated with Unasyn along with Decadron. She steadily improved, leukocytosis improved. She tolerated CL diet well which was then advanced to soft diet. Tonsillar edema improved along with pain reduction as well. She is eager for discharge home today. She will be discharged with 7 more days of Clindamycin along with follow up with ENT to insure adequate healing and no further management is needed. Referral sent to [facility] per patient request. She is to continue with soft diet as throat heals. She is to return to ED if swelling returns or fevers start again. She will be sent with Tramadol for 2 days for pain, along with Tylenol and Ibuprofen. She is to follow up with PCP as well. - Patient Data Vitals - Most Recent: Last Vital Signs Temp 97.3 F 09/16/19 11:00 Pulse 60 09/16/19 11:00 Resp 16 09/16/19 11:00 BP 121/60 09/16/19 11:00 Pulse Ox 95 09/16/19 11:00 Weight - Most Recent: 68.039 kg I&O - Last 24 hours: Intake & Output 09/15/19 09/16/19 09/16/19 22:59 06:59 14:59 Intake Total 2412 1632 Output Total 300 750 Balance 2112 882 Lab Results - Last 24 hrs: Laboratory Results - last 24 hr 09/16/19 09/16/19 Range/Units 06:10 06:10 WBC 7.11 (4.0-11.0) K/uL RBC 3.66 L (4.30-5.90) M/uL Hgb 11.3 L (12.0-16.0) g/dL Hct 33.9 L (36.0-46.0) % MCV 92.6 (80.0-98.0) fL MCH 30.9 (27.0-32.0) pg MCHC 33.3 (31.0-37.0) g/dL RDW Std Deviation 41.8 (28.0-62.0) fl RDW Coeff of Ana 12 (11.0-15.0) % Plt Count 271 (150-400) K/uL MPV 9.40 (7.40-12.00) fL Neut % (Auto) 81.3 H (48.0-80.0) % Lymph % (Auto) 13.1 L (16.0-40.0) % [place] % (Auto) 5.5 (0.0-15.0) % Eos % (Auto) 0.0 (0.0-7.0) % Baso % (Auto) 0.1 (0.0-1.5) % Neut # (Auto) 5.8 H (1.4-5.7) K/uL Lymph # (Auto) 0.9 (0.6-2.4) K/uL [place] # (Auto) 0.4 (0.0-0.8) K/uL Eos # (Auto) 0.0 (0.0-0.7) K/uL Baso # (Auto) 0.0 (0.0-0.1) K/uL Nucleated RBC % 0.0 /100WBC Nucleated RBCs # 0 K/uL Sodium 142 (136-145) mmol/L Potassium 3.7 (3.5-5.1) mmol/L Chloride 109 H (98-107) mmol/L Carbon Dioxide 23.4 (21.0-32.0) mmol/L BUN 19 H (7.0-18.0) mg/dL Creatinine 0.6 (0.6-1.0) mg/dL Est Cr Clr Drug Dosing 116.64 mL/min Estimated GFR (MDRD) > 60.0 ml/min Glucose 125 H (74-106) mg/dL Calcium 7.7 L (8.5-10.1) mg/dL HAL Results - Last 24 hrs: Microbiology 09/13/19 20:10 Aerobic Blood Culture - Preliminary Blood - Venous - Lab Draw NO GROWTH AFTER 2 DAYS Anaerobic Blood Culture - Preliminary NO GROWTH AFTER 2 DAYS 09/13/19 19:52 Aerobic Blood Culture - Preliminary Blood - Venous NO GROWTH AFTER 2 DAYS Anaerobic Blood Culture - Preliminary NO GROWTH AFTER 2 DAYS Med Orders - Current: Current Medications Acetaminophen (Tylenol) 650 mg PO Q6H PRN PRN Reason: Headache/Pain Last Admin: 09/15/19 10:32 Dose: 650 mg Albuterol/Ipratropium (Duoneb 3.0-0.5 Mg/3 Ml) 3 ml NEB Q4HRRT PRN PRN Reason: Shortness Of Breath/wheezing Benzocaine/Menthol (Cepacol Sore Throat) 1 lozenge MUCMEM Q2H PRN PRN Reason: Sore Throat Last Admin: 09/16/19 03:14 Dose: 1 lozenge Dexamethasone (Dexamethasone) 7 mg IVPUSH Q8H YESSI Last Admin: 09/16/19 06:37 Dose: 7 mg Ampicillin Sodium/Sulbactam (Sodium 3 gm/ Sodium Chloride) 100 mls @ 200 mls/ hr IV Q6H YESSI Last Admin: 09/16/19 10:10 Dose: 200 mls/hr Ketorolac Tromethamine (Toradol) 30 mg IV Q6H PRN PRN Reason: Pain (moderate 4-6) Last Admin: 09/16/19 03:13 Dose: 30 mg Oxycodone HCl (Oxycodone) 5 mg PO Q6H PRN PRN Reason: Pain Last Admin: 09/16/19 13:47 Dose: 5 mg Discontinued Medications Dexamethasone (Dexamethasone) 10 mg IVPUSH ONETIME ONE Stop: 09/13/19 19:44 Last Admin: 09/14/19 16:29 Dose: 10 mg Sodium Chloride (Normal Saline) 1,000 mls @ 999 mls/hr IV BOLUS ONE Stop: 09/13/19 20:40 Last Admin: 09/13/19 20:03 Dose: 999 mls/hr Clindamycin Phosphate 900 mg/ (Premix) 50 mls @ 100 mls/hr IV ONETIME ONE Stop: 09/13/19 20:11 Last Admin: 09/13/19 20:03 Dose: 100 mls/hr Ampicillin Sodium/Sulbactam (Sodium 3 gm/ Sodium Chloride) 100 mls @ 200 mls/ hr IV ONETIME ONE Stop: 09/13/19 22:02 Last Admin: 09/13/19 23:33 Dose: Not Given Ampicillin Sodium/Sulbactam (Sodium 3 gm/ Sodium Chloride) 100 mls @ 200 mls/ hr IV ONETIME ONE Stop: 09/13/19 22:44 Last Admin: 09/13/19 23:33 Dose: Not Given Sodium Chloride (Normal Saline) 1,000 mls @ 125 mls/hr IV ASDIRECTED YESSI Last Admin: 09/15/19 10:36 Dose: 125 mls/hr Ampicillin Sodium/Sulbactam (Sodium 3 gm/ Sodium Chloride) 100 mls @ 200 mls/ hr IV Q6H YESSI Sodium Chloride (Normal Saline) 500 mls @ 999 mls/hr IV .BOLUS YESSI Last Admin: 09/14/19 20:01 Dose: 999 mls/hr Sodium Chloride (Normal Saline) 1,000 mls @ 75 mls/hr IV Q13H YESSI Last Admin: 09/16/19 03:15 Dose: 75 mls/hr Iopamidol (Isovue-370 (76%)) 100 ml IVPUSH ONETIME ONE Stop: 09/13/19 20:38 Last Admin: 09/13/19 20:53 Dose: 100 ml Ketorolac Tromethamine (Toradol) 30 mg IVPUSH ONETIME ONE Stop: 09/13/19 19:58 Last Admin: 09/13/19 20:03 Dose: 30 mg Ketorolac Tromethamine (Toradol) Confirm Administered Dose 30 mg .ROUTE .STK- MED ONE Stop: 09/13/19 19:58 Last Admin: 09/13/19 21:41 Dose: Not Given Morphine Sulfate (Morphine) 2 mg IVPUSH ONETIME ONE Stop: 09/13/19 21:37 Last Admin: 09/13/19 21:47 Dose: 2 mg Morphine Sulfate (Morphine) 2 mg IVPUSH Q6H PRN PRN Reason: PAIN Morphine Sulfate (Morphine) 1 mg IVPUSH Q6H PRN PRN Reason: PAIN Last Admin: 09/15/19 01:19 Dose: 1 mg Morphine Sulfate (Morphine) 2 mg IVPUSH Q4H PRN PRN Reason: PAIN Last Admin: 09/15/19 05:15 Dose: 2 mg Oxycodone HCl (Oxycodone) 5 mg PO Q6H PRN PRN Reason: Pain Sumatriptan Succinate (Imitrex) 50 mg PO Q2H PRN PRN Reason: migraine Last Admin: 09/15/19 23:21 Dose: 50 mg
== END 2019-09-16 15:15 | disposition home or self-care (01) ==
LOC: MW.ED 18:38 → MW.MS 21:35
PROVIDERS: ADMIT Student in an Organized Health Care Education/Training Program; ATTEND Student in an Organized Health Care Education/Training Program
DX: J36 Peritonsillar abscess (principal); B95.0 Streptococcus, group A, as the cause of diseases classified elsewhere; F32.9 Major depressive disorder, single episode, unspecified; G43.909 Migraine, unspecified, not intractable, without status migrainosus; F19.11 Other psychoactive substance abuse, in remission; F17.210 Nicotine dependence, cigarettes, uncomplicated; Z88.8 Allergy status to other drugs, medicaments and biological substances; Z86.19 Personal history of other infectious and parasitic diseases
CPT/HCPCS: 36415; 70491; 80048; 80053; 81003; 83605; 83735; 84100; 84703; 85025; 87040; 87880; 96361; 96365; 96366; 96367; 96375; 96376; 99284; A9270; G0378; J0295; J1100; J1885; J2270; J3490; J7030; J7040; J7050; Q9967

== ENCOUNTER 2020-03-13 18:27 | Emergency (ER) | payer SELFPAY ==
[2020-03-13 18:52] VITALS: BP 97/41; PULSE 89
[2020-03-13] MEDS ORDERED: Sodium Chloride 0.9% 1,000 ML IV ONE (19:30)
[2020-03-13] MEDS ORDERED: Ketorolac 15 MG/ML SDV IVPUSH ONE (19:35)
[2020-03-13 20:15] LABS: BLOOD UREA NITROGEN,BUN 15 mg/dL (7.0-18.0); CARBON DIOXIDE,CO2 27.9 mmol/L (21.0-32.0); CHLORIDE,CL 105 mmol/L (98-107); GLUCOSE RANDOM 80 mg/dL (74-106); POTASSIUM,K 3.7 mmol/L (3.5-5.1); SODIUM,NA 143 mmol/L (136-145)
--- NOTE | 2020-03-13 21:02 | EDM.PDOC ---
ED HPI GENERAL MEDICAL PROBLEM - General Chief Complaint: General Stated Complaint: ANXIETY Time Seen by Provider: 03/13/20 18:45 - History of Present Illness INITIAL COMMENTS - FREE TEXT/NARRATIVE: HISTORY AND PHYSICAL: History of present illness: This is a 34-year-old female with no significant past medical history who presents to the ER today secondary to generalized weakness malaise and headache. Patient also reports that she feels slightly anxious secondary to her headache. Patient denies any recent fevers, shakes, chills, nausea, vomiting, diarrhea, dysuria, frequency, urgency, chest pain, shortness of breath , abdominal pain, dysuria, frequency, urgency. Patient reports that she is currently being treated with Bactrim for urinary tract infection by her primary care physician. Patient has any double vision or blurred vision. Patient denies any focal weakness to her upper or lower extremities. Patient reports that she has had migraines similar to this in the past but the last time that she had to come to the hospital was approximately 1 year ago. Patient denies any sore throat or URI symptoms. Patient denies any coronavirus exposures. Review of systems: As per history of present illness and below otherwise all systems reviewed and negative. Past medical history: As per history of present illness and as reviewed below otherwise noncontributory. Surgical history: As per history of present illness and as reviewed below otherwise noncontributory. Social history: No reported history of drug or alcohol abuse. Family history: As per history of present illness and as reviewed below otherwise noncontributory. Physical exam: Constitutional: Patient is oriented to person, place, and time. Appears well- developed and well-nourished. No distress. HEENT: Moist mucous membranes Head: Normocephalic and atraumatic Eyes: Right eye exhibits no discharge. Left eye exhibits no discharge. No scleral icterus Neck: Normal range of motion. No tracheal deviation present. Cardiovascular: Normal rate and regular rhythm. Pulmonary: Effort normal, no respiratory distress. Abdominal: No distention Musculoskeletal: Normal range of motion Neurologic: Alert and oriented to person, place and time. Skin: Bee, warm and dry. Psychiatric: Normal mood and affect. Behavior is normal. Judgment and thought content normal. Nursing note and vital signs have been reviewed Patient's ER physical exam is unremarkable. Patient is well-appearing and in no acute distress. Diagnostics: Patient has CBC, CMP and urinalysis which were all unremarkable. Patient's urine test is negative. Specific gravity in her urinalysis was 1.030. This may be a sign of dehydration. Therapeutics: Patient was given Toradol 50 mg IV as well as normal saline solution wide open x1 L. Impression: This is a 34-year-old female who presented to the ER today secondary to generalized weakness headache and fatigue. Patient was given Toradol 15 mg and normal saline wide-open. Patient reports that she feels slightly improved although she is still having a little bit of a headache. Patient's labs are all unremarkable. Patient does have a urinalysis that is consistent with dehydration. Patient has been treated with 1 L of normal saline and Toradol. Plan: Etiology of patient's symptoms are unclear however at this time patient does not exhibit any acute emergent issues under identifiable level require further evaluation in the ED. Patient will be encouraged to follow-up with her primary care physician for reevaluation of her symptoms. Patient has been instructed to increase her fluid intake over the next 12 to 24 hours and to get plenty of rest and to reevaluate her symptoms in the morning. Reassessment at the time of disposition demonstrates that the patient is in no acute distress. The patient has remained stable throughout the entire ED visit and is without objective evidence for acute process requiring urgent intervention or hospitalization. The patient is stable for discharge, counseling is provided as documented above, discussed symptomatic treatment and specific conditions for return. I have spoken with the patient/caregive and discussed todays findings, in addition to providing specific details for the plan of care. Questions are answered and there is agreement with the plan. Definitive disposition and diagnosis as appropriate pending reevaluation and review of above. Headache Pain Score (Numeric/FACES): 8 - Related Data Allergies Allergy/AdvReac Type Severity Reaction Status Date / Time lurasidone [From Latuda] Allergy Hives Verified 03/13/20 18:45 Home Meds: Home Meds Cetirizine [ZyrTEC] 10 mg PO DAILY 03/13/20 [History] FLUoxetine [PROzac] 40 mg PO DAILY 03/13/20 [History] cloNIDine [Catapres] 0.1 mg PO DAILY 03/13/20 [History] Past Medical History - Past Health History Medical/Surgical History: Denies Medical/Surgical History HEENT History: Reports: Other (See Below) Other HEENT History: wears glasses Cardiovascular History: Reports: None Respiratory History: Reports: None Gastrointestinal History: Reports: Hepatitis Other Gastrointestinal History: HX of Hepatitis C- took medication and is now negative Genitourinary History: Reports: 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: Musculoskeletal History: Reports: Fracture, Fibromyalgia Other Musculoskeletal History: hx of fx left wrist Neurological History: Reports: Concussion Psychiatric History: Reports: Anxiety, Depression, PTSD Endocrine/Metabolic History: Reports: None Hematologic History: Reports: None Immunologic History: Reports: None Oncologic (Cancer) History: Reports: None Dermatologic History: Reports: None - Infectious Disease History Infectious Disease History: Reports: None - Past Surgical History Head Surgeries/Procedures: Reports: None HEENT Surgical History: Reports: None Cardiovascular Surgical History: Reports: None Respiratory Surgical History: Reports: None GI Surgical History: Reports: None Female Surgical History: Reports: Other (See Below) Other Female Surgeries/Procedures: Laparoscopy Endocrine Surgical History: Reports: None Neurological Surgical History: Reports: None Musculoskeletal Surgical History: Reports: Other (See Below) Other Musculoskeletal Surgeries/Procedures:: hx of I&D of arm abscess Oncologic Surgical History: Reports: None Dermatological Surgical History: Reports: None Social & Family History - Family History Family Medical History: Noncontributory Cardiac: Reports: CAD Oncologic: Reports: Other (See Below) Other Oncologic Family History: CA - Tobacco Use Smoking Status *Q: Unknown Ever Smoked - Caffeine Use Caffeine Use: Reports: Coffee Caffeine Use Comment: 1-2/day - Recreational Drug Use Recreational Drug Use: No ED ROS GENERAL - Review of Systems Review Of Systems: Comprehensive ROS is negative, except as noted in HPI. ED EXAM, GENERAL - Physical Exam Exam: See Below Course - Vital Signs Last Recorded V/S: Last Vital Signs Temp 98.5 F 03/13/20 18:50 Pulse 89 03/13/20 18:50 Resp 18 03/13/20 18:50 BP 97/41 L 03/13/20 18:50 Pulse Ox 99 03/13/20 18:50 - Orders/Labs/Meds Labs: Laboratory Tests 03/13/20 03/13/20 03/13/20 Range/Units 19:30 19:30 19:39 WBC 6.47 (4.0-11.0) K/uL RBC 4.42 (4.30-5.90) M/uL Hgb 14.0 (12.0-16.0) g/dL Hct 41.3 (36.0-46.0) % MCV 93.4 (80.0-98.0) fL MCH 31.7 (27.0-32.0) pg MCHC 33.9 (31.0-37.0) g/dL RDW Std Deviation 42.8 (28.0-62.0) fl RDW Coeff of Ana 12 (11.0-15.0) % Plt Count 244 (150-400) K/uL MPV 9.00 (7.40-12.00) fL Nucleated RBC % 0.0 /100WBC Nucleated RBCs # 0 K/uL Sodium (136-145) mmol/L Potassium (3.5-5.1) mmol/L Chloride (98-107) mmol/L Carbon Dioxide (21.0-32.0) mmol/L BUN (7.0-18.0) mg/dL Creatinine (0.6-1.0) mg/dL Est Cr Clr Drug Dosing mL/min Estimated GFR (MDRD) ml/min Glucose (74-106) mg/dL Calcium (8.5-10.1) mg/dL Total Bilirubin (0.2-1.0) mg/dL AST (15-37) IU/L ALT (14-63) IU/L Alkaline Phosphatase (46-116) U/L Total Protein (6.4-8.2) g/dL Albumin (3.4-5.0) g/dL Globulin (2.6-4.0) g/dL Albumin/Globulin Ratio (0.9-1.6) Urine Color DARK YELLOW Urine Appearance SLT CLOUDY Urine pH 6.5 (5.0-8.0) Ur Specific [place] >= 1.030 (1.001-1.035) Urine Protein TRACE H (NEGATIVE) mg/dL Urine Glucose (UA) NEGATIVE (NEGATIVE) mg/dL Urine Ketones NEGATIVE (NEGATIVE) mg/dL Urine Occult Blood LARGE H (NEGATIVE) Urine Nitrite NEGATIVE (NEGATIVE) Urine Bilirubin NEGATIVE (NEGATIVE) Urine Urobilinogen 1.0 (<2.0) EU/dL Ur Leukocyte Esterase NEGATIVE (NEGATIVE) Urine RBC 1-3 (0-2/HPF) Urine WBC 2-5 (0-5/HPF) Ur Epithelial Cells MANY (NONE-FEW) Amorphous Sediment LIGHT (NEGATIVE) Urine Bacteria FEW (NEGATIVE) Urine Mucus MODERATE (NONE-MOD) Urine HCG, Qual NEGATIVE (NEGATIVE) 03/13/20 Range/Units 19:39 WBC (4.0-11.0) K/uL RBC (4.30-5.90) M/uL Hgb (12.0-16.0) g/dL Hct (36.0-46.0) % MCV (80.0-98.0) fL MCH (27.0-32.0) pg MCHC (31.0-37.0) g/dL RDW Std Deviation (28.0-62.0) fl RDW Coeff of Ana (11.0-15.0) % Plt Count (150-400) K/uL MPV (7.40-12.00) fL Nucleated RBC % /100WBC Nucleated RBCs # K/uL Sodium 143 (136-145) mmol/L Potassium 3.7 (3.5-5.1) mmol/L Chloride 105 (98-107) mmol/L Carbon Dioxide 27.9 (21.0-32.0) mmol/L BUN 15 (7.0-18.0) mg/dL Creatinine 0.8 (0.6-1.0) mg/dL Est Cr Clr Drug Dosing 83.54 mL/min Estimated GFR (MDRD) > 60.0 ml/min Glucose 80 (74-106) mg/dL Calcium 8.7 (8.5-10.1) mg/dL Total Bilirubin 0.2 (0.2-1.0) mg/dL AST 13 L (15-37) IU/L ALT 19 (14-63) IU/L Alkaline Phosphatase 39 L (46-116) U/L Total Protein 7.1 (6.4-8.2) g/dL Albumin 4.0 (3.4-5.0) g/dL Globulin 3.1 (2.6-4.0) g/dL Albumin/Globulin Ratio 1.3 (0.9-1.6) Urine Color Urine Appearance Urine pH (5.0-8.0) Ur Specific [place] (1.001-1.035) Urine Protein (NEGATIVE) mg/dL Urine Glucose (UA) (NEGATIVE) mg/dL Urine Ketones (NEGATIVE) mg/dL Urine Occult Blood (NEGATIVE) Urine Nitrite (NEGATIVE) Urine Bilirubin (NEGATIVE) Urine Urobilinogen (<2.0) EU/dL Ur Leukocyte Esterase (NEGATIVE) Urine RBC (0-2/HPF) Urine WBC (0-5/HPF) Ur Epithelial Cells (NONE-FEW) Amorphous Sediment (NEGATIVE) Urine Bacteria (NEGATIVE) Urine Mucus (NONE-MOD) Urine HCG, Qual (NEGATIVE) Meds: Medications Discontinued Medications Generic Name Dose Route Start Last Admin Trade Name Freq PRN Reason Stop Dose Admin Sodium Chloride 1,000 mls @ 999 mls/hr 03/13/20 19:30 03/13/20 19:42 Normal Saline IV 03/13/20 20:30 999 mls/hr .Bolus ONE Administration Ketorolac Tromethamine 15 mg 03/13/20 19:35 03/13/20 19:44 Toradol IVPUSH 03/13/20 19:36 15 mg ONETIME ONE Administration Departure - Departure Time of Disposition: 21:01 Disposition: Home, Self-Care 01 Condition: Good Clinical Impression: Headache, Weakness, Dehydration UTI (urinary tract infection) Qualifiers: Urinary tract infection type: site unspecified Hematuria presence: without hematuria Qualified Code(s): N39.0 - Urinary tract infection, site not specified - Discharge Information *PRESCRIPTION DRUG MONITORING PROGRAM REVIEWED*: Not Applicable *COPY OF PRESCRIPTION DRUG MONITORING REPORT IN PATIENT LIVAN: Not Applicable Instructions: Fatigue, Dehydration, Adult, [id number], General Headache Without Cause, [id number] Referrals: Annamaria Lee DO [Primary Care Provider] - Additional Instructions: Please go home and get plenty of rest tonight. Make sure you drink plenty of liquids over the next 24 hours. If you have persistent symptoms please make an appointment to see your doctor in 1 to 2 days. Sepsis Event Note (ED) - Evaluation Sepsis Screening Result: No Definite Risk - Focused Exam Vital Signs: Vital Signs Temp Pulse Resp BP Pulse Ox 03/13/20 18:50 98.5 F 89 18 97/41 L 99
== END 2020-03-13 21:10 | disposition home or self-care (01) ==
LOC: MW.ED 18:27
DX: E86.0 Dehydration (principal); N39.0 Urinary tract infection, site not specified; Z88.8 Allergy status to other drugs, medicaments and biological substances; F41.9 Anxiety disorder, unspecified; F32.9 Major depressive disorder, single episode, unspecified; Z79.899 Other long term (current) drug therapy
CPT/HCPCS: 36415; 80053; 81001; 81025; 85027; 96361; 96374; 99285; J1885; J7030

== ENCOUNTER 2020-05-27 14:20 | Emergency (ER) | payer SELFPAY ==
--- NOTE | 2020-05-27 14:42 | EDM.PDOC ---
ED HPI GENERAL MEDICAL PROBLEM - General Chief Complaint: General Stated Complaint: MED CLEAR Time Seen by Provider: 05/27/20 14:23 Source of Information: Reports: Patient History Limitations: Reports: No Limitations - History of Present Illness INITIAL COMMENTS - FREE TEXT/NARRATIVE: HISTORY AND PHYSICAL: History of present illness: Patient is a 34-year-old female who presents to the ED today in law enforcement custody for medical screening for incarceration. Patient has no symptoms or concerns at this time. Patient denies fever, chills, chest pain, shortness of breath, or cough. Denies headache, neck stiff ness, change in vision, syncope, or near syncope. Denies nausea, vomiting, abdominal pain, diarrhea, constipation, or dysuria. Has not noted any blood in urine or stool. Patient has been eating and drinking appropriately. Review of systems: As per history of present illness and below otherwise all systems reviewed and negative. Past medical history: As per history of present illness and as reviewed below otherwise noncontributory. Surgical history: As per history of present illness and as reviewed below otherwise noncontributory. Social history: See social history for further information Family history: As per history of present illness and as reviewed below otherwise noncontributory. Physical exam: General: Patient is alert, oriented, and in no acute distress. Patient sitting comfortably on exam table. HEENT: Atraumatic, normocephalic, pupils equal and reactive bilaterally, negative for conjunctival pallor or scleral icterus, mucous membranes moist, TMs normal bilaterally, throat clear, neck supple, nontender, trachea midline. No drooling or trismus noted. No meningeal signs. No hot potato voice noted. Lungs: Clear to auscultation, breath sounds equal bilaterally, chest nontender. Heart: S1S2, regular rate and rhythm without overt murmur Abdomen: Soft, nondistended, nontender. Negative for masses or hepatosplenomegaly. Negative for costovertebral tenderness. Pelvis: Stable nontender. Genitourinary: Deferred. Rectal: Deferred. Skin: Intact, warm, dry. No lesions or rashes noted. Extremities: Atraumatic, negative for cords or calf pain. Neurovascular unremarkable. Neuro: Awake, alert, oriented. Cranial nerves II through XII unremarkable. Cerebellum unremarkable. Motor and sensory unremarkable throughout. Exam nonfocal. Notes: Discussed importance for follow-up with a primary care provider. Voices understanding and is agreeable to plan of care. Denies any further questions or concerns at this time. Diagnostics: None Therapeutics: None Prescription: None Impression: Medical screening for incarceration Plan: Medically screened for incarceration. Discharged to law enforcement custody. Definitive disposition and diagnosis as appropriate pending reevaluation and review of above. - Related Data Allergies Allergy/AdvReac Type Severity Reaction Status Date / Time lurasidone [From Latuda] Allergy Hives Verified 05/27/20 14:37 Home Meds: Home Meds cloNIDine [Catapres] 0.1 mg PO DAILY 03/13/20 [History] Prazosin [Minpress] 1 mg PO BEDTIME 05/27/20 [History] Sertraline [Zoloft] 125 mg PO DAILY 05/27/20 [History] hydrOXYzine HCL [Atarax] 25 mg PO BID PRN 05/27/20 [History] Past Medical History - Past Health History Medical/Surgical History: Denies Medical/Surgical History HEENT History: Reports: Other (See Below) Other HEENT History: wears glasses Cardiovascular History: Reports: None Respiratory History: Reports: None Gastrointestinal History: Reports: Hepatitis Other Gastrointestinal History: HX of Hepatitis C- took medication and is now negative Genitourinary History: Reports: None [employer]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: Musculoskeletal History: Reports: Fracture, Fibromyalgia Other Musculoskeletal History: hx of fx left wrist Neurological History: Reports: Concussion Psychiatric History: Reports: Anxiety, Depression, PTSD Endocrine/Metabolic History: Reports: None Hematologic History: Reports: None Immunologic History: Reports: None Oncologic (Cancer) History: Reports: None Dermatologic History: Reports: None - Infectious Disease History Infectious Disease History: Reports: None - Past Surgical History Head Surgeries/Procedures: Reports: None HEENT Surgical History: Reports: None Cardiovascular Surgical History: Reports: None Respiratory Surgical History: Reports: None GI Surgical History: Reports: None Female Surgical History: Reports: Other (See Below) Other Female Surgeries/Procedures: Laparoscopy Endocrine Surgical History: Reports: None Neurological Surgical History: Reports: None Musculoskeletal Surgical History: Reports: Other (See Below) Other Musculoskeletal Surgeries/Procedures:: hx of I&D of arm abscess Oncologic Surgical History: Reports: None Dermatological Surgical History: Reports: None Social & Family History - Family History Family Medical History: Noncontributory Cardiac: Reports: CAD Oncologic: Reports: Other (See Below) Other Oncologic Family History: CA - Caffeine Use Caffeine Use: Reports: Coffee Caffeine Use Comment: 1-2/day ED ROS GENERAL - Review of Systems Review Of Systems: Comprehensive ROS is negative, except as noted in HPI. ED EXAM, GENERAL - Physical Exam Exam: See Below (see dictation) Course - Vital Signs Last Recorded V/S: Last Vital Signs Temp 96.3 F L 05/27/20 14:43 Pulse 68 05/27/20 14:43 Resp 16 05/27/20 14:43 BP 105/49 L 05/27/20 14:43 Pulse Ox 96 05/27/20 14:43 Departure - Departure Time of Disposition: 15:05 Disposition: Home, Self-Care 01 Clinical Impression: Medical clearance for incarceration - Discharge Information Instructions: Health Maintenance, Female Referrals: Annamaria Lee DO [Primary Care Provider] - Forms: ED Department Discharge Additional Instructions: The following information is given to patients seen in the emergency department who are being discharged to home. This information is to outline your options for follow-up care. We provide all patients seen in our emergency department with a follow-up referral. The need for follow-up, as well as the timing and circumstances, are variable depending upon the specifics of your emergency department visit. If you don't have a primary care physician on staff, we will provide you with a referral. We always advise you to contact your personal physician following an emergency department visit to inform them of the circumstance of the visit and for follow-up with them and/or the need for any referrals to a consulting specialist. The emergency department will also refer you to a specialist when appropriate. This referral assures that you have the opportunity for follow-up care with a specialist. All of these measure are taken in an effort to provide you with optimal care, which includes your follow-up. Under all circumstances we always encourage you to contact your private physician who remains a resource for coordinating your care. When calling for follow-up care, please make the office aware that this follow-up is from your recent emergency room visit. If for any reason you are refused follow-up, please contact the [facility] Emergency Department at and asked to speak to the emergency department charge nurse. [facility] [address] [place] [address] [facility] [address] [place] [id number] Sepsis Event Note (ED) - Focused Exam Vital Signs: Vital Signs Temp Pulse Resp BP Pulse Ox 05/27/20 14:43 96.3 F L 68 16 105/49 L 96
[2020-05-27 14:49] VITALS: BP 105/49; PULSE 68
== END 2020-05-27 15:25 ==
LOC: MW.ED 14:20
DX: Z02.89 Encounter for other administrative examinations (principal); F41.9 Anxiety disorder, unspecified; F32.9 Major depressive disorder, single episode, unspecified; Z79.899 Other long term (current) drug therapy; Z88.8 Allergy status to other drugs, medicaments and biological substances
CPT/HCPCS: 99282; 99283

== ENCOUNTER 2020-06-21 10:37 | Emergency (ER) | payer SELFPAY ==
[2020-06-21 10:51] VITALS: BP 121/72; PULSE 88
--- NOTE | 2020-06-21 10:53 | EDM.PDOC ---
ED HPI GENERAL MEDICAL PROBLEM - General Chief Complaint: Lower Extremity Injury/Pain Stated Complaint: FOOT INJURY Time Seen by Provider: 06/21/20 10:39 Source of Information: Reports: Patient History Limitations: Reports: No Limitations - History of Present Illness INITIAL COMMENTS - FREE TEXT/NARRATIVE: HISTORY AND PHYSICAL: History of present illness: Patient is a 34-year-old female who presents to the emergency room with complaints of right foot pain. She states last evening she had stepped incorrectly and felt immediate pain to the anterior mid right foot. She denies hitting her head or having any loss of consciousness. Denies any other extremity involvement. She offers no systemic complaints. Review of systems: As per history of present illness and below otherwise all systems reviewed and negative. Past medical history: As per history of present illness and as reviewed below otherwise noncontributory. Surgical history: As per history of present illness and as reviewed below otherwise noncontributory. Social history: See social history for further information Family history: As per history of present illness and as reviewed below otherwise no ncontributory. Physical exam: General: Well developed and well nourished. Alert and orientated x 3. Nontoxic in appearance and in no acute distress. Vital signs are stable and have been reviewed by me. Nursing notes were reviewed. HEENT: Atraumatic, normocephalic, pupils equal and reactive bilaterally, negative for conjunctival pallor or scleral icterus, mucous membranes moist, TMs normal bilaterally, throat clear, neck supple, nontender, trachea midline. No drooling or trismus noted. No meningeal signs. No hot potato voice noted. Lungs: Clear to auscultation, breath sounds equal bilaterally, chest nontender. Normal work of breathing, no accessory muscles used. Heart: S1S2, regular rate and rhythm without overt murmur Abdomen: Soft, nondistended, nontender. Skin: Intact, warm, dry. No lesions or rashes noted. Hematologic: No petechiae or purpra. Mucosa appropriate color and normal nail bed color and refill. Extremities: Pain with palpation of the right mid anterior foot. She is able to bear weight. Moves all extremities per self without difficulty or deficits, negative for cords or calf pain. No malleoli or tenderness. Pedal and pretibial pulse. Neurovascular unremarkable. Neuro: Awake, alert, oriented. Cranial nerves II through XII unremarkable. Cerebellum unremarkable. Motor and sensory unremarkable throughout. Exam nonfocal. Notes: X-ray shows no acute abnormality. Minimal jon of bone is noted off the corner base of the first metatarsal likely related to an old injury. Patient was offered and fitted for crutches. Toradol IM was given for pain management, per patient request for medication. I have spoken with the patient/caregiver and discussed today's findings, in addition to providing specific details for plan of care. Reassessment at the time of disposition demonstrates that the patient is in no acute distress. The patient is stable for discharge, counseling was provided and we discussed in great detail signs and symptoms that would prompt them to return to the Emergency Department. Medication, follow up and supportive care measures were reviewed and discussed. Voices understanding and is agreeable to plan of care. Denies any further questions or concerns at this time. Diagnostics: X-ray Therapeutics: Crutches, Toradol IM Prescription: Diclofenac Impression: Foot strain Plan: 1. Rest, ice, elevate the affected extremity. Please use the crutches as directed. 2. Tylenol and/or Ibuprofen as needed for pain management. 3. Follow up with the Orthopedic provider as we discussed. Return to the ED as needed and as discussed. Definitive disposition and diagnosis as appropriate pending reevaluation and review of above. Right Foot Pain Score (Numeric/FACES): 7 - Related Data Allergies Allergy/AdvReac Type Severity Reaction Status Date / Time lurasidone [From Latuda] Allergy Hives Verified 06/21/20 10:44 Home Meds: Home Meds cloNIDine [Catapres] 0.1 mg PO DAILY 03/13/20 [History] Sertraline [Zoloft] 125 mg PO DAILY 05/27/20 [History] hydrOXYzine HCL [Atarax] 25 mg PO BID PRN 05/27/20 [History] ARIPiprazole [Abilify] 10 mg PO DAILY 06/21/20 [History] Past Medical History - Past Health History Medical/Surgical History: Denies Medical/Surgical History HEENT History: Reports: Other (See Below) Other HEENT History: wears glasses Cardiovascular History: Reports: None Respiratory History: Reports: None Gastrointestinal History: Reports: Hepatitis Other Gastrointestinal History: HX of Hepatitis C- took medication and is now negative Genitourinary History: Reports: None 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: Musculoskeletal History: Reports: Fracture, Fibromyalgia Other Musculoskeletal History: hx of fx left wrist Neurological History: Reports: Concussion Psychiatric History: Reports: Anxiety, Depression, PTSD Endocrine/Metabolic History: Reports: None Hematologic History: Reports: None Immunologic History: Reports: None Oncologic (Cancer) History: Reports: None Dermatologic History: Reports: None - Infectious Disease History Infectious Disease History: Reports: None - Past Surgical History Head Surgeries/Procedures: Reports: None HEENT Surgical History: Reports: None Cardiovascular Surgical History: Reports: None Respiratory Surgical History: Reports: None GI Surgical History: Reports: None Female Surgical History: Reports: Other (See Below) Other Female Surgeries/Procedures: Laparoscopy Endocrine Surgical History: Reports: None Neurological Surgical History: Reports: None Musculoskeletal Surgical History: Reports: Other (See Below) Other Musculoskeletal Surgeries/Procedures:: hx of I&D of arm abscess Oncologic Surgical History: Reports: None Dermatological Surgical History: Reports: None Social & Family History - Family History Family Medical History: Noncontributory Cardiac: Reports: CAD Oncologic: Reports: Other (See Below) Other Oncologic Family History: CA - Caffeine Use Caffeine Use: Reports: Coffee Caffeine Use Comment: 1-2/day Review of Systems - Review of Systems Review Of Systems: Comprehensive ROS is negative, except as noted in HPI. ED EXAM, GENERAL - Physical Exam Exam: See Below (See dictation) Course - Vital Signs Last Recorded V/S: Last Vital Signs Temp 98.4 F 06/21/20 10:46 Pulse 88 06/21/20 10:46 Resp 16 06/21/20 10:46 BP 121/72 06/21/20 10:46 Pulse Ox 100 06/21/20 10:46 - Orders/Labs/Meds Meds: Medications Discontinued Medications Generic Name Dose Route Start Last Admin Trade Name Freq PRN Reason Stop Dose Admin Ketorolac Tromethamine 60 mg 06/21/20 11:29 06/21/20 11:34 Toradol IM 06/21/20 11:30 60 mg ONETIME ONE Administration Departure - Departure Time of Disposition: 11:42 Disposition: Home, Self-Care 01 Clinical Impression: Right foot sprain Qualifiers: Encounter type: initial encounter Qualified Code(s): S93.601A - Unspecified sprain of right foot, initial encounter - Discharge Information Instructions: Foot Sprain Referrals: Annamaria Lee DO [Primary Care Provider] - Forms: ED Department Discharge Additional Instructions: The following information is given to patients seen in the emergency department who are being discharged to home. This information is to outline your options for follow-up care. We provide all patients seen in our emergency department with a follow-up referral. The need for follow-up, as well as the timing and circumstances, are variable depending upon the specifics of your emergency department visit. If you don't have a primary care physician on staff, we will provide you with a referral. We always advise you to contact your personal physician following an emergency department visit to inform them of the circumstance of the visit and for follow-up with them and/or the need for any referrals to a consulting specialist. The emergency department will also refer you to a specialist when appropriate. This referral assures that you have the opportunity for follow-up care with a specialist. All of these measure are taken in an effort to provide you with optimal care, which includes your follow-up. Under all circumstances we always encourage you to contact your private physician who remains a resource for coordinating your care. When calling for follow-up care, please make the office aware that this follow-up is from your recent emergency room visit. If for any reason you are refused follow-up, please contact the [facility] Emergency Department at and asked to speak to the emergency department charge nurse. [facility] [address] [place] [address] [place] [address] Thank you for choosing the [facility] emergency department in [place] for your medical needs today. It was a pleasure caring for you. Today you were seen in the emergency department for foot injury and pain. 1. Normal X-ray, no fractures. Rest, ice, elevate the affected extremity. Please use crutches as directed. 2. Tylenol and/or Ibuprofen as needed for pain management. 3. Follow up with the Orthopedic/[employer] provider as we discussed. Return to the ED as needed and as discussed. Sepsis Event Note (ED) - Focused Exam Vital Signs: Vital Signs Temp Pulse Resp BP Pulse Ox 06/21/20 10:46 98.4 F 88 16 121/72 100
[2020-06-21] MEDS ORDERED: Ketorolac 60 MG/2 ML SDV IM ONE (11:29)
--- NOTE | 2020-06-21 11:36 | CR ---
Right foot: 3 views of the right foot were obtained. Comparison: No previous study. Joint spaces are maintained. Minimal jon of bone is noted off the corner base of the first metatarsal likely relating to old injury. No acute fracture, dislocation or other bony abnormality is appreciated. Impression: 1. No acute abnormality is appreciated on 3 view right foot exam. Diagnostic code #2 This report was dictated in MDT
== END 2020-06-21 11:55 | disposition home or self-care (01) ==
LOC: MW.ED 10:37
DX: S96.911A Strain of unspecified muscle and tendon at ankle and foot level, right foot, initial encounter (principal); S93.601A Unspecified sprain of right foot, initial encounter; F41.9 Anxiety disorder, unspecified; F32.9 Major depressive disorder, single episode, unspecified; Z88.8 Allergy status to other drugs, medicaments and biological substances; Z79.899 Other long term (current) drug therapy; W22.8XXA Striking against or struck by other objects, initial encounter
CPT/HCPCS: 73630; 96372; 99283; J1885

== ENCOUNTER 2020-12-09 15:15 | Emergency (ER) | payer SELFPAY ==
--- NOTE | 2020-12-09 15:27 | EDM.PDOC ---
<Ish Waller - Last Filed: 12/09/20 15:40> ED HPI GENERAL MEDICAL PROBLEM - General Chief Complaint: Behavioral/Psych Stated Complaint: MED CLEAR Time Seen by Provider: 12/09/20 15:17 - Related Data Allergies Allergy/AdvReac Type Severity Reaction Status Date / Time lurasidone [From Latuda] Allergy Hives Verified 12/09/20 15:32 Home Meds: Home Meds cloNIDine [Catapres] 0.1 mg PO DAILY 03/13/20 [History] Sertraline [Zoloft] 125 mg PO DAILY 05/27/20 [History] hydrOXYzine HCL [Atarax] 25 mg PO BID PRN 05/27/20 [History] ARIPiprazole [Abilify] 10 mg PO DAILY 06/21/20 [History] Diclofenac Sodium [Voltaren] 75 mg PO BIDMEALS PRN #30 tab.cr 06/21/20 [Rx] Departure - Departure Disposition: DC/Tfer to Court of Law En 21 Clinical Impression: Encounter for medical screening examination - Discharge Information Referrals: Annamaria Lee DO [Primary Care Provider] - Forms: ED Department Discharge Additional Instructions: The following information is given to patients seen in the emergency department who are being discharged to home. This information is to outline your options for follow-up care. We provide all patients seen in our emergency department with a follow-up referral. The need for follow-up, as well as the timing and circumstances, are variable depending upon the specifics of your emergency department visit. If you don't have a primary care physician on staff, we will provide you with a referral. We always advise you to contact your personal physician following an emergency department visit to inform them of the circumstance of the visit and for follow-up with them and/or the need for any referrals to a consulting specialist. The emergency department will also refer you to a specialist when appropriate. This referral assures that you have the opportunity for follow-up care with a specialist. All of these measure are taken in an effort to provide you with optimal care, which includes your follow-up. Under all circumstances we always encourage you to contact your private physician who remains a resource for coordinating your care. When calling for follow-up care, please make the office aware that this follow-up is from your recent emergency room visit. If for any reason you are refused follow-up, please contact the [facility] Emergency Department at and asked to speak to the emergency department charge nurse. [facility] [address] [place] [address] [address] <Margoth Olson - Last Filed: 12/09/20 17:12> ED HPI GENERAL MEDICAL PROBLEM - General Source of Information: Reports: Patient, Police History Limitations: Reports: No Limitations - History of Present Illness INITIAL COMMENTS - FREE TEXT/NARRATIVE: HISTORY AND PHYSICAL: History of present illness: Patient is a 35-year-old female who presents to the ED today in the enforcement custody for medical screening for a court ordered psychiatric transfer. Law enforcement has court ordered psychiatric paperwork with them for inpatient psychiatry/chemical dependency inpatient evaluation. Patient denies any homicidal or suicidal ideation but states that she does have a history of bipolar. Paperwork brought in my law enforcement indicates that patient is deemed a harm to herself and others due to her chemical dependency with methamphetamine and heroin. Patient denies fever, chills, chest pain, shortness of breath, or cough. Denies headache, neck stiff ness, change in vision, syncope, or near syncope. Denies nausea, vomiting, abdominal pain, diarrhea, constipation, or dysuria. Has not noted any blood in urine or stool. Patient has been eating and drinking appropriately. Review of systems: As per history of present illness and below otherwise all systems reviewed and negative. Past medical history: As per history of present illness and as reviewed below otherwise noncontributory. Surgical history: As per history of present illness and as reviewed below otherwise noncontributory. Social history: See social history for further information Family history: As per history of present illness and as reviewed below otherwise noncontributory. Physical exam: General: Patient is alert, oriented, and in no acute distress. Patient sitting comfortably on exam table. Vitals stable and reviewed by me. HEENT: Atraumatic, normocephalic, pupils equal and reactive bilaterally, negative for conjunctival pallor or scleral icterus, mucous membranes moist, TMs normal bilaterally, throat clear, neck supple, nontender, trachea midline. No drooling or trismus noted. No meningeal signs. No hot potato voice noted. Lungs: Clear to auscultation, breath sounds equal bilaterally, chest nontender. Heart: S1S2, regular rate and rhythm without overt murmur Abdomen: Soft, nondistended, nontender. Negative for masses or hep atosplenomegaly. Negative for costovertebral tenderness. Pelvis: Stable nontender. Genitourinary: Deferred. Rectal: Deferred. Skin: Intact, warm, dry. No lesions or rashes noted. Extremities: Atraumatic, negative for cords or calf pain. Neurovascular unremarkable. Neuro: Awake, alert, oriented. Cranial nerves II through XII unremarkable. Cerebellum unremarkable. Motor and sensory unremarkable throughout. Exam nonfocal. Notes: I did call and speak to the psychiatrist at [facility] and thoroughly discussed patients case. He is accepting of transfer but would like patient to be evaluated in the ER at [place]. Diagnostics: CBC, CMP, UA, urine hCG, UDS, ethanol, salicylate, acetaminophen, magnesium, TSH, EKG Therapeutics: None Impression: Medical screening exam Plan: Discharged to law enforcement custody Definitive disposition and diagnosis as appropriate pending reevaluation and review of above. 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: Musculoskeletal History: Reports: Fracture, Fibromyalgia Other Musculoskeletal History: hx of fx left wrist Neurological History: Reports: Concussion Psychiatric History: Reports: Anxiety, Depression, PTSD Endocrine/Metabolic History: Reports: None Hematologic History: Reports: None Immunologic History: Reports: None Oncologic (Cancer) History: Reports: None Dermatologic History: Reports: None - Infectious Disease History Infectious Disease History: Reports: None - Past Surgical History Head Surgeries/Procedures: Reports: None HEENT Surgical History: Reports: None Cardiovascular Surgical History: Reports: None Respiratory Surgical History: Reports: None GI Surgical History: Reports: None Female Surgical History: Reports: Other (See Below) Other Female Surgeries/Procedures: Laparoscopy Endocrine Surgical History: Reports: None Neurological Surgical History: Reports: None Musculoskeletal Surgical History: Reports: Other (See Below) Other Musculoskeletal Surgeries/Procedures:: hx of I&D of arm abscess Oncologic Surgical History: Reports: None Dermatological Surgical History: Reports: None Social & Family History - Family History Family Medical History: No Pertinent Family History Cardiac: Reports: CAD Oncologic: Reports: Other (See Below) Other Oncologic Family History: CA - Caffeine Use Caffeine Use: Reports: Coffee Caffeine Use Comment: 1-2/day ED ROS GENERAL - Review of Systems Review Of Systems: Comprehensive ROS is negative, except as noted in HPI. ED EXAM, GENERAL - Physical Exam Exam: See Below (see dictation) Course - Vital Signs Last Recorded V/S: Last Vital Signs Temp 97.2 F 12/09/20 15:29 Pulse 98 12/09/20 15:29 Resp 18 12/09/20 15:29 BP 124/80 12/09/20 15:29 Pulse Ox 95 12/09/20 15:29 - Orders/Labs/Meds Orders: Active Orders 24 hr Category Date Time Status EKG Documentation Completion [RC] STAT Care 12/09/20 15:23 Active Labs: Laboratory Tests 12/09/20 12/09/20 12/09/20 Range/Units 15:48 15:48 15:48 WBC 7.08 (4.0-11.0) K/uL RBC 4.99 (4.30-5.90) M/uL Hgb 15.8 (12.0-16.0) g/dL Hct 46.4 H (36.0-46.0) % MCV 93.0 (80.0-98.0) fL MCH 31.7 (27.0-32.0) pg MCHC 34.1 (31.0-37.0) g/dL RDW Std Deviation 42.0 (28.0-62.0) fl RDW Coeff of Ana 13 (11.0-15.0) % Plt Count 309 (150-400) K/uL MPV 9.20 (7.40-12.00) fL Neut % (Auto) 71.1 (48.0-80.0) % Lymph % (Auto) 21.3 (16.0-40.0) % [place] % (Auto) 6.5 (0.0-15.0) % Eos % (Auto) 0.8 (0.0-7.0) % Baso % (Auto) 0.3 (0.0-1.5) % Neut # (Auto) 5.0 (1.4-5.7) K/uL Lymph # (Auto) 1.5 (0.6-2.4) K/uL [place] # (Auto) 0.5 (0.0-0.8) K/uL Eos # (Auto) 0.1 (0.0-0.7) K/uL Baso # (Auto) 0.0 (0.0-0.1) K/uL Nucleated RBC % 0.0 /100WBC Nucleated RBCs # 0 K/uL Sodium 141 (136-145) mmol/L Potassium 4.5 (3.5-5.1) mmol/L Chloride 103 (98-107) mmol/L Carbon Dioxide 26.3 (21.0-32.0) mmol/L BUN 13 (7.0-18.0) mg/dL Creatinine 0.8 (0.6-1.0) mg/dL Est Cr Clr Drug Dosing 86.64 mL/min Estimated GFR (MDRD) > 60.0 ml/min Glucose 104 (74-106) mg/dL Calcium 9.9 (8.5-10.1) mg/dL Magnesium 2.5 H (1.8-2.4) mg/dL Total Bilirubin 0.5 (0.2-1.0) mg/dL AST 31 (15-37) IU/L ALT 26 (14-63) IU/L Alkaline Phosphatase 52 (46-116) U/L Total Protein 8.5 H (6.4-8.2) g/dL Albumin 4.4 (3.4-5.0) g/dL Globulin 4.1 H (2.6-4.0) g/dL Albumin/Globulin Ratio 1.1 (0.9-1.6) TSH 3rd Generation 0.44 (0.36-3.74) uIU/mL HCG, Qual NEGATIVE (NEG) Urine Color Urine Appearance Urine pH (5.0-8.0) Ur Specific [place] (1.001-1.035) Urine Protein (NEGATIVE) mg/dL Urine Glucose (UA) (NEGATIVE) mg/dL Urine Ketones (NEGATIVE) mg/dL Urine Occult Blood (NEGATIVE) Urine Nitrite (NEGATIVE) Urine Bilirubin (NEGATIVE) Urine Urobilinogen (<2.0) EU/dL Ur Leukocyte Esterase (NEGATIVE) Urine RBC (0-2/HPF) Urine WBC (0-5/HPF) Ur Epithelial Cells (NONE-FEW) Amorphous Sediment (NEGATIVE) Urine Bacteria (NEGATIVE) Urine Mucus (NONE-MOD) Salicylates 3.5 (0-20) mg/dL Urine Opiates Screen (NEGATIVE) Ur Oxycodone Screen (NEGATIVE) Urine Methadone Screen (NEGATIVE) Acetaminophen <2.0 ug/mL Ur Barbiturates Screen (NEGATIVE) Ur Phencyclidine Scrn (NEGATIVE) Ur Amphetamine Screen (NEGATIVE) U Methamphetamines Scrn (NEGATIVE) U Benzodiazepines Scrn (NEGATIVE) U Cocaine Metab Screen (NEGATIVE) U Marijuana (THC) Screen (NEGATIVE) Ethyl Alcohol 5 mg/dL 12/09/20 12/09/20 Range/Units 16:30 16:30 WBC (4.0-11.0) K/uL RBC (4.30-5.90) M/uL Hgb (12.0-16.0) g/dL Hct (36.0-46.0) % MCV (80.0-98.0) fL MCH (27.0-32.0) pg MCHC (31.0-37.0) g/dL RDW Std Deviation (28.0-62.0) fl RDW Coeff of Ana (11.0-15.0) % Plt Count (150-400) K/uL MPV (7.40-12.00) fL Neut % (Auto) (48.0-80.0) % Lymph % (Auto) (16.0-40.0) % [place] % (Auto) (0.0-15.0) % Eos % (Auto) (0.0-7.0) % Baso % (Auto) (0.0-1.5) % Neut # (Auto) (1.4-5.7) K/uL Lymph # (Auto) (0.6-2.4) K/uL [place] # (Auto) (0.0-0.8) K/uL Eos # (Auto) (0.0-0.7) K/uL Baso # (Auto) (0.0-0.1) K/uL Nucleated RBC % /100WBC Nucleated RBCs # K/uL Sodium (136-145) mmol/L Potassium (3.5-5.1) mmol/L Chloride (98-107) mmol/L Carbon Dioxide (21.0-32.0) mmol/L BUN (7.0-18.0) mg/dL Creatinine (0.6-1.0) mg/dL Est Cr Clr Drug Dosing mL/min Estimated GFR (MDRD) ml/min Glucose (74-106) mg/dL Calcium (8.5-10.1) mg/dL Magnesium (1.8-2.4) mg/dL Total Bilirubin (0.2-1.0) mg/dL AST (15-37) IU/L ALT (14-63) IU/L Alkaline Phosphatase (46-116) U/L Total Protein (6.4-8.2) g/dL Albumin (3.4-5.0) g/dL Globulin (2.6-4.0) g/dL Albumin/Globulin Ratio (0.9-1.6) TSH 3rd Generation (0.36-3.74) uIU/mL HCG, Qual (NEG) Urine Color YELLOW Urine Appearance CLOUDY Urine pH 7.5 (5.0-8.0) Ur Specific [place] 1.025 (1.001-1.035) Urine Protein NEGATIVE (NEGATIVE) mg/dL Urine Glucose (UA) NEGATIVE (NEGATIVE) mg/dL Urine Ketones NEGATIVE (NEGATIVE) mg/dL Urine Occult Blood NEGATIVE (NEGATIVE) Urine Nitrite NEGATIVE (NEGATIVE) Urine Bilirubin NEGATIVE (NEGATIVE) Urine Urobilinogen 0.2 (<2.0) EU/dL Ur Leukocyte Esterase NEGATIVE (NEGATIVE) Urine RBC 0-1 (0-2/HPF) Urine WBC 1-3 (0-5/HPF) Ur Epithelial Cells MODERATE (NONE-FEW) Amorphous Sediment MODERATE (NEGATIVE) Urine Bacteria FEW (NEGATIVE) Urine Mucus LIGHT (NONE-MOD) Salicylates (0-20) mg/dL Urine Opiates Screen NEGATIVE (NEGATIVE) Ur Oxycodone Screen NEGATIVE (NEGATIVE) Urine Methadone Screen NEGATIVE (NEGATIVE) Acetaminophen ug/mL Ur Barbiturates Screen NEGATIVE (NEGATIVE) Ur Phencyclidine Scrn NEGATIVE (NEGATIVE) Ur Amphetamine Screen NEGATIVE (NEGATIVE) U Methamphetamines Scrn NEGATIVE (NEGATIVE) U Benzodiazepines Scrn NEGATIVE (NEGATIVE) U Cocaine Metab Screen NEGATIVE (NEGATIVE) U Marijuana (THC) Screen NEGATIVE (NEGATIVE) Ethyl Alcohol mg/dL Departure - Departure Time of Disposition: 17:09 Sepsis Event Note (ED) - Focused Exam Vital Signs: Vital Signs Temp Pulse Resp BP Pulse Ox 12/09/20 15:29 97.2 F 98 18 124/80 95 - My Orders Last 24 Hours: My Active Orders 12/09/20 15:23 EKG Documentation Completion [RC] STAT - Assessment/Plan Last 24 Hours: My Active Orders 12/09/20 15:23 EKG Documentation Completion [RC] STAT
--- NOTE | 2020-12-09 15:41 | PCM.SN.2 ---
- Free Text/Narrative Note: EKG done at 1531 hrs. sinus rhythm heart rate 92 [place] 83 [place] interval [address] and T no prior for comparison impression normal EKG
[2020-12-09 16:36] LABS: ACETAMINOPHEN <2.0 ug/mL; BLOOD UREA NITROGEN,BUN 13 mg/dL (7.0-18.0); CARBON DIOXIDE,CO2 26.3 mmol/L (21.0-32.0); CHLORIDE,CL 103 mmol/L (98-107); GLUCOSE RANDOM 104 mg/dL (74-106); POTASSIUM,K 4.5 mmol/L (3.5-5.1); SODIUM,NA 141 mmol/L (136-145)
[2020-12-09 17:22] VITALS: BP 105/69; PULSE 89
== END 2020-12-09 17:08 ==
LOC: MW.ED 15:15
DX: Z02.89 Encounter for other administrative examinations (principal); Z88.8 Allergy status to other drugs, medicaments and biological substances; Z79.899 Other long term (current) drug therapy
CPT/HCPCS: 36415; 80053; 80143; 80179; 80305-QW; 80307; 81001; 83735; 84443; 84703; 85025; 93005; 93010; 99283; 99283-25